=== PATIENT | female | born 1960 | race American Indian/Alaskan Native ===

== ENCOUNTER 2016-08-09 17:24 | Inpatient (IN) | payer OTHER ==
[2016-08-09] MEDS ORDERED: DULCOLAX PR PRN (18:00)
[2016-08-09] MEDS ORDERED: D50W (25GM) IV PRN (18:00)
[2016-08-09] MEDS ORDERED: SENOKOT PO PRN (18:00)
--- NOTE | 2016-08-09 18:14 | History and Physical Report ---
History of Present Illness Date: 08/09/16 Referring Facility: [facility] Date of admission: 08/09/16 17:24 Chief Complaint: acute bilateral CVAs History of present illness: POST ADMISSION PHYSICIAN EVALUATION ONSET DATE: 08/05/2016 IMPAIRMENT GROUP CODE: 01.4 ETIOLOGIC DIAGNOSIS: acute CVA; left cerebellar tonsil, lateral left cerebellum , right parieto-occipital region, right thalamus, left basal ganglia, left frontal lobe STATUS CHANGES SINCE PREADMISSION SCREENING: PAS has been reviewed. In comparison, improved alertness and swallowing on today; denies any coughing/ choking on pureed diet. Ongoing abdominal pain, however, this is chronic. Pt continues with functional deficits with gait and self cares secondary to acute CVA; remains an appropriate candidate for IRU admission. PREVIOUS FUNCTIONAL STATUS: Independent with ADLs, gait, transfers; occasionally used a straight cane in community CURRENT FUNCTIONAL STATUS: CGA-Garret for transfers; Garret for gait; Garret-totalA for ADLs HPI 55 y.o. female admitted to [facility] secondary to acute onset of altered mental status. MRI Brain showed multiple areas of acute infarction in the left cerebellar tonsil, lateral left cerebellum, right parieto-occipital region, right thalamus, left basal ganglia, left frontal lobe. Acute care course complicated by acute on chronic renal failure, improved with IV Fluids; uncontrolled HTN; UTI, treated with IV Levaquin. Pt downgraded from regular consistency to pureed diet after bedside swallow evaluation. Pt noted to have functional deficits when evaluated by PT and OT. Pt is now admitted for aggressive therapies and ongoing medical management. Past History Past Medical History: diabetes, hypertension, renal failure Past Surgical History: appendectomy, hysterectomy Social history: , lives with family. denies: smoking, alcohol abuse Family history: diabetes, hypertension Medications and Allergies Allergies Allergy/AdvReac Type Severity Reaction Status Date / Time morphine AdvReac Vomiting Verified 07/28/14 17:26 Home Medications Medication Instructions Recorded Confirmed Last Taken Type Nortriptyline [Pamelor] 50 mg PO QDAY #30 capsule 08/01/14 05/05/16 Unknown Rx cloNIDine [Catapres] 0.3 mg PO TID 30 Days 08/01/14 05/05/16 Unknown Rx AtorvaSTATin [Lipitor] 40 mg PO DAILY 04/06/16 08/09/16 Unknown History Clopidogrel [Plavix] 75 mg PO QDAY 04/06/16 05/05/16 Unknown History Glimepiride [Amaryl] 2 mg PO QAM 04/06/16 05/05/16 Unknown History Pantoprazole [Protonix TAB] 40 mg PO DAILY 04/06/16 05/05/16 Unknown History Sucralfate [Carafate] 1 gm PO HS 04/06/16 05/05/16 Unknown History cloNIDine [Catapres] 0.2 mg PO TID #90 tablet 04/11/16 05/05/16 Unknown Rx hydrALAZINE [Apresoline TAB] 25 mg PO Q8HR #90 tablet 04/11/16 05/05/16 Unknown Rx Insulin Detemir [Levemir VIAL] 25 units SQ BID 05/05/16 05/05/16 05/04/16 21:00 History 25 Clopidogrel [Plavix] 75 mg PO QDAY tablet 05/08/16 08/09/16 Unknown Rx Levofloxacin [Levaquin TAB] 750 mg PO Q48H #7 tablet 05/08/16 Unknown Rx Metoprolol [Lopressor TAB] 50 mg PO Q8H #90 tablet 05/08/16 Unknown Rx Bisacodyl [Dulcolax suppos] 10 mg CO QDAY PRN #30 supp.rect 08/09/16 08/09/16 Unknown Rx Dextrose 50% in Water [D50w (25Gm)] 50 ml IV PRN PRN #30 syringe 08/09/16 Unknown Rx Enoxaparin [Lovenox] 40 mg SUB-Q QDAY@1000 syringe 08/09/16 08/09/16 Unknown Rx Glimepiride [Amaryl] 2 mg PO QAMDIAB tablet 08/09/16 08/09/16 Unknown Rx Insulin Detemir [Levemir] 25 units SUB-Q BID units 08/09/16 08/09/16 Unknown Rx Levofloxacin [Levaquin TAB] 750 mg PO Q24HR #7 tablet 08/09/16 08/09/16 Unknown Rx Magnesium Hydroxide [Milk of 30 ml PO Q4H PRN #30 oral.liqd 08/09/16 08/09/16 Unknown Rx Magnesia] Metoprolol [Lopressor TAB] 50 mg PO BID #60 tablet 08/09/16 08/09/16 Unknown Rx Nortriptyline [Pamelor] 50 mg PO QDAY #30 capsule 08/09/16 08/09/16 Unknown Rx Ondansetron [Zofran INJ] 4 mg IV Q8H PRN #30 vial 08/09/16 Unknown Rx Pantoprazole [Protonix TAB] 40 mg PO DAILY tablet 08/09/16 08/09/16 Unknown Rx Sucralfate [Carafate] 1 gm PO HS oral.liqd 08/09/16 08/09/16 Unknown Rx cloNIDine [Catapres] 0.2 mg PO TID #30 tablet 08/09/16 08/09/16 Unknown Rx hydrALAZINE [Apresoline TAB] 25 mg PO Q8HR tablet 08/09/16 08/09/16 Unknown Rx Active Meds: Active Medications Acetaminophen (Tylenol) 650 mg PO Q4H PRN PRN Reason: Pain MILD(1-3)/Fever >100.5/GARCIA Atorvastatin Calcium (Lipitor) 40 mg PO QHS ROSA Bisacodyl (Dulcolax) 10 mg CO QDAY PRN PRN Reason: Constipation unrelieved by MOM Clonidine HCl (Catapres) 0.2 mg PO TID ROSA Clopidogrel Bisulfate (Plavix) 75 mg PO QDAY [facility] Dextrose (D50w (25gm)) 50 ml IV PRN PRN PRN Reason: Hypoglycemia Enoxaparin Sodium (Lovenox) 40 mg SUB-Q QDAY@1000 [facility] Hydralazine HCl (Apresoline) 25 mg PO Q8HR [facility] Insulin Aspart (Novolog) 0 units SUB-Q ACHS ROSA PRN Reason: Protocol Insulin Detemir (Levemir) 25 units SUB-Q BID [facility] Levofloxacin (Levaquin) 750 mg PO Q24HR [facility] Metoprolol Tartrate (Lopressor) 50 mg PO BID [facility] Nortriptyline HCl (Pamelor) 50 mg PO QDAY [facility] Oxycodone/Acetaminophen (Percocet 5/325) 1 tab PO Q6H PRN PRN Reason: Pain, Moderate (4-6) Pantoprazole Sodium (Protonix) 40 mg PO DAILY [facility] Senna (Senokot) 8.6 mg PO Q12H PRN PRN Reason: Laxative Effect Sucralfate (Carafate) 1 gm PO HS ROSA Review of Systems All systems: negative Eyes: right: blurred vision (intermittent) Ears, nose, mouth and throat: no headache Cardiovascular: no chest pain Respiratory: no cough Gastrointestinal: abdominal pain (chronic) Genitourinary Female: other (vera) Exam - Constitutional General appearance: no acute distress, obese, other (sitting up in bed) - EENT Eyes: EOM intact ENT: hearing intact - Neck Neck: supple, normal ROM - Respiratory Respiratory effort: normal Respiratory: bilateral: CTA - Cardiovascular Rhythm: regular Heart Sounds: Present: S1 & S2 - Extremities Extremities: No edema - Gastrointestinal General gastrointestinal: Present: soft, non-tender, non-distended, normal bowel sounds - Integumentary Integumentary: Present: clear - Neurologic Neurologic: moves all extremities (4/5 strength), other (mild dysarthria, mild facial droop; sensation grossly intact) - Psychiatric Psychiatric: intact judgment & insight, memory intact (flat affect), cooperative Assessment and Plan Assessment and plan: 55 y.o. female bilateral acute infarctions in the left cerebellar tonsil, lateral left cerebellum, right parieto-occipital region, right thalamus, left basal ganglia, left frontal lobe; gait dysfunction; dysphagia. The patient is medically stable, however, requires ongoing medical management. Pt is appropriate for inpatient rehabilitation admission and is thought to be able to tolerate at least 3 hours of therapy a day, 5 days a week including 1 hour of physical therapy, 1 hour of occupational therapy, and 1 hour of speech therapy. Patient is able to understand and follow basic directions and has attainable rehab goals. Potential barriers/complications include extension/recurrent CVA, falls, depression, DVT, PE, parasthesias, aspiration, seizure, hypotension, worsening renal failure. Plan 1. Rehabilitation- Pt will undergo multidisciplinary/integrative rehab PT/OT/ GLASS BLOWING INSTRUCTOR, Nursing. Areas to be addressed include, but are not limited to PT for mobility, strengthening, transfer training, ROM, endurance, stairs, balance; OT for ADLs, household tasks, adaptive equipment; GLASS BLOWING INSTRUCTOR for cognition, swallowing, compensatory techniques; Nursing for carryover of therapies, pain control, education, skin integrity, medication management, bowel/bladder management; Nutrition as needed; human services manager for discharge planning and equipment needs. Potential interventions include appropriate assistive device or adaptive equipment. Expected overall level of functional improvement by discharge is Tonia for ADLs, gait, transfers. Pt will tentatively be discharged home with outpatient PT. Estimated length of stay is 1-2 weeks. 2. s/p CVA- continue Plavix, statin; continue pureed diet and upgrade when appropriate 3. acute on chronic renal failure- s/pIVF; follow for ongoing improvement 4. UTI- continue course of levaquin 5. HTN- continue current regimen; avoid hypotension 6. DM- SSI, ADA diet; home regimen resumed; follow to avoid hypoglycemia with increasing activity 7. Chronic abdominal pain- continue carafate, protonix 8. DVT px- lovenox - Patient Problems (1) Acute ischemic stroke Current Visit: No Status: Acute (2) Abnormality of gait following cerebrovascular accident (CVA) Current Visit: No Status: Acute (3) Dysphagia as late effect of cerebrovascular accident (CVA) Current Visit: No Status: Acute (4) Acute on chronic renal failure Current Visit: No Status: Acute (5) UTI (urinary tract infection) Current Visit: Yes Status: Acute Qualifiers: Urinary tract infection type: U Hematuria presence: H Indwelling urinary catheter type: indwelling urethral catheter Encounter type: initial encounter Qualified Code(s): T83.511A - Infection and inflammatory reaction due to indwelling urethral catheter, initial encounter; N39.0 - Urinary tract infection , site not specified (6) Diabetes Current Visit: Yes Status: Chronic Qualifiers: 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 type: type 2 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 complication status: with hyperglycemia 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 complication detail: D Diabetic retinopathy severity: D Proliferative retinopathy type: P 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 macular edema: D 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 skilled nursing insulin use: with intermediate school teacher use Laterality: L Chronic kidney disease stage: C Qualified Code(s): E11.65 - Type 2 diabetes mellitus with hyperglycemia; Z79.4 - nursing home (current) use of insulin (7) Hypertension Current Visit: Yes Status: Chronic Qualifiers: Hypertension type: essential hypertension Qualified Code(s): I10 - Essential (primary) hypertension
[2016-08-09] MEDS: PERCOCET 5/325 PO PRN (19:17)
[2016-08-09] MEDS ORDERED: CATAPRES PO SCH (20:00)
[2016-08-09] MEDS ORDERED: LEVEMIR SUB-Q SCH (22:00)
[2016-08-09] MEDS ORDERED: LOPRESSOR PO SCH (22:00)
[2016-08-09] MEDS: NOVOLOG SUB-Q SCH (23:49)
[2016-08-10] MEDS: CARAFATE PO SCH ×2 (00:13→21:05)
[2016-08-10] MEDS: APRESOLINE PO SCH ×2 (00:15→15:44)
[2016-08-10 06:29] LABS: Basophils % (Auto) 0.7 % (0.0-1.8); Eosinophils % (Auto) 2.8 % (0.0-4.3); Hematocrit 33.7 % (30.3-42.9); Hemoglobin 10.7 gm/dl (10.1-14.3); Mean Corpuscular HGB Conc 32 % (30-34); Mean Corpuscular Hemoglobin 26 pg (28-32); Mean Corpuscular Volume 83 fl (79-97); Platelet Count 381 K/mm3 (140-440); Red Blood Count 4.04 M/mm3 (3.65-5.03); Red Cell Distribution Width 17.2 % (13.2-15.2); White Blood Count 10.1 K/mm3 (4.5-11.0)
[2016-08-10 06:59] LABS: Albumin 3.4 g/dL (3.9-5); Albumin/Globulin Ratio 0.9 %; BUN/Creatinine Ratio 13.52; Bilirubin,Total 0.6 mg/dL (0.1-1.2); Calcium 9.1 mg/dL (8.4-10.2); Chloride 98.6 mmol/L (98-107); Potassium 3.7 mmol/L (3.6-5.0)
[2016-08-10] MEDS ORDERED: LOPRESSOR PO SCH (09:33)
[2016-08-10] MEDS: PERCOCET 5/325 PO PRN ×3 (09:41→21:11)
[2016-08-10] MEDS: LEVAQUIN PO SCH (09:42)
[2016-08-10] MEDS: PROTONIX PO SCH (09:42)
[2016-08-10] MEDS ORDERED: LOVENOX SUB-Q SCH (10:00)
--- NOTE | 2016-08-10 13:24 | Progress Note ---
Assessment and Plan 55 y.o. female bilateral acute infarctions in the left cerebellar tonsil, lateral left cerebellum, right parieto-occipital region, right thalamus, left basal ganglia, left frontal lobe; subsequent gait dysfunction and dysphagia - s/p CVA- continue Plavix, statin - dysphagia- upgraded from pureed diet to mechanical soft; follow - acute on chronic renal failure- s/p IVF; renal function noted to be slightly elevated from previous; likely due to decreased po intake. Pt educated on need to increase fluid intake; recheck in AM, will repeat IVF if remains elevated - UTI- continue levaquin, day 3 of 5 - HTN- low BP noted overnight; meds adjusted, continue to follow closely - DM- SSI, ADA diet; levemir held due to low blood sugar; anticipate due to decreased intake of pureed diet and should improve with diet change; restart when blood sugars stable - Chronic abdominal pain- carafate, protonix - DVT px- lovenox - Patient Problems (1) Acute ischemic stroke Current Visit: No Status: Acute (2) Abnormality of gait following cerebrovascular accident (CVA) Current Visit: No Status: Acute (3) Dysphagia as late effect of cerebrovascular accident (CVA) Current Visit: No Status: Acute (4) Acute on chronic renal failure Current Visit: No Status: Acute (5) UTI (urinary tract infection) Current Visit: Yes Status: Acute Qualifiers: Urinary tract infection type: U Hematuria presence: H Indwelling urinary catheter type: indwelling urethral catheter Encounter type: initial encounter Qualified Code(s): T83.511A - Infection and inflammatory reaction due to indwelling urethral catheter, initial encounter; N39.0 - Urinary tract infection , site not specified (6) Diabetes Current Visit: Yes Status: Chronic Qualifiers: 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 type: type 2 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 complication status: with hyperglycemia 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 complication detail: D Diabetic retinopathy severity: D Proliferative retinopathy type: P 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 macular edema: D 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 exterminator helper termite insulin use: with chcf use Laterality: L Chronic kidney disease stage: C Qualified Code(s): E11.65 - Type 2 diabetes mellitus with hyperglycemia; Z79.4 - [facility] (current) use of insulin (7) Hypertension Current Visit: Yes Status: Chronic Qualifiers: Hypertension type: essential hypertension Qualified Code(s): I10 - Essential (primary) hypertension Subjective Date of service: 08/10/16 Principal diagnosis: bilateral acute infarctions in the left cerebellar tonsil, lateral left cer Interval history: Pt seen in dining room on today, F/U IPR course, s/p bilateral acute infarctions in the left cerebellar tonsil, lateral left cerebellum, right parieto-occipital region, right thalamus, left basal ganglia, left frontal lobe. Pt denies any new complaints. Diet upgraded by STRUCTURAL ANALYSIS ENGINEER to mechanical soft. Blood pressure and blood sugars noted to be low overnight Objective - Constitutional Vitals: Vital Signs - 12hr 08/10/16 08:00 Temperature 97.8 F Pulse Rate [ 93 H Left Brachial] Respiratory 20 Rate Blood Pressure 146/79 [Left Arm] O2 Sat by Pulse 100 Oximetry General appearance: Present: no acute distress, obese - EENT Eyes: EOM intact ENT: hearing intact - Neck Neck: supple, normal ROM - Respiratory Respiratory effort: normal Respiratory: bilateral: CTA - Cardiovascular Rhythm: regular Heart Sounds: Present: S1 & S2 Extremities: No edema - Gastrointestinal General gastrointestinal: Present: soft, non-tender, non-distended, normal bowel sounds - Integumentary Integumentary: clear - Neurologic Neurologic: moves all extremities, other (mild facial droop) - Psychiatric Psychiatric: cooperative (flat affect) - Allied health notes Allied health notes reviewed: ST (diet upgraded on swallow eval), OT ( supervision for eating and grooming; Garret for remaining ADLs) - Labs CBC & Chem 7: 08/10/16 06:20 08/10/16 06:20 Labs: Abnormal lab results 08/09/16 08/09/16 08/10/16 Range/Units 21:09 22:44 06:20 MCH 26 L (28-32) pg RDW 17.2 H (13.2-15.2) % [place] % (Auto) 9.9 H (0.0-7.3) % [place] # 1.0 H (0.0-0.8) K/mm3 Sodium (137-145) mmol/L BUN (7-17) mg/dL Creatinine (0.7-1.2) mg/dL Glucose (65-100) mg/dL POC Glucose 69 L 127 H (70-105) Alkaline Phosphatase (35-129) units/L Albumin (3.9-5) g/dL 08/10/16 08/10/16 08/10/16 Range/Units 06:20 06:26 11:49 MCH (28-32) pg RDW (13.2-15.2) % [place] % (Auto) (0.0-7.3) % [place] # (0.0-0.8) K/mm3 Sodium 136 L (137-145) mmol/L BUN 23 H (7-17) mg/dL Creatinine 1.7 H (0.7-1.2) mg/dL Glucose 147 H (65-100) mg/dL POC Glucose 157 H 206 H (70-105) Alkaline Phosphatase 272 H (35-129) units/L Albumin 3.4 L (3.9-5) g/dL
[2016-08-10] MEDS: LOPRESSOR PO SCH (21:05)
[2016-08-10] MEDS: NOVOLOG SUB-Q SCH (21:24)
--- NOTE | 2016-08-10 23:19 | IRU Plan of Care ---
Interdisciplinary Plan of Care - IP IRU INTERDISCIPLINARY PLAN: [facility] Inpatient Rehab Unit Plan of Care IRU Interdisciplinary Care Plan Start: 08/09/16 18: 38 Freq: Admission then PRN Status: Active Document 08/10/16 19:01 DB (Rec: 08/10/16 19:06 DB [id number]) Interdisciplinary Problem List Interdisciplinary Problem List Interdisciplinary Problem List Impaired Eating/Swallowing Query Text:Answers will Trigger Problems Impaired Bathing/Grooming and Outcomes on Worklist. Impaired Dressing Impaired Mobility Impaired Transfers Impaired Toileting Impaired Comprehension Impaired Problem Solving Impaired Memory Pain Management Knowledge Deficits Impaired Home Management Impaired Safety Medications Education Diabetes Education IRU Interdisciplinary Care Plan Therapy Services Therapy Services Will Include: Physical Therapy Query Text:Patient will be seen for a Occupational Therapy minimum of 3 hours of daily therapy 5 Speech Therapy out of 7 days a week. Therapy intensity may be adjusted within a 7 consecutive day period to effectively serve the individual needs of the patient. Treatment Frequency/Intensity/Duration Treatment Frequency 5 days per week Treatment Intensity 1 hour per discipline (PT/OT/ NUMERICAL CONTROL DRILL PRESS OPERATOR) daily Treatment Duration 10-14 days Problem Area: Eating/Swallowing Eating/Swallowing Outcomes Consume Least Restrictive Diet Eating/Swallowing Interventions Dysphagia Training Patient/Caregiver Education Problem Area: Bathing/Grooming Bathing/Grooming Outcomes Improve [place] w/ Bathing Bathing/Grooming Interventions ADL Training Use of Assistive Devices Therapeutic Exercise Therapeutic Activity Neuromuscular Re-Education Balance Work Activity Tolerance Work Patient/Caregiver Education Problem Area: Dressing Dressing Outcomes Improve [place] w/ UB Dressing Improve [place] w/ LB Dressing Dressing Interventions ADL Training Use of Assistive Devices Neuromuscular Re-Education Therapeutic Exercise Balance Work Patient/Caregiver Education Problem Area: Mobility Mobility Outcomes Improve [place] w/ Bed Mobility Improve [place] w/ Ambulation Improve [place] w/ Stairs /Curb Improve [place] w/ Wheelchair Mobility Interventions Therapeutic Exercise Neuromuscular Re-Ed. Modalities Use of Assistive Devices Patient/Caregiver Education Bed Mobility Work Gait Training W/C Mobility Work Problem Area: Transfers Transfers Outcomes Improve [place] w/ Bed Transfers Improve [place] w/ Toilet Transfers Improve [place] w/ Tub/ Shower Transfers Improve [place] w/ Car Transfers Transfers Interventions Transfer Training Therapeutic Exercise Neuromuscular Re-Education Modalities Use of Assistive Devices Patient/Caregiver Education Problem Area: Bowel/Bladder Managment Bowel/Bladder Outcomes Bowel/Bladder Interventions Problem Area: Toileting Toileting Outcomes Improve [place] w/ Toileting Toileting Interventions ADL Training Balance Work Use of Assistive Devices Patient/Caregiver Education Problem Area: Nutrition Nutrition Outcomes Understand and Comply w/ Diet Improve/Maintain Oral Intake Nutrition Interventions Nutritional Counseling Monitor Nutrient Intake Patient/Caregiver Education Problem Area: Comprehension Comprehension Outcomes Improve Comprehension Follow Commands Comprehension Interventions Receptive Language Tasks Reading Tasks Patient/Caregiver Education Problem Area: Expression Expression Outcomes Improve Vocal Quality Improve Verbalization Expression Interventions Writing Tasks Patient/Caregiver Education Problem Area: Problem Solving Problem Solving Outcomes Improve Problem Solving Problem Solving Interventions Cognitive Training Visual/Perceptual Training Safety Education Patient/Caregiver Education Problem Area: Memory Memory Outcomes Memory Interventions Problem Area: Pain Management Pain Management Outcomes Demonstrate/Verbalize Pain Strategies Pain Management Interventions Positioning/Turning Patient/Caregiver Education Problem Area: Knowledge Deficits Knowledge Deficits Outcomes Verbalize Precautions Verbalize Understanding of S/S of Stroke Knowledge Deficits Interventions Disease/Injury/Sx. Intervention Education Medication Use Education Disease Management Education Health Maintainence Education Safety Education Problem Area: Skin/Tissue Integrity Skin/Tissue Integrity Outcomes Demonstrate Understanding of Pressure Relief Skin/Tissue Integrity Interventions Pressure Relief Instruction Positioning/Turning Problem Area: Social Interaction Social Interaction Outcomes Social Interaction Interventions Problem Area: Adjustment to Disability Adjustment to Disability Outcomes Adjustment to Disability Interventions Problem Area: Discharge Concerns Discharge Concerns Outcomes Discharge Home w/ Necessary Equipment Have Home Health/Outpatient Services Discharge Concerns Interventions Discharge Planning Family/Caregiver Conference Family/Caregiver Training Problem Area: Community Reintegration Community Reintegration Outcomes Demonstrate Understanding of Community Resources Community Reintegration Interventions Provide Community Resources Problem Area: Home Management Home Management Outcomes Improve [place] w/ Home Management Home Management Interventions Money Management Tasks Meal Preparation Clothing Care Activity Tolerance Work House Cleaning Patient/Caregiver Education Problem Area: Safety Safety Outcomes Provide Safe Environment Perform Selfcare Safely Demonstrate Good Safety w/ Transfers/Mobility Safety Interventions Identify Fall Risk [place] Pt. to Environment Reduce Environmental Hazards Problem Area: Medication Education Medication Education Outcomes Patient/Caregiver will Verbalize Understanding of Medications Medication Education Interventions Explain Administration/Side Effects/Interactions Problem Area: Diabetes Education Diabetes Education Outcomes Demonstrate Knowledge of Resources Availlable in Diabetic Ed. Folder Diabetes Education Interventions Give Pt. Diabetes Education Folder Discuss Pathophysiology of Diabetes Problem Area: Oxygenation Oxygenation Outcomes Oxygenation Interventions Problem Area: Cardiovascular Cardiovascular Outcomes Cardiovascular Interventions Physician Only Medical Prognosis and Rehabilitation Patient demonstrates good Potential (Completed by Physician) rehab potential. Medical Prognosis: Good This plan of care has been developed based on the findings from the pre- admission assessment, post admission physician evaluation, information gathered from the assessments from all therapy disciplines and other pertinent clinicians. The plan of care has been reviewed and discussed in collaboration with the interdisciplinary team. The plan of care will be reviewed and updated at least weekly. 55 y.o. female bilateral acute infarctions in the left cerebellar tonsil, lateral left cerebellum, right parieto-occipital region, right thalamus, left basal ganglia, left frontal lobe; gait dysfunction; dysphagia. The patient remains at risk for extension/recurrent CVA, falls, depression, DVT, PE, parasthesias, aspiration, seizure, hypotension, worsening renal failure. Pt is tolerating therapies to date; diet upgraded to mechanical soft. Blood pressure medications adjusted due to hypotension overnight. Will also need close management of acute on chronic renal failure; may require re-initiation of IVF. Pt continues with functional deficits and remains an appropriate candidate for IRU admission.
[2016-08-11] MEDS: APRESOLINE PO SCH ×3 (01:39→16:32)
[2016-08-11] MEDS: CATAPRES PO PRN (01:39)
[2016-08-11] MEDS ORDERED: CATAPRES PO ONE (03:59)
[2016-08-11] MEDS: PERCOCET 5/325 PO PRN (04:15)
[2016-08-11 05:11] LABS: BUN/Creatinine Ratio 14.61; Calcium 9.8 mg/dL (8.4-10.2); Chloride 94.7 mmol/L (98-107)
[2016-08-11] MEDS: LOPRESSOR PO SCH ×3 (08:54→21:21)
[2016-08-11] MEDS: NOVOLOG SUB-Q SCH ×4 (10:46→22:05)
[2016-08-11] MEDS: LEVEMIR SUB-Q SCH ×2 (10:47→21:28)
[2016-08-11] MEDS: PAMELOR PO SCH (15:58)
[2016-08-11] MEDS: PROTONIX PO SCH (16:01)
[2016-08-11] MEDS: LEVAQUIN PO SCH (16:01)
[2016-08-11] MEDS: PLAVIX PO SCH (16:02)
[2016-08-11] MEDS: HEPARIN SUB-Q SCH ×2 (16:02→21:26)
[2016-08-11] MEDS: CARAFATE PO SCH (21:22)
[2016-08-12] MEDS: CATAPRES PO PRN (05:44)
[2016-08-12] MEDS: PERCOCET 5/325 PO PRN (05:50)
[2016-08-12] MEDS: APRESOLINE PO SCH ×3 (05:51→18:03)
[2016-08-12] MEDS ORDERED: ZOFRAN IV ONE (06:56)
[2016-08-12] MEDS: LEVEMIR SUB-Q SCH ×2 (08:32→21:41)
[2016-08-12] MEDS: LOPRESSOR PO SCH ×2 (08:33→21:36)
[2016-08-12] MEDS: DILAUDID PO PRN ×3 (08:33→21:36)
[2016-08-12] MEDS: PAMELOR PO SCH (08:33)
[2016-08-12] MEDS: PLAVIX PO SCH (08:34)
[2016-08-12] MEDS: NOVOLOG SUB-Q SCH ×4 (08:35→22:00)
[2016-08-12] MEDS ORDERED: APRESOLINE IV NR (09:16)
[2016-08-12] MEDS: HEPARIN SUB-Q SCH ×2 (10:20→21:41)
[2016-08-12] MEDS: PROTONIX PO SCH (10:21)
[2016-08-12] MEDS: LEVAQUIN PO SCH (10:21)
--- NOTE | 2016-08-12 11:09 | Consultation ---
History of Present Illness - Reason for Consult Consult date: 08/12/16 HTN management - History of Present Illness 55 y.o. female admitted to [facility] secondary to acute onset of altered mental status. MRI Brain showed multiple areas of acute infarction in the left cerebellar tonsil, lateral left cerebellum, right parieto-occipital region, right thalamus, left basal ganglia, left frontal lobe. Acute care course complicated by acute on chronic renal failure, improved with IV Fluids; uncontrolled HTN; UTI, treated with IV Levaquin. Pt downgraded from regular consistency to pureed diet after bedside swallow evaluation. Pt noted to have functional deficits when evaluated by PT and OT. Pt is now admitted for aggressive therapies and ongoing medical management. Past History Past Medical History: diabetes, hypertension, renal failure Past Surgical History: appendectomy, hysterectomy Social history: , lives with family. denies: smoking, alcohol abuse Family history: diabetes, hypertension Medications and Allergies Allergies Allergy/AdvReac Type Severity Reaction Status Date / Time morphine AdvReac Vomiting Verified 07/28/14 17:26 Home Medications Medication Instructions Recorded Confirmed Last Taken Type AtorvaSTATin [Lipitor] 40 mg PO DAILY 04/06/16 08/09/16 Unknown History Clopidogrel [Plavix] 75 mg PO QDAY tablet 05/08/16 08/09/16 Unknown Rx Bisacodyl [Dulcolax suppos] 10 mg [place] QDAY PRN #30 supp.rect 08/09/16 08/09/16 Unknown Rx Dextrose 50% in Water [D50w (25Gm)] 50 ml IV PRN PRN #30 syringe 08/09/16 Unknown Rx Enoxaparin [Lovenox] 40 mg SUB-Q QDAY@1000 syringe 08/09/16 08/09/16 Unknown Rx Glimepiride [Amaryl] 2 mg PO QAMDIAB tablet 08/09/16 08/09/16 Unknown Rx Insulin Detemir [Levemir] 25 units SUB-Q BID units 08/09/16 08/09/16 Unknown Rx Levofloxacin [Levaquin TAB] 750 mg PO Q24HR #7 tablet 08/09/16 08/09/16 Unknown Rx Magnesium Hydroxide [Milk of 30 ml PO Q4H PRN #30 oral.liqd 08/09/16 08/09/16 Unknown Rx Magnesia] Metoprolol [Lopressor TAB] 50 mg PO BID #60 tablet 08/09/16 08/09/16 Unknown Rx Nortriptyline [Pamelor] 50 mg PO QDAY #30 capsule 08/09/16 08/09/16 Unknown Rx Pantoprazole [Protonix TAB] 40 mg PO DAILY tablet 08/09/16 08/09/16 Unknown Rx Sucralfate [Carafate] 1 gm PO HS oral.liqd 08/09/16 08/09/16 Unknown Rx cloNIDine [Catapres] 0.2 mg PO TID #30 tablet 08/09/16 08/09/16 Unknown Rx hydrALAZINE [Apresoline TAB] 25 mg PO Q8HR tablet 08/09/16 08/09/16 Unknown Rx Active Meds: Active Medications Acetaminophen (Tylenol) 650 mg PO Q4H PRN PRN Reason: Pain MILD(1-3)/Fever >100.5/GARCIA Atorvastatin Calcium (Lipitor) 40 mg PO QHS [facility] Last Admin: 08/11/16 21:21 Dose: 40 mg Bisacodyl (Dulcolax) 10 mg [place] QDAY PRN PRN Reason: Constipation unrelieved by MOM Clonidine HCl (Catapres) 0.2 mg PO TID PRN PRN Reason: Hypertension Last Admin: 08/12/16 05:44 Dose: 0.2 mg Clopidogrel Bisulfate (Plavix) 75 mg PO QDAY [facility] Last Admin: 08/12/16 08:34 Dose: 75 mg Dextrose (D50w (25gm)) 50 ml IV PRN PRN PRN Reason: Hypoglycemia Heparin Sodium (Porcine) (Heparin) 5,000 unit SUB-Q Q12HR [facility] Last Admin: 08/12/16 10:20 Dose: 5,000 unit Hydralazine HCl (Apresoline) 25 mg PO Q8H [facility] Last Admin: 08/12/16 08:33 Dose: 25 mg Hydromorphone HCl (Dilaudid) 2 mg PO Q6H PRN PRN Reason: Pain , Severe (7-10) Last Admin: 08/12/16 08:33 Dose: 2 mg Insulin Aspart (Novolog) 0 units SUB-Q ACHS [facility] PRN Reason: Protocol Last Admin: 08/12/16 08:35 Dose: 2 units Insulin Detemir (Levemir) 10 units SUB-Q BID [facility] Last Admin: 08/12/16 08:32 Dose: 10 units Levofloxacin (Levaquin) 750 mg PO Q24HR [facility] Last Admin: 08/12/16 10:21 Dose: 750 mg Metoprolol Tartrate (Lopressor) 50 mg PO BID [facility] Last Admin: 08/12/16 08:33 Dose: 50 mg Nortriptyline HCl (Pamelor) 50 mg PO QDAY [facility] Last Admin: 08/12/16 08:33 Dose: 50 mg Ondansetron HCl (Zofran) 4 mg PO Q6H PRN PRN Reason: Nausea And Vomiting Pantoprazole Sodium (Protonix) 40 mg PO DAILY [facility] Last Admin: 08/12/16 10:21 Dose: 40 mg Senna (Senokot) 8.6 mg PO Q12H PRN PRN Reason: Laxative Effect Sucralfate (Carafate) 1 gm PO HS [facility] Last Admin: 08/11/16 21:22 Dose: 1 gm Exam - Constitutional Vitals: Temp Pulse Resp BP Pulse Ox 97.6 F 113 H 18 174/78 98 08/12/16 07:31 08/12/16 10:00 08/12/16 07:31 08/12/16 10:46 08/12/16 07:31 General appearance: Present: mild distress - EENT Eyes: Present: PERRL, EOM intact ENT: hearing intact, clear oral mucosa - Neck Neck: Present: supple, normal ROM - Respiratory Respiratory effort: normal Respiratory: bilateral: CTA - Cardiovascular Rhythm: regular Heart Sounds: Present: S1 & S2 - Extremities Extremities: no ischemia, No edema - Abdominal General gastrointestinal: Present: soft, non-tender, non-distended, normal bowel sounds - Musculoskeletal Musculoskeletal: strength equal bilaterally - Psychiatric Psychiatric: appropriate mood/affect, intact judgment & insight - Neurologic Neurologic: CNII-XII intact, moves all extremities Results - Labs CBC & Chem 7: 08/10/16 06:20 08/11/16 04:30 Labs: Abnormal lab results 08/11/16 08/11/16 08/11/16 Range/Units 10:59 16:03 20:59 POC Glucose 186 H 198 H 219 H (70-105) 08/12/16 Range/Units 05:45 POC Glucose 214 H (70-105) Assessment and Plan - Patient Problems (1) Hypertension Current Visit: Yes Status: Chronic Qualifiers: Hypertension type: essential hypertension Qualified Code(s): I10 - Essential (primary) hypertension Plan to address problem: We were consulted to manage Hypertension. Will start Hydralzine 10mg IV Q 8 secondary to the fact that patient has nausea and vomiting (2) Acute ischemic stroke Current Visit: No Status: Acute
[2016-08-12] MEDS: ZOFRAN PO PRN (13:43)
[2016-08-12] MEDS ORDERED: CATAPRES-TTS PATCH TD SCH (16:26)
[2016-08-12] MEDS: CARAFATE PO SCH (21:35)
[2016-08-13] MEDS: APRESOLINE PO SCH ×3 (00:44→17:00)
[2016-08-13 05:29] LABS: Anion Gap 19 mmol/L; Blood Urea Nitrogen 16 mg/dL (7-17); Calcium 9.7 mg/dL (8.4-10.2); Carbon Dioxide 25 mmol/L (22-30); Chloride 94.7 mmol/L (98-107); Glucose 221 mg/dL (65-100); Potassium 3.7 mmol/L (3.6-5.0); Sodium 135 mmol/L (137-145)
--- NOTE | 2016-08-13 07:41 | Progress Note ---
Assessment and Plan - Patient Problems (1) Hypertension Current Visit: Yes Status: Chronic Qualifiers: Hypertension type: essential hypertension Qualified Code(s): I10 - Essential (primary) hypertension Plan to address problem: Patient was started on clonidine patch and blood pressures well controlled today. We will decrease by mouth meds. (2) Acute ischemic stroke Current Visit: No Status: Acute Plan to address problem: Continue rehabilitation History Interval history: Patient in speech therapy. Patient state that she felt much better today Hospitalist Physical - Constitutional Vitals: Temp Pulse Resp BP Pulse Ox 97.6 F 94 H 20 136/81 100 08/13/16 04:00 08/13/16 04:00 08/13/16 04:00 08/13/16 04:00 08/13/16 04:00 General appearance: Present: no acute distress - EENT Eyes: Present: PERRL, EOM intact ENT: hearing intact, clear oral mucosa - Neck Neck: Present: supple, normal ROM - Respiratory Respiratory effort: normal Respiratory: bilateral: CTA - Cardiovascular Rhythm: regular Heart Sounds: Present: S1 & S2 - Extremities Extremities: no ischemia, No edema - Abdominal General gastrointestinal: soft, non-tender, non-distended, normal bowel sounds - Psychiatric Psychiatric: appropriate mood/affect, intact judgment & insight - Neurologic Neurologic: CNII-XII intact, moves all extremities Results - Labs CBC & Chem 7: 08/10/16 06:20 08/13/16 04:34 Labs: Laboratory Last Values WBC 10.1 K/mm3 (4.5-11.0) 08/10/16 06:20 RBC 4.04 M/mm3 (3.65-5.03) 08/10/16 06:20 Hgb 10.7 gm/dl (10.1-14.3) 08/10/16 06:20 Hct 33.7 % (30.3-42.9) 08/10/16 06:20 MCV 83 fl (79-97) 08/10/16 06:20 MCH 26 pg (28-32) L 08/10/16 06:20 MCHC 32 % (30-34) 08/10/16 06:20 RDW 17.2 % (13.2-15.2) H 08/10/16 06:20 Plt Count 381 K/mm3 (140-440) 08/10/16 06:20 Lymph % (Auto) 20.9 % (13.4-35.0) 08/10/16 06:20 [place] % (Auto) 9.9 % (0.0-7.3) H 08/10/16 06:20 Eos % (Auto) 2.8 % (0.0-4.3) 08/10/16 06:20 Baso % (Auto) 0.7 % (0.0-1.8) 08/10/16 06:20 Lymph # 2.1 K/mm3 (1.2-5.4) 08/10/16 06:20 [place] # 1.0 K/mm3 (0.0-0.8) H 08/10/16 06:20 Eos # 0.3 K/mm3 (0.0-0.4) 08/10/16 06:20 Baso # 0.1 K/mm3 (0.0-0.1) 08/10/16 06:20 Seg Neutrophils % 65.7 % (40.0-70.0) 08/10/16 06:20 Seg Neutrophils # 6.7 K/mm3 (1.8-7.7) 08/10/16 06:20 Sodium 135 mmol/L (137-145) L 08/13/16 04:34 Potassium 3.7 mmol/L (3.6-5.0) 08/13/16 04:34 Chloride 94.7 mmol/L (98-107) L 08/13/16 04:34 Carbon Dioxide 25 mmol/L (22-30) 08/13/16 04:34 Anion Gap 19 mmol/L 08/13/16 04:34 BUN 16 mg/dL (7-17) 08/13/16 04:34 Creatinine 1.0 mg/dL (0.7-1.2) 08/13/16 04:34 Estimated GFR > 60 ml/min 08/13/16 04:34 BUN/Creatinine Ratio 16.00 % 08/13/16 04:34 Glucose 221 mg/dL (65-100) H 08/13/16 04:34 POC Glucose 241 (70-105) H 08/13/16 05:52 Calcium 9.7 mg/dL (8.4-10.2) 08/13/16 04:34 Total Bilirubin 0.6 mg/dL (0.1-1.2) 08/10/16 06:20 AST 18 units/L (5-40) 08/10/16 06:20 ALT 25 units/L (7-56) 08/10/16 06:20 Alkaline Phosphatase 272 units/L (35-129) H 08/10/16 06:20 Total Protein 7.0 g/dL (6.3-8.2) D 08/10/16 06:20 Albumin 3.4 g/dL (3.9-5) L 08/10/16 06:20 Albumin/Globulin Ratio 0.9 % 08/10/16 06:20
[2016-08-13] MEDS: LOPRESSOR PO SCH (08:32)
[2016-08-13] MEDS: DILAUDID PO PRN (08:32)
[2016-08-13] MEDS: PAMELOR PO SCH (08:32)
[2016-08-13] MEDS: PLAVIX PO SCH (08:33)
[2016-08-13] MEDS: ZOFRAN PO PRN (08:33)
[2016-08-13] MEDS: NOVOLOG SUB-Q SCH ×4 (08:34→22:22)
[2016-08-13] MEDS: LEVEMIR SUB-Q SCH ×2 (08:34→22:20)
[2016-08-13] MEDS: PROTONIX PO SCH (10:15)
[2016-08-13] MEDS: LEVAQUIN PO SCH (10:15)
[2016-08-13] MEDS: HEPARIN SUB-Q SCH ×2 (10:15→22:20)
[2016-08-13] MEDS ORDERED: REGLAN PO PRN (12:03)
--- NOTE | 2016-08-13 12:08 | Progress Note ---
Assessment and Plan 55 y.o. female bilateral acute infarctions in the left cerebellar tonsil, lateral left cerebellum, right parieto-occipital region, right thalamus, left basal ganglia, left frontal lobe - s/p CVA- Plavix, statin - gait dysfunction- ongoing PT - dysphagia- tolerating mechanical soft diet - acute on chronic renal failure- resolved; BUN/Cr WNL - UTI- completed treatment - HTN- pt reports longstanding history of fluctuating blood pressure; episode of symptomatic hypotension with PT; will need to monitor closely, may require decrease dose of clonidine patch; IM managing - DM- SSI, ADA diet; slowly increase levemir to home dose now that po intake has improved and blood sugars are increasing - Chronic abdominal pain- carafate, protonix; prn reglan; likely secondary to diabetic gastroparesis; pt reports that she was recently evaluated by [facility] with upcoming F/U appointment in August - DVT px- lovenox - Patient Problems (1) Acute ischemic stroke Current Visit: No Status: Acute (2) Abnormality of gait following cerebrovascular accident (CVA) Current Visit: No Status: Acute (3) Dysphagia as late effect of cerebrovascular accident (CVA) Current Visit: No Status: Acute (4) Diabetes Current Visit: Yes Status: Chronic Qualifiers: 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 type: type 2 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 complication status: with hyperglycemia 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 complication detail: D Diabetic retinopathy severity: D Proliferative retinopathy type: P 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 macular edema: D 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 exterminator insulin 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: with jail use Laterality: L Chronic kidney disease stage: C Qualified Code(s): E11.65 - Type 2 diabetes mellitus with hyperglycemia; Z79.4 - terminal worker (current) use of insulin (5) Hypertension Current Visit: Yes Status: Chronic Qualifiers: Hypertension type: essential hypertension Qualified Code(s): I10 - Essential (primary) hypertension Subjective Date of service: 08/13/16 Principal diagnosis: bilateral acute infarctions Interval history: Pt seen in OT gym and in room on today, F/U IPR course, s/p bilateral acute infarctions in the left cerebellar tonsil, lateral left cerebellum, right parieto-occipital region, right thalamus, left basal ganglia, left frontal lobe. Pt with intermittent abdominal pain, nausea and vomiting over weekend. Also with severely elevated blood pressure; IM consulted. Pt reports improved pain on today, mild nausea, however, no vomiting. Had episode of lightheadedness while in therapy, noted to be hypotensive; placed back in bed with resolved symptoms and improving blood pressure at time of re-eval Objective - Constitutional Vitals: Vital Signs - 12hr 08/13/16 08/13/16 08/13/16 00:44 04:00 08:00 Temperature 97.6 F 98.8 F Pulse Rate 100 H Pulse Rate [ 94 H Apical] Pulse Rate [ 108 H Left Brachial] Respiratory 20 20 Rate Blood Pressure 137/86 Blood Pressure 136/81 103/70 [Left Arm] O2 Sat by Pulse 100 100 Oximetry 08/13/16 08/13/16 10:00 11:50 Temperature Pulse Rate Pulse Rate [ 108 H Apical] Pulse Rate [ Left Brachial] Respiratory Rate Blood Pressure Blood Pressure 87/60 [Left Arm] O2 Sat by Pulse Oximetry General appearance: Present: no acute distress - EENT Eyes: EOM intact ENT: hearing intact - Neck Neck: supple, normal ROM - Respiratory Respiratory effort: normal - Cardiovascular Rhythm: regular Heart Sounds: Present: S1 & S2 Extremities: No edema - Gastrointestinal General gastrointestinal: Present: soft, non-tender, non-distended, normal bowel sounds - Integumentary Integumentary: clear - Neurologic Neurologic: CNII-XII intact, moves all extremities - Psychiatric Psychiatric: appropriate mood/affect, intact judgment & insight, memory intact, cooperative (alert) - Allied health notes Allied health notes reviewed: nursing (Independent with transfers and toileting) - Labs CBC & Chem 7: 08/10/16 06:20 08/13/16 04:34 Labs: Abnormal lab results 08/12/16 08/12/16 08/12/16 Range/Units 11:55 16:21 20:24 Sodium (137-145) mmol/L Chloride (98-107) mmol/L Glucose (65-100) mg/dL POC Glucose 212 H 193 H 294 H (70-105) 08/13/16 08/13/16 08/13/16 Range/Units 04:34 05:52 11:30 Sodium 135 L (137-145) mmol/L Chloride 94.7 L (98-107) mmol/L Glucose 221 H (65-100) mg/dL POC Glucose 241 H 182 H (70-105)
[2016-08-13] MEDS: CARAFATE PO SCH (22:21)
[2016-08-14] MEDS: APRESOLINE PO SCH ×4 (00:21→18:38)
[2016-08-14] MEDS: NOVOLOG SUB-Q SCH ×4 (08:22→22:12)
[2016-08-14] MEDS: LEVEMIR SUB-Q SCH ×2 (08:22→22:08)
[2016-08-14] MEDS: PLAVIX PO SCH (08:24)
[2016-08-14] MEDS: PAMELOR PO SCH (08:24)
[2016-08-14] MEDS: PROTONIX PO SCH ×2 (08:27→10:00)
[2016-08-14] MEDS: HEPARIN SUB-Q SCH ×3 (08:28→22:10)
[2016-08-14] MEDS: DILAUDID PO PRN (09:12)
[2016-08-14] MEDS: REGLAN PO PRN (12:19)
[2016-08-14] MEDS: COLACE PO SCH ×2 (12:19→22:09)
--- NOTE | 2016-08-14 13:28 | Progress Note ---
Assessment and Plan Assessment and plan: 1. HTN Difficult to control, labile This morning SBP >200 She was on a clonidine patch earlier during this hospitalization, has been removed and most likely she has rebound hypertension Start clonidine by mouth scheduled, but at the lower dose Continue hydralazine Monitor BP and make further adjustments as needed 2. DM On long acting insulin and SSI based on BS 3. CVA Bilateral infarcts On Plavix and Lipitor In inpatient rehabilitation unit 4. DVT prophylaxis Heparin subcutaneous History Interval history: no specific complaints; BP significantly elevated this morning; stating that clonidine patch has been removed Hospitalist Physical - Constitutional Vitals: Temp Pulse Resp BP Pulse Ox 97.9 F 109 H 20 212/104 100 08/14/16 08:00 08/14/16 08:00 08/14/16 08:00 08/14/16 10:34 08/14/16 10:00 General appearance: Present: no acute distress, obese - EENT Eyes: Present: PERRL, EOM intact. Absent: scleral icterus, conjunctival injection - Neck Neck: Present: supple. Absent: enlarged thyroid, masses or JVD - Respiratory Respiratory effort: normal Respiratory: bilateral: CTA, negative: rhonchi, wheezing - Cardiovascular Rhythm: regular Heart Sounds: Present: S1 & S2. Absent: systolic murmur - Extremities Extremities: no ischemia - Abdominal General gastrointestinal: soft, non-tender, non-distended, normal bowel sounds - Psychiatric Psychiatric: cooperative - Neurologic Neurologic: CNII-XII intact, moves all extremities, no gait normal Results - Labs CBC & Chem 7: 08/10/16 06:20 08/13/16 04:34 Labs: Laboratory Last Values WBC 10.1 K/mm3 (4.5-11.0) 08/10/16 06:20 RBC 4.04 M/mm3 (3.65-5.03) 08/10/16 06:20 Hgb 10.7 gm/dl (10.1-14.3) 08/10/16 06:20 Hct 33.7 % (30.3-42.9) 08/10/16 06:20 MCV 83 fl (79-97) 08/10/16 06:20 MCH 26 pg (28-32) L 08/10/16 06:20 MCHC 32 % (30-34) 08/10/16 06:20 RDW 17.2 % (13.2-15.2) H 08/10/16 06:20 Plt Count 381 K/mm3 (140-440) 08/10/16 06:20 Lymph % (Auto) 20.9 % (13.4-35.0) 08/10/16 06:20 [place] % (Auto) 9.9 % (0.0-7.3) H 08/10/16 06:20 Eos % (Auto) 2.8 % (0.0-4.3) 08/10/16 06:20 Baso % (Auto) 0.7 % (0.0-1.8) 08/10/16 06:20 Lymph # 2.1 K/mm3 (1.2-5.4) 08/10/16 06:20 [place] # 1.0 K/mm3 (0.0-0.8) H 08/10/16 06:20 Eos # 0.3 K/mm3 (0.0-0.4) 08/10/16 06:20 Baso # 0.1 K/mm3 (0.0-0.1) 08/10/16 06:20 Seg Neutrophils % 65.7 % (40.0-70.0) 08/10/16 06:20 Seg Neutrophils # 6.7 K/mm3 (1.8-7.7) 08/10/16 06:20 Sodium 135 mmol/L (137-145) L 08/13/16 04:34 Potassium 3.7 mmol/L (3.6-5.0) 08/13/16 04:34 Chloride 94.7 mmol/L (98-107) L 08/13/16 04:34 Carbon Dioxide 25 mmol/L (22-30) 08/13/16 04:34 Anion Gap 19 mmol/L 08/13/16 04:34 BUN 16 mg/dL (7-17) 08/13/16 04:34 Creatinine 1.0 mg/dL (0.7-1.2) 08/13/16 04:34 Estimated GFR > 60 ml/min 08/13/16 04:34 BUN/Creatinine Ratio 16.00 % 08/13/16 04:34 Glucose 221 mg/dL (65-100) H 08/13/16 04:34 POC Glucose 188 (70-105) H 08/14/16 11:14 Calcium 9.7 mg/dL (8.4-10.2) 08/13/16 04:34 Total Bilirubin 0.6 mg/dL (0.1-1.2) 08/10/16 06:20 AST 18 units/L (5-40) 08/10/16 06:20 ALT 25 units/L (7-56) 08/10/16 06:20 Alkaline Phosphatase 272 units/L (35-129) H 08/10/16 06:20 Total Protein 7.0 g/dL (6.3-8.2) D 08/10/16 06:20 Albumin 3.4 g/dL (3.9-5) L 08/10/16 06:20 Albumin/Globulin Ratio 0.9 % 08/10/16 06:20
[2016-08-14] MEDS ORDERED: CATAPRES PO SCH ×2 (14:00)
[2016-08-14] MEDS: CATAPRES PO SCH ×2 (14:02→22:09)
--- NOTE | 2016-08-14 14:26 | Progress Note ---
Assessment and Plan 55 y.o. female bilateral acute infarctions in the left cerebellar tonsil, lateral left cerebellum, right parieto-occipital region, right thalamus, left basal ganglia, left frontal lobe - s/p CVA- Plavix, statin - gait dysfunction- ambulating with cane SBA/CGA - dysphagia- tolerating mechanical soft diet - HTN- continues with fluctuating BP; IM managing - DM- SSI, ADA diet; slowly increase levemir to home dose now that po intake has improved and blood sugars are increasing - Chronic abdominal pain- carafate, protonix; prn reglan before meals; likely secondary to diabetic gastroparesis - DVT px- lovenox - team conference held on today- pt requires S/U for eating, grooming; SBA for toileting; CGA for bathing and transfers; SBA-CGA for bed mobility; Garret for dressing; ambulating 340 feet with single point cane at SBA/CGA; Garret for stairs ; modA for memory, maxA for problem solving. Barriers- impulsive, right side neglect. Anticipated d/c date 08/21/2016. - Patient Problems (1) Acute ischemic stroke Current Visit: No Status: Acute (2) Abnormality of gait following cerebrovascular accident (CVA) Current Visit: No Status: Acute (3) Dysphagia as late effect of cerebrovascular accident (CVA) Current Visit: No Status: Acute (4) Diabetes Current Visit: Yes Status: Chronic Qualifiers: 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 type: type 2 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 complication status: with hyperglycemia 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 complication detail: D Diabetic retinopathy severity: D Proliferative retinopathy type: P 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 macular edema: D 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 intermediate frame tender insulin use: with intermediate frame tender use Laterality: L Chronic kidney disease stage: C Qualified Code(s): E11.65 - Type 2 diabetes mellitus with hyperglycemia; Z79.4 - detention (current) use of insulin (5) Hypertension Current Visit: Yes Status: Chronic Qualifiers: Hypertension type: essential hypertension Qualified Code(s): I10 - Essential (primary) hypertension Subjective Date of service: 08/14/16 Principal diagnosis: bilateral acute infarctions Interval history: Pt seen in room this AM, F/U IPR course, s/p bilateral acute infarctions in the left cerebellar tonsil, lateral left cerebellum, right parieto-occipital region , right thalamus, left basal ganglia, left frontal lobe. +abdominal pain this AM, 9-10 initially; 2/10 after medications; reports increased pain after meals Objective - Constitutional Vitals: Vital Signs - 12hr 08/14/16 08/14/16 08/14/16 08:00 10:00 10:34 Temperature 97.9 F Pulse Rate [ 109 H Apical] Respiratory 20 Rate Blood Pressure 212/104 Blood Pressure 120/75 [Left Arm] O2 Sat by Pulse 100 100 Oximetry 08/14/16 14:02 Temperature Pulse Rate [ Apical] Respiratory Rate Blood Pressure 181/86 Blood Pressure [Left Arm] O2 Sat by Pulse Oximetry General appearance: Present: mild distress (abdominal pain) - EENT Eyes: EOM intact ENT: hearing intact - Neck Neck: supple, normal ROM - Respiratory Respiratory effort: normal Extremities: No edema - Gastrointestinal General gastrointestinal: Present: soft, tender (diffuse), non-distended - Integumentary Integumentary: clear - Neurologic Neurologic: CNII-XII intact, moves all extremities - Psychiatric Psychiatric: cooperative (flat affect) - Labs CBC & Chem 7: 08/10/16 06:20 08/13/16 04:34 Labs: Abnormal lab results 08/13/16 08/13/16 08/14/16 Range/Units 16:28 20:33 06:21 POC Glucose 148 H 258 H 212 H (70-105) 08/14/16 Range/Units 11:14 POC Glucose 188 H (70-105)
[2016-08-14] MEDS: SENOKOT PO SCH (22:09)
[2016-08-14] MEDS: CARAFATE PO SCH (22:09)
[2016-08-15] MEDS: APRESOLINE PO SCH ×4 (00:10→21:47)
[2016-08-15] MEDS: CATAPRES PO SCH ×2 (06:31→21:48)
[2016-08-15] MEDS: NOVOLOG SUB-Q SCH ×4 (08:03→22:05)
[2016-08-15] MEDS: PAMELOR PO SCH (08:03)
[2016-08-15] MEDS: PLAVIX PO SCH (08:04)
[2016-08-15] MEDS: COLACE PO SCH ×2 (08:05→21:47)
[2016-08-15] MEDS: PROTONIX PO SCH ×2 (08:05→10:41)
[2016-08-15] MEDS: HEPARIN SUB-Q SCH ×3 (08:06→21:48)
[2016-08-15] MEDS: LEVEMIR SUB-Q SCH ×2 (08:06→21:56)
[2016-08-15] MEDS ORDERED: APRESOLINE PO SCH (11:24)
--- NOTE | 2016-08-15 11:29 | Progress Note ---
Assessment and Plan Assessment and plan: 1. HTN Difficult to control, labile, also, had rebound HTN due to clonidine misuse Regimen adjusted and BP better controlled, but becoming bordeline low Will decrease Hydralazine to 10 mg TID and Clonidine to 01 mg BID Continue to monitor BP 2. DM On long acting insulin and SSI based on BS 3. CVA Bilateral infarcts On Plavix and Lipitor In inpatient rehabilitation unit (PT/ST/OT) 4. DVT prophylaxis Heparin subcutaneous History Interval history: no specific complaints; BP better controlled Hospitalist Physical - Constitutional Vitals: Temp Pulse Resp BP Pulse Ox 97.9 F 106 H 20 112/66 100 08/15/16 08:00 08/15/16 08:00 08/15/16 08:00 08/15/16 08:00 08/15/16 08:00 General appearance: Present: no acute distress, obese - EENT Eyes: Present: PERRL, EOM intact. Absent: scleral icterus, conjunctival injection - Neck Neck: Present: supple, normal ROM. Absent: masses or JVD - Respiratory Respiratory effort: normal Respiratory: bilateral: CTA, negative: rhonchi, wheezing - Cardiovascular Rhythm: other (tachycardic) Heart Sounds: Present: S1 & S2. Absent: systolic murmur - Extremities Extremities: no ischemia - Abdominal General gastrointestinal: soft, non-tender, non-distended, normal bowel sounds - Psychiatric Psychiatric: cooperative - Neurologic Neurologic: moves all extremities, no gait normal Results - Labs CBC & Chem 7: 08/10/16 06:20 08/13/16 04:34 Labs: Laboratory Last Values WBC 10.1 K/mm3 (4.5-11.0) 08/10/16 06:20 RBC 4.04 M/mm3 (3.65-5.03) 08/10/16 06:20 Hgb 10.7 gm/dl (10.1-14.3) 08/10/16 06:20 Hct 33.7 % (30.3-42.9) 08/10/16 06:20 MCV 83 fl (79-97) 08/10/16 06:20 MCH 26 pg (28-32) L 08/10/16 06:20 MCHC 32 % (30-34) 08/10/16 06:20 RDW 17.2 % (13.2-15.2) H 08/10/16 06:20 Plt Count 381 K/mm3 (140-440) 08/10/16 06:20 Lymph % (Auto) 20.9 % (13.4-35.0) 08/10/16 06:20 [place] % (Auto) 9.9 % (0.0-7.3) H 08/10/16 06:20 Eos % (Auto) 2.8 % (0.0-4.3) 08/10/16 06:20 Baso % (Auto) 0.7 % (0.0-1.8) 08/10/16 06:20 Lymph # 2.1 K/mm3 (1.2-5.4) 08/10/16 06:20 [place] # 1.0 K/mm3 (0.0-0.8) H 08/10/16 06:20 Eos # 0.3 K/mm3 (0.0-0.4) 08/10/16 06:20 Baso # 0.1 K/mm3 (0.0-0.1) 08/10/16 06:20 Seg Neutrophils % 65.7 % (40.0-70.0) 08/10/16 06:20 Seg Neutrophils # 6.7 K/mm3 (1.8-7.7) 08/10/16 06:20 Sodium 135 mmol/L (137-145) L 08/13/16 04:34 Potassium 3.7 mmol/L (3.6-5.0) 08/13/16 04:34 Chloride 94.7 mmol/L (98-107) L 08/13/16 04:34 Carbon Dioxide 25 mmol/L (22-30) 08/13/16 04:34 Anion Gap 19 mmol/L 08/13/16 04:34 BUN 16 mg/dL (7-17) 08/13/16 04:34 Creatinine 1.0 mg/dL (0.7-1.2) 08/13/16 04:34 Estimated GFR > 60 ml/min 08/13/16 04:34 BUN/Creatinine Ratio 16.00 % 08/13/16 04:34 Glucose 221 mg/dL (65-100) H 08/13/16 04:34 POC Glucose 169 (70-105) H 08/15/16 06:34 Calcium 9.7 mg/dL (8.4-10.2) 08/13/16 04:34 Total Bilirubin 0.6 mg/dL (0.1-1.2) 08/10/16 06:20 AST 18 units/L (5-40) 08/10/16 06:20 ALT 25 units/L (7-56) 08/10/16 06:20 Alkaline Phosphatase 272 units/L (35-129) H 08/10/16 06:20 Total Protein 7.0 g/dL (6.3-8.2) D 08/10/16 06:20 Albumin 3.4 g/dL (3.9-5) L 08/10/16 06:20 Albumin/Globulin Ratio 0.9 % 08/10/16 06:20
[2016-08-15] MEDS: REGLAN PO PRN (11:51)
[2016-08-15 14:24] LABS: Creatine Kinase MB 3.8 ng/mL (0.0-4.0)
[2016-08-15 14:26] LABS: Calcium 9.8 mg/dL (8.4-10.2); Potassium 3.9 mmol/L (3.6-5.0)
[2016-08-15] MEDS: DILAUDID PO PRN (14:55)
--- NOTE | 2016-08-15 15:48 | Nuclear Medicine Report ---
LUNG SCAN, VENTILATION AND PERFUSION: Inhalation of Xenon gas demonstrates a normal distribution of the activity throughout both lungs. The wash out phases show no focal retention of activity. After injection of Technetium 99m macroaggregated albumin gamma camera imaging of the lungs in multiple projections demonstrates normal pulmonary contours with a homogeneous distribution of activity. No focal areas of perfusion deficiency are identified. IMPRESSION: Normal study.
--- NOTE | 2016-08-15 16:27 | Progress Note ---
Assessment and Plan 55 y.o. female bilateral acute infarctions in the left cerebellar tonsil, lateral left cerebellum, right parieto-occipital region, right thalamus, left basal ganglia, left frontal lobe - s/p CVA- Plavix, statin - gait dysfunction- ambulated with small based quad cane on today with SBA/CGA - dysphagia- tolerating mechanical soft diet - HTN- BP remains uncontrolled, fluctuating; IM managing and med changes noted - DM- SSI, ADA diet; stable; continue to follow; avoid hypoglycemia - Chronic abdominal pain- carafate, protonix; prn reglan before meals; likely secondary to diabetic gastroparesis - DVT px- lovenox - chest pain work-up on today noted to be negative; likely anxiety related as pt reports history of anxiety with panic attacks - Patient Problems (1) Acute ischemic stroke Current Visit: No Status: Acute (2) Abnormality of gait following cerebrovascular accident (CVA) Current Visit: No Status: Acute (3) Dysphagia as late effect of cerebrovascular accident (CVA) Current Visit: No Status: Acute (4) Diabetes Current Visit: Yes Status: Chronic Qualifiers: 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 type: type 2 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 complication status: with hyperglycemia 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 complication detail: D Diabetic retinopathy severity: D Proliferative retinopathy type: P 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 macular edema: D 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 terminologist insulin use: with care home use Laterality: L Chronic kidney disease stage: C Qualified Code(s): E11.65 - Type 2 diabetes mellitus with hyperglycemia; Z79.4 - 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 Pt with chest pain on this AM; stat troponin noted to be WNL. Pt continued with chest pain; also reported shortness of breath and noted to be tachycardic. V/Q scan completed; noted to be negative for PE. Pt later reported history of anxiety for many years. Objective - Constitutional Vitals: Vital Signs - 12hr 03/08/15/16 08/15/16 06:31 08:00 13:44 Temperature 97.9 F Pulse Rate 98 H 111 H Pulse Rate [ 106 H Left Brachial] Respiratory 20 Rate Blood Pressure 113/54 165/100 Blood Pressure 112/66 [Left Arm] O2 Sat by Pulse 100 Oximetry General appearance: Present: mild distress (+anxiety), obese - EENT Eyes: EOM intact ENT: hearing intact - Neck Neck: supple, normal ROM - Respiratory Respiratory effort: normal Respiratory: bilateral: CTA - Cardiovascular Heart Sounds: Present: S1 & S2 (tachy) Extremities: No edema - Gastrointestinal General gastrointestinal: Present: soft, non-tender, non-distended, normal bowel sounds - Integumentary Integumentary: clear - Neurologic Neurologic: CNII-XII intact, moves all extremities - Psychiatric Psychiatric: cooperative (follows commands; +anxiety; flat affect) - Allied health notes Allied health notes reviewed: PT (CGA for transfers; CGA-SBA for gait and stairs ) - Labs CBC & Chem 7: 08/10/16 06:20 08/15/16 13:36 Labs: Abnormal lab results 08/14/16 08/15/16 08/15/16 Range/Units 21:48 06:34 11:24 Sodium (137-145) mmol/L Chloride (98-107) mmol/L BUN (7-17) mg/dL Creatinine (0.7-1.2) mg/dL Glucose (65-100) mg/dL POC Glucose 161 H 169 H 226 H (70-105) CK-MB (CK-2) Rel Index (0-4) 08/15/16 08/15/16 Range/Units 13:36 13:36 Sodium 135 L (137-145) mmol/L Chloride 95.0 L (98-107) mmol/L BUN 21 H (7-17) mg/dL Creatinine 1.4 H (0.7-1.2) mg/dL Glucose 241 H (65-100) mg/dL POC Glucose (70-105) CK-MB (CK-2) Rel Index 6.0 H (0-4)
[2016-08-15] MEDS: SENOKOT PO SCH (21:47)
[2016-08-15] MEDS: CARAFATE PO SCH (21:48)
[2016-08-16] MEDS: APRESOLINE PO SCH ×3 (05:38→22:04)
[2016-08-16] MEDS: HEPARIN SUB-Q SCH ×3 (08:48→22:06)
[2016-08-16] MEDS: PAMELOR PO SCH (08:48)
[2016-08-16] MEDS: PROTONIX PO SCH ×2 (08:48→10:47)
[2016-08-16] MEDS: COLACE PO SCH ×2 (08:48→22:03)
[2016-08-16] MEDS: PLAVIX PO SCH (08:48)
[2016-08-16] MEDS: NOVOLOG SUB-Q SCH ×4 (08:50→22:05)
[2016-08-16] MEDS: LEVEMIR SUB-Q SCH ×2 (08:50→22:06)
[2016-08-16] MEDS ORDERED: NACL 0.9% 1000 ML 1,000 ML IV SCH (10:00)
[2016-08-16] MEDS: CATAPRES PO SCH ×2 (10:46→22:04)
[2016-08-16] MEDS: DILAUDID PO PRN ×2 (12:07→22:25)
[2016-08-16] MEDS: TYLENOL PO PRN (12:34)
[2016-08-16] MEDS: REGLAN PO PRN (12:53)
--- NOTE | 2016-08-16 16:11 | Progress Note ---
Assessment and Plan 55 y.o. female bilateral acute infarctions in the left cerebellar tonsil, lateral left cerebellum, right parieto-occipital region, right thalamus, left basal ganglia, left frontal lobe - s/p CVA- Plavix, statin - gait dysfunction- CGA-supervision for gait; no chest pain during PT - dysphagia- tolerating mechanical soft diet - HTN- BP remains uncontrolled, fluctuating; IM managing - DM- SSI, ADA diet; increased levemir to 15U BID - Chronic abdominal pain- carafate, protonix; prn reglan before meals; likely secondary to diabetic gastroparesis - DVT px- lovenox - intermittent chest pain- Cardiology consult due to atypical chest pain - case discussed with IM - Patient Problems (1) Acute ischemic stroke Current Visit: No Status: Acute (2) Abnormality of gait following cerebrovascular accident (CVA) Current Visit: No Status: Acute (3) Dysphagia as late effect of cerebrovascular accident (CVA) Current Visit: No Status: Acute (4) Diabetes Current Visit: Yes Status: Chronic Qualifiers: 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 type: type 2 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 complication status: with hyperglycemia 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 complication detail: D Diabetic retinopathy severity: D Proliferative retinopathy type: P 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 macular edema: D 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 inspector insulin use: with watermelon inspector use Laterality: L Chronic kidney disease stage: C Qualified Code(s): E11.65 - Type 2 diabetes mellitus with hyperglycemia; Z79.4 - [facility] (current) use of insulin (5) Hypertension Current Visit: Yes Status: Chronic Qualifiers: Hypertension type: essential hypertension Qualified Code(s): I10 - Essential (primary) hypertension Subjective Date of service: 08/16/16 Principal diagnosis: bilateral acute infarctions Interval history: Pt seen in room this afternoon, F/U IPR course, s/p bilateral acute infarctions in the left cerebellar tonsil, lateral left cerebellum, right parieto-occipital region, right thalamus, left basal ganglia, left frontal lobe. Pt again with acute onset of chest pain, following session of speech therapy. Also with episode of nausea and vomiting. Pt reports outpt pricing analyst, Dr. Elliott; will consult [facility] for atypical chest pain Objective - Constitutional Vitals: Vital Signs - 12hr 08/16/16 08/16/16 08/16/16 05:38 07:30 10:46 Temperature 98.1 F Pulse Rate 98 H 103 H Pulse Rate [ 100 H Left Brachial] Respiratory 16 Rate Blood Pressure 151/75 187/95 Blood Pressure 132/73 [Left Arm] O2 Sat by Pulse 99 Oximetry 08/16/16 14:13 Temperature Pulse Rate 100 H Pulse Rate [ Left Brachial] Respiratory Rate Blood Pressure 198/104 Blood Pressure [Left Arm] O2 Sat by Pulse Oximetry General appearance: Present: mild distress, other (lying on bed) - EENT Eyes: EOM intact ENT: hearing intact - Neck Neck: supple, normal ROM - Respiratory Respiratory effort: normal Respiratory: bilateral: CTA - Cardiovascular Rhythm: regular Heart Sounds: Present: S1 & S2 Extremities: No edema - Gastrointestinal General gastrointestinal: Present: soft, tender, non-distended, normal bowel sounds - Neurologic Neurologic: CNII-XII intact, moves all extremities - Psychiatric Psychiatric: cooperative (flat affect; seems distant at times during conversation, however, response appropriately) - Allied health notes Allied health notes reviewed: PT (CGA for transfers; CGA-supervision for gait > 600 feet) - Labs CBC & Chem 7: 08/10/16 06:20 08/15/16 13:36 Labs: Abnormal lab results 08/15/16 08/15/16 08/16/16 Range/Units 16:11 20:41 05:57 POC Glucose 203 H 161 H 162 H (70-105) 08/16/16 Range/Units 11:52 POC Glucose 247 H (70-105)
--- NOTE | 2016-08-16 16:33 | Consultation ---
History of Present Illness Consult date: 08/16/16 Consult reason: chest pain History of present illness: This is a 55yr old woman with recurrent CVA whom is admitted to acute rehab for aggressive therapies. Patient previously considered not a candidate for oral anticoagulation due to acute blood loss anemia and noncompliant with outpatient INR checks. She is currently on clopidogrel. Cardiac consultation requested for atypical chest pain. Chest pain worse with palpation and deep breathing. An ECG shows a sinus tachycardia. No acute ischemic changes. Most recent perfusion stress test was normal. Most recent echocardiogram reports a normal right ventricular and right atrial size; normal left ventricular systolic function, EF 50-55%. A OLAF done 6 months ago reports no cardioembolic source. There was an incidental finding of a PFO. Past History Past Medical History: diabetes, hypertension, renal failure Past Surgical History: appendectomy, hysterectomy Social history: , lives with family. denies: smoking, alcohol abuse Family history: diabetes, hypertension Medications and Allergies Allergies Allergy/AdvReac Type Severity Reaction Status Date / Time morphine AdvReac Vomiting Verified 07/28/14 17:26 Home Medications Medication Instructions Recorded Confirmed Last Taken Type AtorvaSTATin [Lipitor] 40 mg PO DAILY 04/06/16 08/09/16 Unknown History Clopidogrel [Plavix] 75 mg PO QDAY tablet 05/08/16 08/09/16 Unknown Rx Bisacodyl [Dulcolax suppos] 10 mg DC QDAY PRN #30 supp.rect 08/09/16 08/09/16 Unknown Rx Dextrose 50% in Water [D50w (25Gm)] 50 ml IV PRN PRN #30 syringe 08/09/16 Unknown Rx Enoxaparin [Lovenox] 40 mg SUB-Q QDAY@1000 syringe 08/09/16 08/09/16 Unknown Rx Glimepiride [Amaryl] 2 mg PO QAMDIAB tablet 08/09/16 08/09/16 Unknown Rx Insulin Detemir [Levemir] 25 units SUB-Q BID units 08/09/16 08/09/16 Unknown Rx Levofloxacin [Levaquin TAB] 750 mg PO Q24HR #7 tablet 08/09/16 08/09/16 Unknown Rx Magnesium Hydroxide [Milk of 30 ml PO Q4H PRN #30 oral.liqd 08/09/16 08/09/16 Unknown Rx Magnesia] Metoprolol [Lopressor TAB] 50 mg PO BID #60 tablet 08/09/16 08/09/16 Unknown Rx Nortriptyline [Pamelor] 50 mg PO QDAY #30 capsule 08/09/16 08/09/16 Unknown Rx Pantoprazole [Protonix TAB] 40 mg PO DAILY tablet 08/09/16 08/09/16 Unknown Rx Sucralfate [Carafate] 1 gm PO HS oral.liqd 08/09/16 08/09/16 Unknown Rx cloNIDine [Catapres] 0.2 mg PO TID #30 tablet 08/09/16 08/09/16 Unknown Rx hydrALAZINE [Apresoline TAB] 25 mg PO Q8HR tablet 08/09/16 08/09/16 Unknown Rx Active Meds: Active Medications Acetaminophen (Tylenol) 650 mg PO Q4H PRN PRN Reason: Pain MILD(1-3)/Fever >100.5/GARCIA Last Admin: 08/16/16 12:34 Dose: 650 mg Atorvastatin Calcium (Lipitor) 40 mg PO QHS [facility] Last Admin: 08/15/16 21:47 Dose: 40 mg Bisacodyl (Dulcolax) 10 mg DC QDAY PRN PRN Reason: Constipation unrelieved by MOM Clonidine HCl (Catapres) 0.1 mg PO Q12HR [facility] Last Admin: 08/16/16 10:46 Dose: 0.1 mg Clopidogrel Bisulfate (Plavix) 75 mg PO QDAY [facility] Last Admin: 08/16/16 08:48 Dose: 75 mg Dextrose (D50w (25gm)) 50 ml IV PRN PRN PRN Reason: Hypoglycemia Docusate Sodium (Colace) 100 mg PO BID [facility] Last Admin: 08/16/16 08:48 Dose: 100 mg Heparin Sodium (Porcine) (Heparin) 5,000 unit SUB-Q Q12HR [facility] Last Admin: 08/16/16 10:46 Dose: Not Given Hydralazine HCl (Apresoline) 10 mg PO Q8HR [facility] Last Admin: 08/16/16 14:13 Dose: 10 mg Hydromorphone HCl (Dilaudid) 2 mg PO Q6H PRN PRN Reason: Pain , Severe (7-10) Last Admin: 08/16/16 12:07 Dose: 2 mg Sodium Chloride (Nacl 0.9% 1000 Ml) 1,000 mls @ 75 mls/hr IV DIRECT [facility] Insulin Aspart (Novolog) 0 units SUB-Q ACHS [facility] PRN Reason: Protocol Last Admin: 08/16/16 12:07 Dose: 2 units Insulin Detemir (Levemir) 15 units SUB-Q BID [facility] Metoclopramide HCl (Reglan) 5 mg PO AC PRN PRN Reason: Nausea Last Admin: 08/16/16 12:53 Dose: 5 mg Nortriptyline HCl (Pamelor) 50 mg PO QDAY [facility] Last Admin: 08/16/16 08:48 Dose: 50 mg Pantoprazole Sodium (Protonix) 40 mg PO DAILY [facility] Last Admin: 08/16/16 10:47 Dose: Not Given Senna (Senokot) 8.6 mg PO QHS [facility] Last Admin: 08/15/16 21:47 Dose: 8.6 mg Sucralfate (Carafate) 1 gm PO HS [facility] Last Admin: 08/15/16 21:48 Dose: 1 gm Physical Examination Vital Signs Temp Pulse Resp BP Pulse Ox 98.1 F 87 18 102/62 100 08/09/16 18:00 08/09/16 18:00 08/09/16 18:00 08/09/16 18:00 08/09/16 18:00 General appearance: no acute distress HEENT: Positive: PERRL Neck: Positive: trachea midline Cardiac: Positive: Tachycardia Results 08/10/16 06:20 08/15/16 13:36 Assessment and Plan Recurrent CVA Hypertension Diabetes Chest pain, atypical PFO
--- NOTE | 2016-08-16 16:39 | Event Note ---
Date: 08/16/16 Cardiology consultation is requested for this 55-year-old woman who is in the rehabilitation unit after a bilateral CVA. The cardiac consultation was for atypical, poorly characterized chest pain. But on further review, the patient is noted with multiple CVAs in the past year, each episode manifested as multiple brain infarcts. In December 2015, she was evaluated by cardiology with a OLAF, which showed well preserved left ventricle systolic function, ejection fraction 50-55%, but an incidental finding of a patent foramen ovale. As a result of the PFO, she was recommended to be treated with Coumadin. The patient presented again to the hospital in April 2016, with anemia and GI bleeding in the setting of a supratherapeutic INR. At this time he was determined that she was poorly compliant with outpatient INR checks and therefore Coumadin was discontinued. On the current presentation with recurrent, multiple brain infarcts, it will be prudent to consider her for percutaneous closure of the PFO. Neurology consultation to recommend anticoagulation or antiplatelet regimen until further evaluation as outpatient for PFO closure.
--- NOTE | 2016-08-16 16:43 | Progress Note ---
Assessment and Plan Assessment and plan: 1. HTN Difficult to control, labile, also, had rebound HTN due to clonidine misuse Regimen adjusted and BP better controlled, but became bordeline low, so both hydralazine and clonidine doses have been decreased BP better Continue to monitor 2. ? Chest pain/abdominal pain Seems to have a history of similar symptoms EKG, cardiac enzymes, electrolytes checked and within normal limits Followed by Dr. Elliott; as she may have recent cardiac workup, cardiology consulted to obtain records from the office and make further recommendations Rule out gastroparesis 3. DM On long acting insulin and SSI based on BS BS>200, so will increase Levemir dose 4. CVA Bilateral infarcts On Plavix and Lipitor In inpatient rehabilitation unit (PT/ST/OT) 5. DVT prophylaxis Heparin subcutaneous History Interval history: Yesterday c/o chest pain; EKG, cardiac enzymes, electrolytes checked and within normal limits This morning complained of abdominal pain and shortness of breath, stating that these symptoms are not new Hospitalist Physical - Constitutional Vitals: Temp Pulse Resp BP Pulse Ox 98.1 F 100 H 16 198/104 99 08/16/16 07:30 08/16/16 14:13 08/16/16 07:30 08/16/16 14:13 08/16/16 07:30 General appearance: Present: no acute distress, obese - EENT Eyes: Present: PERRL, EOM intact. Absent: scleral icterus, conjunctival injection - Neck Neck: Present: supple, normal ROM. Absent: masses or JVD - Respiratory Respiratory effort: normal Respiratory: bilateral: CTA, negative: rales, rhonchi, wheezing - Cardiovascular Rhythm: regular Heart Sounds: Present: S1 & S2. Absent: systolic murmur - Extremities Extremities: no ischemia - Abdominal General gastrointestinal: soft, non-tender, non-distended, normal bowel sounds - Psychiatric Psychiatric: other (flat affect) - Neurologic Neurologic: no gait normal Results - Labs CBC & Chem 7: 08/10/16 06:20 08/15/16 13:36 Labs: Laboratory Last Values WBC 10.1 K/mm3 (4.5-11.0) 08/10/16 06:20 RBC 4.04 M/mm3 (3.65-5.03) 08/10/16 06:20 Hgb 10.7 gm/dl (10.1-14.3) 08/10/16 06:20 Hct 33.7 % (30.3-42.9) 08/10/16 06:20 MCV 83 fl (79-97) 08/10/16 06:20 MCH 26 pg (28-32) L 08/10/16 06:20 MCHC 32 % (30-34) 08/10/16 06:20 RDW 17.2 % (13.2-15.2) H 08/10/16 06:20 Plt Count 381 K/mm3 (140-440) 08/10/16 06:20 Lymph % (Auto) 20.9 % (13.4-35.0) 08/10/16 06:20 [place] % (Auto) 9.9 % (0.0-7.3) H 08/10/16 06:20 Eos % (Auto) 2.8 % (0.0-4.3) 08/10/16 06:20 Baso % (Auto) 0.7 % (0.0-1.8) 08/10/16 06:20 Lymph # 2.1 K/mm3 (1.2-5.4) 08/10/16 06:20 [place] # 1.0 K/mm3 (0.0-0.8) H 08/10/16 06:20 Eos # 0.3 K/mm3 (0.0-0.4) 08/10/16 06:20 Baso # 0.1 K/mm3 (0.0-0.1) 08/10/16 06:20 Seg Neutrophils % 65.7 % (40.0-70.0) 08/10/16 06:20 Seg Neutrophils # 6.7 K/mm3 (1.8-7.7) 08/10/16 06:20 Sodium 135 mmol/L (137-145) L 08/15/16 13:36 Potassium 3.9 mmol/L (3.6-5.0) 08/15/16 13:36 Chloride 95.0 mmol/L (98-107) L 08/15/16 13:36 Carbon Dioxide 25 mmol/L (22-30) 08/15/16 13:36 Anion Gap 19 mmol/L 08/15/16 13:36 BUN 21 mg/dL (7-17) H 08/15/16 13:36 Creatinine 1.4 mg/dL (0.7-1.2) H 08/15/16 13:36 Estimated GFR 48 ml/min 08/15/16 13:36 BUN/Creatinine Ratio 15.00 % 08/15/16 13:36 Glucose 241 mg/dL (65-100) H 08/15/16 13:36 POC Glucose 247 (70-105) H 08/16/16 11:52 Calcium 9.8 mg/dL (8.4-10.2) 08/15/16 13:36 Magnesium 1.9 mg/dL (1.7-2.3) 08/15/16 13:36 Total Bilirubin 0.6 mg/dL (0.1-1.2) 08/10/16 06:20 AST 18 units/L (5-40) 08/10/16 06:20 ALT 25 units/L (7-56) 08/10/16 06:20 Alkaline Phosphatase 272 units/L (35-129) H 08/10/16 06:20 Total Creatine Kinase 63 units/L (30-135) 08/15/16 13:36 CK-MB (CK-2) 3.8 ng/mL (0.0-4.0) 08/15/16 13:36 CK-MB (CK-2) Rel Index 6.0 (0-4) H 08/15/16 13:36 Troponin T 0.014 ng/mL (0.00-0.029) 08/15/16 13:36 Total Protein 7.0 g/dL (6.3-8.2) D 08/10/16 06:20 Albumin 3.4 g/dL (3.9-5) L 08/10/16 06:20 Albumin/Globulin Ratio 0.9 % 08/10/16 06:20
[2016-08-16] MEDS ORDERED: LEVEMIR SUB-Q SCH (22:00)
[2016-08-16] MEDS: SENOKOT PO SCH (22:03)
[2016-08-16] MEDS: CARAFATE PO SCH (22:03)
[2016-08-17] MEDS: APRESOLINE PO SCH ×3 (05:51→21:35)
[2016-08-17 07:06] LABS: Anion Gap 17 mmol/L; BUN/Creatinine Ratio 17.77; Blood Urea Nitrogen 16 mg/dL (7-17); Calcium 9.3 mg/dL (8.4-10.2); Carbon Dioxide 26 mmol/L (22-30); Chloride 96.5 mmol/L (98-107); Glucose 167 mg/dL (65-100); Potassium 3.5 mmol/L (3.6-5.0); Sodium 136 mmol/L (137-145)
[2016-08-17 07:12] LABS: Hematocrit 33.4 % (30.3-42.9); Hemoglobin 10.8 gm/dl (10.1-14.3); Mean Corpuscular HGB Conc 32 % (30-34); Mean Corpuscular Hemoglobin 27 pg (28-32); Mean Corpuscular Volume 82 fl (79-97); Platelet Count 446 K/mm3 (140-440); Red Blood Count 4.08 M/mm3 (3.65-5.03); Red Cell Distribution Width 16.8 % (13.2-15.2); White Blood Count 9.6 K/mm3 (4.5-11.0)
[2016-08-17] MEDS: COLACE PO SCH ×2 (08:12→21:36)
[2016-08-17] MEDS: PLAVIX PO SCH (08:12)
[2016-08-17] MEDS: LEVEMIR SUB-Q SCH ×2 (08:12→21:39)
[2016-08-17] MEDS: PAMELOR PO SCH (08:12)
[2016-08-17] MEDS: NOVOLOG SUB-Q SCH ×4 (08:14→22:00)
--- NOTE | 2016-08-17 08:46 | Progress Note ---
Assessment and Plan Assessment and plan: 1. HTN Difficult to control, labile, and also, had rebound HTN due to clonidine misuse After initial adjustment of her regimen BP became bordeline low, so both hydralazine and clonidine doses have been decreased Now BP well controlled with SBP in 120-140s Continue to monitor 2. ? Chest pain/abdominal pain Seems to have a history of similar symptoms EKG, cardiac enzymes, electrolytes checked and within normal limits Followed by Dr. Elliott; as she may have recent cardiac workup, cardiology consulted to obtain records from the office and make further recommendations Rule out gastroparesis 3. DM On long acting insulin and SSI based on BS BS>200, so Levemir dose increased 08/16 Monitoring 4. CVA Bilateral infarcts On Plavix and Lipitor In inpatient rehabilitation unit (PT/ST/OT) Found to have PFO - outpatient f/u with cardiology for repair recommended 5. DVT prophylaxis Heparin subcutaneous History Interval history: no acute events, doing well this morning Hospitalist Physical - Constitutional Vitals: Temp Pulse Resp BP Pulse Ox 98.4 F 96 H 18 122/78 100 08/17/16 07:22 08/17/16 07:22 08/17/16 07:22 08/17/16 07:22 08/17/16 07:22 General appearance: Present: no acute distress, obese - EENT Eyes: Present: PERRL, EOM intact. Absent: scleral icterus, conjunctival injection - Neck Neck: Present: normal ROM. Absent: enlarged thyroid, masses or JVD - Respiratory Respiratory effort: normal Respiratory: bilateral: CTA, negative: rhonchi, wheezing - Cardiovascular Rhythm: other (tachycardic) Heart Sounds: Present: S1 & S2. Absent: systolic murmur - Extremities Extremities: no ischemia - Abdominal General gastrointestinal: soft, non-tender, non-distended, normal bowel sounds - Psychiatric Psychiatric: other (flat affect) - Neurologic Neurologic: no gait normal Results - Labs CBC & Chem 7: 08/17/16 06:05 08/17/16 06:05 Labs: Laboratory Last Values WBC 9.6 K/mm3 (4.5-11.0) 08/17/16 06:05 RBC 4.08 M/mm3 (3.65-5.03) 08/17/16 06:05 Hgb 10.8 gm/dl (10.1-14.3) 08/17/16 06:05 Hct 33.4 % (30.3-42.9) 08/17/16 06:05 MCV 82 fl (79-97) 08/17/16 06:05 MCH 27 pg (28-32) L 08/17/16 06:05 MCHC 32 % (30-34) 08/17/16 06:05 RDW 16.8 % (13.2-15.2) H 08/17/16 06:05 Plt Count 446 K/mm3 (140-440) H 08/17/16 06:05 Lymph % (Auto) 20.9 % (13.4-35.0) 08/10/16 06:20 [place] % (Auto) 9.9 % (0.0-7.3) H 08/10/16 06:20 Eos % (Auto) 2.8 % (0.0-4.3) 08/10/16 06:20 Baso % (Auto) 0.7 % (0.0-1.8) 08/10/16 06:20 Lymph # 2.1 K/mm3 (1.2-5.4) 08/10/16 06:20 [place] # 1.0 K/mm3 (0.0-0.8) H 08/10/16 06:20 Eos # 0.3 K/mm3 (0.0-0.4) 08/10/16 06:20 Baso # 0.1 K/mm3 (0.0-0.1) 08/10/16 06:20 Seg Neutrophils % 65.7 % (40.0-70.0) 08/10/16 06:20 Seg Neutrophils # 6.7 K/mm3 (1.8-7.7) 08/10/16 06:20 Sodium 136 mmol/L (137-145) L 08/17/16 06:05 Potassium 3.5 mmol/L (3.6-5.0) L 08/17/16 06:05 Chloride 96.5 mmol/L (98-107) L 08/17/16 06:05 Carbon Dioxide 26 mmol/L (22-30) 08/17/16 06:05 Anion Gap 17 mmol/L 08/17/16 06:05 BUN 16 mg/dL (7-17) 08/17/16 06:05 Creatinine 0.9 mg/dL (0.7-1.2) 08/17/16 06:05 Estimated GFR > 60 ml/min 08/17/16 06:05 BUN/Creatinine Ratio 17.77 % 08/17/16 06:05 Glucose 167 mg/dL (65-100) H 08/17/16 06:05 POC Glucose 184 (70-105) H 08/17/16 05:50 Calcium 9.3 mg/dL (8.4-10.2) 08/17/16 06:05 Magnesium 1.9 mg/dL (1.7-2.3) 08/15/16 13:36 Total Bilirubin 0.6 mg/dL (0.1-1.2) 08/10/16 06:20 AST 18 units/L (5-40) 08/10/16 06:20 ALT 25 units/L (7-56) 08/10/16 06:20 Alkaline Phosphatase 272 units/L (35-129) H 08/10/16 06:20 Total Creatine Kinase 63 units/L (30-135) 08/15/16 13:36 CK-MB (CK-2) 3.8 ng/mL (0.0-4.0) 08/15/16 13:36 CK-MB (CK-2) Rel Index 6.0 (0-4) H 08/15/16 13:36 Troponin T 0.014 ng/mL (0.00-0.029) 08/15/16 13:36 Total Protein 7.0 g/dL (6.3-8.2) D 08/10/16 06:20 Albumin 3.4 g/dL (3.9-5) L 08/10/16 06:20 Albumin/Globulin Ratio 0.9 % 08/10/16 06:20
[2016-08-17] MEDS: HEPARIN SUB-Q SCH ×2 (09:33→21:40)
[2016-08-17] MEDS: PROTONIX PO SCH (09:33)
--- NOTE | 2016-08-17 10:18 | Consultation ---
History of Present Illness Consult date: 08/17/16 Requesting physician: STANTON BOWEN Reason for Consult: stroke/PFO Chief complaint: confusion, memory difficulties, off balance History of present illness: 55 YO F reported Hx HTN, DM2, CKD, and 2 prior strokes May 2015 w/ residual L hemiparesis (not placed on blood thinners) and summer 2015 w/ R sided weakness ( placed on ASA) who p/w AMS-confusionand difficulty w/ balance on 08/05. She was found on MRI Brain to have multiple b/l anterior & posterior circulation infarcts suggestive of central/cardioembolic etiology. TTE neg but OLAF 12/30/15 revealed PFO. She notes that her stroke onset has never been in setting of exertional activity. Her sx are constant. There are no clear aggravating, relieving or temporal factors. Severity was enough to cause inability to effectively ambulate. Past History Past Medical History: diabetes, hypertension, renal failure Past Surgical History: appendectomy, hysterectomy Social history: , lives with family. denies: smoking, alcohol abuse Family history: diabetes, hypertension Medications and Allergies Allergies Allergy/AdvReac Type Severity Reaction Status Date / Time morphine AdvReac Vomiting Verified 07/28/14 17:26 Home Medications Medication Instructions Recorded Confirmed Last Taken Type AtorvaSTATin [Lipitor] 40 mg PO DAILY 04/06/16 08/09/16 Unknown History Clopidogrel [Plavix] 75 mg PO QDAY tablet 05/08/16 08/09/16 Unknown Rx Bisacodyl [Dulcolax suppos] 10 mg AL QDAY PRN #30 supp.rect 08/09/16 08/09/16 Unknown Rx Dextrose 50% in Water [D50w (25Gm)] 50 ml IV PRN PRN #30 syringe 08/09/16 Unknown Rx Enoxaparin [Lovenox] 40 mg SUB-Q QDAY@1000 syringe 08/09/16 08/09/16 Unknown Rx Glimepiride [Amaryl] 2 mg PO QAMDIAB tablet 08/09/16 08/09/16 Unknown Rx Insulin Detemir [Levemir] 25 units SUB-Q BID units 08/09/16 08/09/16 Unknown Rx Levofloxacin [Levaquin TAB] 750 mg PO Q24HR #7 tablet 08/09/16 08/09/16 Unknown Rx Magnesium Hydroxide [Milk of 30 ml PO Q4H PRN #30 oral.liqd 08/09/16 08/09/16 Unknown Rx Magnesia] Metoprolol [Lopressor TAB] 50 mg PO BID #60 tablet 08/09/16 08/09/16 Unknown Rx Nortriptyline [Pamelor] 50 mg PO QDAY #30 capsule 08/09/16 08/09/16 Unknown Rx Pantoprazole [Protonix TAB] 40 mg PO DAILY tablet 08/09/16 08/09/16 Unknown Rx Sucralfate [Carafate] 1 gm PO HS oral.liqd 08/09/16 08/09/16 Unknown Rx cloNIDine [Catapres] 0.2 mg PO TID #30 tablet 08/09/16 08/09/16 Unknown Rx hydrALAZINE [Apresoline TAB] 25 mg PO Q8HR tablet 08/09/16 08/09/16 Unknown Rx Active Meds: Active Medications Acetaminophen (Tylenol) 650 mg PO Q4H PRN PRN Reason: Pain MILD(1-3)/Fever >100.5/GARCIA Last Admin: 08/16/16 12:34 Dose: 650 mg Atorvastatin Calcium (Lipitor) 40 mg PO QHS [facility] Last Admin: 08/16/16 22:03 Dose: 40 mg Bisacodyl (Dulcolax) 10 mg AL QDAY PRN PRN Reason: Constipation unrelieved by MOM Clonidine HCl (Catapres) 0.1 mg PO Q12HR [facility] Last Admin: 08/16/16 22:04 Dose: 0.1 mg Clopidogrel Bisulfate (Plavix) 75 mg PO QDAY [facility] Last Admin: 08/17/16 08:12 Dose: 75 mg Dextrose (D50w (25gm)) 50 ml IV PRN PRN PRN Reason: Hypoglycemia Docusate Sodium (Colace) 100 mg PO BID [facility] Last Admin: 08/17/16 08:12 Dose: 100 mg Heparin Sodium (Porcine) (Heparin) 5,000 unit SUB-Q Q12HR [facility] Last Admin: 08/17/16 09:33 Dose: 5,000 unit Hydralazine HCl (Apresoline) 10 mg PO Q8HR [facility] Last Admin: 08/17/16 05:51 Dose: 10 mg Hydromorphone HCl (Dilaudid) 2 mg PO Q6H PRN PRN Reason: Pain , Severe (7-10) Last Admin: 08/16/16 22:25 Dose: 2 mg Sodium Chloride (Nacl 0.9% 1000 Ml) 1,000 mls @ 75 mls/hr IV DIRECT [facility] Last Admin: 08/16/16 19:02 Dose: 75 mls/hr Insulin Aspart (Novolog) 0 units SUB-Q ACHS [facility] PRN Reason: Protocol Last Admin: 08/17/16 08:14 Dose: 1 units Insulin Detemir (Levemir) 18 units SUB-Q BID [facility] Last Admin: 08/17/16 08:12 Dose: 18 units Metoclopramide HCl (Reglan) 5 mg PO AC PRN PRN Reason: Nausea Last Admin: 08/16/16 12:53 Dose: 5 mg Nortriptyline HCl (Pamelor) 50 mg PO QDAY [facility] Last Admin: 08/17/16 08:12 Dose: 50 mg Pantoprazole Sodium (Protonix) 40 mg PO DAILY [facility] Last Admin: 08/17/16 09:33 Dose: 40 mg Senna (Senokot) 8.6 mg PO QHS [facility] Last Admin: 08/16/16 22:03 Dose: 8.6 mg Sucralfate (Carafate) 1 gm PO HS [facility] Last Admin: 08/16/16 22:03 Dose: 1 gm Review of Systems All systems: negative Constitutional: fatigue, weakness Neurological: weakness, numbness, lack of coordination, aphasia, change in speech, change in mentation, confusion, memory loss, balance difficulties, gait dysfunction, motor disturbance Physical Examination - Vital Signs Vital Signs: Vital Signs Temp Pulse Resp BP Pulse Ox 98.1 F 87 18 102/62 100 08/09/16 18:00 08/09/16 18:00 08/09/16 18:00 08/09/16 18:00 08/09/16 18:00 - Constitutional General appearance: comfortable - EENT EENT: Present: ATNC, PERRL, mucous membranes moist, hearing intact, vision intact - Respiratory Respiratory: Present: chest non-tender, normal breath sounds, no respiratory distress - Cardiovascular Cardiovascular: Present: regular rate Extremities: Present: no peripheral edema bilatateraly, no clubbing, cyanosis, no inflammation, no ischemia or petechiae - Gastrointestinal Gastrointestinal: Present: normoactive bowel sounds, soft, non-distended - Integumentary Integumentary: Present: normal - Neurologic Cranial nerve examination: PERRL, EOMI, VFF, V1/V2/V3 grossly intact, tongue midline, intact, intact shoulder shrug, intact cough reflex, Intact Vestibulo- ocular r, intact corneal reflex, facial droop (on R mild) Speech examination: motor aphasia, other (dysarthria) Sensorimotor examination: pronator drift (b/l R > L), hemiparesis (R > L) Motor examination - right side: 4: biceps, triceps, wrist flexion, wrist extension, doctor of nursing practice, hip flexors, knee extensors, dorsiflexion, toe extension (EHL) , plantarflexion Motor examination - left side: 4: biceps, triceps, wrist flexion, wrist extension, doctor of nursing practice, hip flexors, knee extensors, dorsiflexion, toe extension (EHL) , plantarflexion Detailed sensory examination: light touch (decr on R), temperature (decr on R) Reflex and gait examination: Babinski's sign (on R) Reflexes: 0: ankle, 3+: bicep (on R), knee, tricep - Musculoskeletal Musculoskeletal: Present: no fluid collection, no pain, normal range of motion - Psychiatric Psychiatric: Present: mood/affect appropriate, cooperative Results - Laboratory Findings CBC and BMP: 08/17/16 06:05 08/17/16 06:05 Abnormal Lab Findings: Abnormal Labs 08/09/16 08/09/16 08/10/16 21:09 22:44 06:20 MCH 26 L RDW 17.2 H Plt Count [place] % (Auto) 9.9 H [place] # 1.0 H Sodium Potassium Chloride BUN Creatinine Glucose POC Glucose 69 L 127 H Alkaline Phosphatase CK-MB (CK-2) Rel Index Albumin 08/10/16 08/10/16 08/10/16 06:20 06:26 11:49 MCH RDW Plt Count [place] % (Auto) [place] # Sodium 136 L Potassium Chloride BUN 23 H Creatinine 1.7 H Glucose 147 H POC Glucose 157 H 206 H Alkaline Phosphatase 272 H CK-MB (CK-2) Rel Index Albumin 3.4 L 08/10/16 08/10/16 08/11/16 16:23 21:19 04:30 MCH RDW Plt Count [place] % (Auto) [place] # Sodium 134 L Potassium Chloride 94.7 L BUN 19 H Creatinine 1.3 H Glucose 237 H POC Glucose 144 H 285 H Alkaline Phosphatase CK-MB (CK-2) Rel Index Albumin 08/11/16 08/11/16 08/11/16 05:55 10:59 16:03 MCH RDW Plt Count [place] % (Auto) [place] # Sodium Potassium Chloride BUN Creatinine Glucose POC Glucose 224 H 186 H 198 H Alkaline Phosphatase CK-MB (CK-2) Rel Index Albumin 08/11/16 08/12/16 08/12/16 20:59 05:45 11:55 MCH RDW Plt Count [place] % (Auto) [place] # Sodium Potassium Chloride BUN Creatinine Glucose POC Glucose 219 H 214 H 212 H Alkaline Phosphatase CK-MB (CK-2) Rel Index Albumin 08/12/16 08/12/16 08/13/16 16:21 20:24 04:34 MCH RDW Plt Count [place] % (Auto) [place] # Sodium 135 L Potassium Chloride 94.7 L BUN Creatinine Glucose 221 H POC Glucose 193 H 294 H Alkaline Phosphatase CK-MB (CK-2) Rel Index Albumin 08/13/16 08/13/16 08/13/16 05:52 11:30 16:28 MCH RDW Plt Count [place] % (Auto) [place] # Sodium Potassium Chloride BUN Creatinine Glucose POC Glucose 241 H 182 H 148 H Alkaline Phosphatase CK-MB (CK-2) Rel Index Albumin 08/13/16 08/14/16 08/14/16 20:33 06:21 11:14 MCH RDW Plt Count [place] % (Auto) [place] # Sodium Potassium Chloride BUN Creatinine Glucose POC Glucose 258 H 212 H 188 H Alkaline Phosphatase CK-MB (CK-2) Rel Index Albumin 08/14/16 08/15/16 08/15/16 21:48 06:34 11:24 MCH RDW Plt Count [place] % (Auto) [place] # Sodium Potassium Chloride BUN Creatinine Glucose POC Glucose 161 H 169 H 226 H Alkaline Phosphatase CK-MB (CK-2) Rel Index Albumin 08/15/16 08/15/16 08/15/16 13:36 13:36 16:11 MCH RDW Plt Count [place] % (Auto) [place] # Sodium 135 L Potassium Chloride 95.0 L BUN 21 H Creatinine 1.4 H Glucose 241 H POC Glucose 203 H Alkaline Phosphatase CK-MB (CK-2) Rel Index 6.0 H Albumin 08/15/16 08/16/16 08/16/16 20:41 05:57 11:52 MCH RDW Plt Count [place] % (Auto) [place] # Sodium Potassium Chloride BUN Creatinine Glucose POC Glucose 161 H 162 H 247 H Alkaline Phosphatase CK-MB (CK-2) Rel Index Albumin 08/16/16 08/16/16 08/17/16 16:29 20:49 05:50 MCH RDW Plt Count [place] % (Auto) [place] # Sodium Potassium Chloride BUN Creatinine Glucose POC Glucose 221 H 225 H 184 H Alkaline Phosphatase CK-MB (CK-2) Rel Index Albumin 08/17/16 08/17/16 06:05 06:05 MCH 27 L RDW 16.8 H Plt Count 446 H [place] % (Auto) [place] # Sodium 136 L Potassium 3.5 L Chloride 96.5 L BUN Creatinine Glucose 167 H POC Glucose Alkaline Phosphatase CK-MB (CK-2) Rel Index Albumin Assessment and Plan 55 YO F Hx HTN, DM2, CKD, and 2 prior strokes May 2015 w/ residual L hemiparesis (reportedly not placed on blood thinners but no admission info @ [facility] ) and summer 2015 w/ R sided weakness (placed on ASA) who p/w AMS-confusion, memory diffciculty and difficulty w/ balance on 08/05 found on MRI Brain to have multiple b/l anterior & posterior circulation infarcts suggestive of central/ cardioembolic etiology. CDs neg. LDL 63. TTE neg but OLAF 12/30/15 revealed small PFO although no atrial septal aneurysm. She notes that her stroke onset has never been in setting of exertional activity. Clearly pt has had cardioembolic stroke but not clearly d/t PFO as she also has LAD ? pAFib. She previously was on AC but developed anemia/blood loss and not compliant w/ INR checks. Plan and Recommendation: 1. No indication for pharmacologic thrombolysis with IV tPA or mechanical thrombectomy due to last known normal > 6 hrs from presentation. Current NIHSS 6 2. Telemetry bed w/ Q4 hour neuro checks 3. 30 day ambulatory Tele monitor ? pAFib 4. Autoregulate SBP to goal 120-160 as pt is outside permissive HTN window. 5. Secondary stroke prevention: ASA 325mg Daily and Plavix 75mg QDay & upgrade to full dose statin therapy (Crestor 20mg or 40mg OR Lipitor 40mg or 80mg Daily OR Zocor 40mg QDay) for goal LDL < 70. No firm indication at this point for therapeutic anticoagulation as pt has not had AFib captured on telemetry monitoring. I would not conclusively recommend PFO closure @ this time as this is not clearly the mechanism for pt's strokes 6. b/l UE/LE NIVS to r/o DVT. Presence of DVT would then indicate need for therapeutic AC instead of DAPT 7. F/E/N: isotonic IVF prn, prn replete, bedside speech/swallow eval prior to PO intake. 8. DVT Prophylaxis 9. Stroke education, PT/OT/Speech Therapy consults, CM evaluation 10. Outpt neuro follow up will be necessary as well. 11. I am not excellence consultant this weekend but return 8 AM on 08/20
--- NOTE | 2016-08-17 11:21 | Progress Note ---
Assessment and Plan Cardiomyopathy, LVEF 40-45% Normal MPI 12/2015 Recurrent CVAs s/p OLAF showing evidence of PFO s/p LINQ loop recorder implanted at [place] 04/18/2016 Systemic Hypertension Type II DM Hyperlipidemia Recommendations: Loop recorder interrogation today (discussed with [employer] rep) Continue asa and plavix Start high intensity statins Subjective Date of service: 08/17/16 Principal diagnosis: bilateral acute infarctions Interval history: Patient is doing well She denies chest pain or shortness of breath Objective Vital Signs Temp Pulse Pulse Pulse Resp BP BP 08/17/16 07:22 98.4 F 96 H 18 122/78 08/17/16 05:51 97 H 155/97 08/16/16 22:04 110 H 146/74 08/16/16 19:00 97.5 F L 108 H 18 143/72 08/16/16 16:30 98.2 F 107 H 18 180/100 08/16/16 14:13 100 H 198/104 Pulse Ox 08/17/16 07:22 100 08/17/16 05:51 08/16/16 22:04 08/16/16 19:00 99 08/16/16 16:30 100 08/16/16 14:13 - Physical Examination HEENT: Positive: PERRL Neck: Positive: trachea midline Cardiac: Positive: Reg Rate and Rhythm Lungs: Positive: Normal Exam - Labs and Meds CBC 08/17/16 Range/Units 06:05 WBC 9.6 (4.5-11.0) K/mm3 RBC 4.08 (3.65-5.03) M/mm3 Hgb 10.8 (10.1-14.3) gm/dl Hct 33.4 (30.3-42.9) % Plt Count 446 H (140-440) K/mm3 Comprehensive Metabolic Panel 08/17/16 Range/Units 06:05 Sodium 136 L (137-145) mmol/L Potassium 3.5 L (3.6-5.0) mmol/L Chloride 96.5 L (98-107) mmol/L Carbon Dioxide 26 (22-30) mmol/L BUN 16 (7-17) mg/dL Creatinine 0.9 (0.7-1.2) mg/dL Glucose 167 H (65-100) mg/dL Calcium 9.3 (8.4-10.2) mg/dL
[2016-08-17] MEDS: ASPIRIN PO SCH (12:45)
[2016-08-17] MEDS: REGLAN PO PRN (12:45)
[2016-08-17] MEDS: CATAPRES PO SCH ×2 (12:45→21:34)
[2016-08-17] MEDS: TYLENOL PO PRN (12:46)
--- NOTE | 2016-08-17 14:01 | Progress Note ---
Assessment and Plan 55 y.o. 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 - gait dysfunction- ambulating >600 feet - dysphagia- tolerating mechanical soft diet - HTN- continues to fluctuate - DM- SSI, ADA diet; increase levemir to 20U BID; only eating snacks; not eating meals well; dietitian consulted - Chronic abdominal pain- carafate, protonix; changed reglan to scheduled before meals to improve nausea and vomiting; follow for response - DVT px- lovenox - intermittent chest pain- history of PFO on ECHO 12/2015; cardiology following; neurology consulted as recommended - Patient Problems (1) Acute ischemic stroke Current Visit: No Status: Acute (2) Abnormality of gait following cerebrovascular accident (CVA) Current Visit: No Status: Acute (3) Dysphagia as late effect of cerebrovascular accident (CVA) Current Visit: No Status: Acute (4) Diabetes Current Visit: Yes Status: Chronic Qualifiers: 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 type: type 2 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 complication status: with hyperglycemia 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 complication detail: D Diabetic retinopathy severity: D Proliferative retinopathy type: P 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 macular edema: D 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 termite exterminator helper insulin use: with termite exterminator helper use Laterality: L Chronic kidney disease stage: C Qualified Code(s): E11.65 - Type 2 diabetes mellitus with hyperglycemia; Z79.4 - termite renewal inspector (current) use of insulin (5) Hypertension Current Visit: Yes Status: Chronic Qualifiers: Hypertension type: essential hypertension Qualified Code(s): I10 - Essential (primary) hypertension (6) Diabetic gastroparesis Current Visit: Yes Status: Acute Subjective Date of service: 08/17/16 Principal diagnosis: bilateral acute infarctions Interval history: Pt seen in room this AM, F/U IPR course, s/p bilateral acute infarctions in the left cerebellar tonsil, lateral left cerebellum, right parieto-occipital region , right thalamus, left basal ganglia, left frontal lobe. Pt denied any pain when seen this AM in room, sitting on edge of bed; later had episode of vomiting and associated chest pain/abdominal pain while in Vascular lab completing doppler studies Objective - Constitutional Vitals: Vital Signs - 12hr 08/17/16 08/17/16 08/17/16 05:51 07:22 12:45 Temperature 98.4 F Pulse Rate 97 H 106 H Pulse Rate [ 96 H Left Brachial] Respiratory 18 Rate Blood Pressure 155/97 187/97 Blood Pressure 122/78 [Left Arm] O2 Sat by Pulse 100 Oximetry General appearance: Present: no acute distress, obese - EENT Eyes: EOM intact ENT: hearing intact - Neck Neck: supple, normal ROM - Respiratory Respiratory effort: normal Respiratory: bilateral: CTA - Cardiovascular Rhythm: regular Heart Sounds: Present: S1 & S2 Extremities: No edema - Gastrointestinal General gastrointestinal: Present: soft, tender, normal bowel sounds - Integumentary Integumentary: clear - Musculoskeletal Musculoskeletal: strength equal bilaterally - Neurologic Neurologic: CNII-XII intact, moves all extremities - Psychiatric Psychiatric: cooperative (flat affect) - Allied health notes Allied health notes reviewed: nursing (Tonia to supervision for ADLs) - Labs CBC & Chem 7: 08/17/16 06:05 08/17/16 06:05 Labs: Abnormal lab results 08/16/16 08/16/16 08/17/16 Range/Units 16:29 20:49 05:50 MCH (28-32) pg RDW (13.2-15.2) % Plt Count (140-440) K/mm3 Sodium (137-145) mmol/L Potassium (3.6-5.0) mmol/L Chloride (98-107) mmol/L Glucose (65-100) mg/dL POC Glucose 221 H 225 H 184 H (70-105) 08/17/16 08/17/16 08/17/16 Range/Units 06:05 06:05 12:31 MCH 27 L (28-32) pg RDW 16.8 H (13.2-15.2) % Plt Count 446 H (140-440) K/mm3 Sodium 136 L (137-145) mmol/L Potassium 3.5 L (3.6-5.0) mmol/L Chloride 96.5 L (98-107) mmol/L Glucose 167 H (65-100) mg/dL POC Glucose 261 H (70-105)
[2016-08-17] MEDS: DILAUDID PO PRN ×2 (15:06→21:31)
[2016-08-17] MEDS: REGLAN PO SCH (17:41)
[2016-08-17] MEDS: SENOKOT PO SCH (21:34)
[2016-08-17] MEDS: CARAFATE PO SCH (21:35)
[2016-08-18] MEDS: APRESOLINE PO SCH ×3 (06:02→21:45)
[2016-08-18] MEDS: REGLAN PO SCH ×3 (07:46→16:15)
[2016-08-18] MEDS: COLACE PO SCH ×2 (08:40→21:44)
[2016-08-18] MEDS: PAMELOR PO SCH (08:40)
[2016-08-18] MEDS: PROTONIX PO SCH ×2 (08:41→10:40)
[2016-08-18] MEDS: ASPIRIN PO SCH (08:41)
[2016-08-18] MEDS: PLAVIX PO SCH (08:41)
[2016-08-18] MEDS: LEVEMIR SUB-Q SCH ×2 (08:42→21:46)
[2016-08-18] MEDS: NOVOLOG SUB-Q SCH ×4 (08:42→21:51)
[2016-08-18] MEDS: HEPARIN SUB-Q SCH ×3 (08:42→21:46)
[2016-08-18] MEDS: CATAPRES PO SCH ×2 (10:42→21:45)
--- NOTE | 2016-08-18 11:09 | Progress Note ---
Subjective Date of service: 08/18/16 Principal diagnosis: bilateral acute infarctions Interval history: Loop recorder interrogated - no evidence of afib Assessment and Plan Cardiomyopathy, LVEF 40-45% Normal MPI 12/2015 Recurrent CVAs s/p OLAF showing evidence of PFO s/p LINQ loop recorder implanted at [place] 04/18/2016 Systemic Hypertension Type II DM Hyperlipidemia Recommendations: Loop recorder interrogation negative Continue asa and plavix, statin Objective Vital Signs Temp Pulse Pulse Pulse Resp Resp BP 08/18/16 08:00 92 H 20 08/18/16 06:02 90 130/78 08/17/16 23:40 90 18 08/17/16 22:31 20 08/17/16 22:00 18 08/17/16 21:35 102 H 187/106 08/17/16 21:34 102 H 187/106 08/17/16 21:31 20 08/17/16 20:00 97.6 F 102 H 20 08/17/16 16:30 97.1 F L 96 H 18 08/17/16 12:45 106 H 187/97 BP Pulse Ox 08/18/16 08:00 125/71 100 08/18/16 06:02 08/17/16 23:40 100 08/17/16 22:31 08/17/16 22:00 08/17/16 21:35 08/17/16 21:34 08/17/16 21:31 08/17/16 20:00 187/106 100 08/17/16 16:30 168/86 98 08/17/16 12:45 - Physical Examination HEENT: Positive: PERRL Neck: Positive: trachea midline Cardiac: Positive: Reg Rate and Rhythm, S1/S2 Lungs: Positive: Normal Exam
--- NOTE | 2016-08-18 15:04 | Progress Note ---
Assessment and Plan Assessment and plan: 1. 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 ? Chest pain/abdominal pain Seems to have a long history of similar symptoms EKG, cardiac enzymes, electrolytes checked and within normal limits Cardiology consulted and records from their office obtained - OLAF revealed PFO 3. DM On long acting insulin and SSI based on BS BS>200, so Levemir dose increased 08/16 Monitoring 4. CVA Bilateral infarcts On Plavix and Lipitor In inpatient rehabilitation unit (PT/ST/OT) Found to have PFO - outpatient f/u with cardiology for repair recommended Neurology consulted for recommendation regarding anticoagulation 5. DVT prophylaxis Heparin subcutaneous History Interval history: doing well, no complaints Hospitalist Physical - Constitutional Vitals: Temp Pulse Resp BP Pulse Ox 97.6 F 93 H 20 102/56 100 08/17/16 20:00 08/18/16 14:48 08/18/16 08:00 08/18/16 14:48 08/18/16 08:00 General appearance: Present: no acute distress, obese - EENT Eyes: Present: PERRL, EOM intact - Neck Neck: Present: supple, normal ROM. Absent: masses or JVD - Respiratory Respiratory effort: normal Respiratory: bilateral: CTA, negative: rhonchi, wheezing - Cardiovascular Rhythm: regular Heart Sounds: Present: S1 & S2. Absent: systolic murmur - Extremities Extremities: no ischemia - Abdominal General gastrointestinal: soft, non-tender, non-distended, normal bowel sounds - Neurologic Neurologic: no gait normal Results - Labs CBC & Chem 7: 08/17/16 06:05 08/17/16 06:05 Labs: Laboratory Last Values WBC 9.6 K/mm3 (4.5-11.0) 08/17/16 06:05 RBC 4.08 M/mm3 (3.65-5.03) 08/17/16 06:05 Hgb 10.8 gm/dl (10.1-14.3) 08/17/16 06:05 Hct 33.4 % (30.3-42.9) 08/17/16 06:05 MCV 82 fl (79-97) 08/17/16 06:05 MCH 27 pg (28-32) L 08/17/16 06:05 MCHC 32 % (30-34) 08/17/16 06:05 RDW 16.8 % (13.2-15.2) H 08/17/16 06:05 Plt Count 446 K/mm3 (140-440) H 08/17/16 06:05 Lymph % (Auto) 20.9 % (13.4-35.0) 08/10/16 06:20 [place] % (Auto) 9.9 % (0.0-7.3) H 08/10/16 06:20 Eos % (Auto) 2.8 % (0.0-4.3) 08/10/16 06:20 Baso % (Auto) 0.7 % (0.0-1.8) 08/10/16 06:20 Lymph # 2.1 K/mm3 (1.2-5.4) 08/10/16 06:20 [place] # 1.0 K/mm3 (0.0-0.8) H 08/10/16 06:20 Eos # 0.3 K/mm3 (0.0-0.4) 08/10/16 06:20 Baso # 0.1 K/mm3 (0.0-0.1) 08/10/16 06:20 Seg Neutrophils % 65.7 % (40.0-70.0) 08/10/16 06:20 Seg Neutrophils # 6.7 K/mm3 (1.8-7.7) 08/10/16 06:20 Sodium 136 mmol/L (137-145) L 08/17/16 06:05 Potassium 3.5 mmol/L (3.6-5.0) L 08/17/16 06:05 Chloride 96.5 mmol/L (98-107) L 08/17/16 06:05 Carbon Dioxide 26 mmol/L (22-30) 08/17/16 06:05 Anion Gap 17 mmol/L 08/17/16 06:05 BUN 16 mg/dL (7-17) 08/17/16 06:05 Creatinine 0.9 mg/dL (0.7-1.2) 08/17/16 06:05 Estimated GFR > 60 ml/min 08/17/16 06:05 BUN/Creatinine Ratio 17.77 % 08/17/16 06:05 Glucose 167 mg/dL (65-100) H 08/17/16 06:05 POC Glucose 162 (70-105) H 08/18/16 11:54 Calcium 9.3 mg/dL (8.4-10.2) 08/17/16 06:05 Magnesium 1.9 mg/dL (1.7-2.3) 08/15/16 13:36 Total Bilirubin 0.6 mg/dL (0.1-1.2) 08/10/16 06:20 AST 18 units/L (5-40) 08/10/16 06:20 ALT 25 units/L (7-56) 08/10/16 06:20 Alkaline Phosphatase 272 units/L (35-129) H 08/10/16 06:20 Total Creatine Kinase 63 units/L (30-135) 08/15/16 13:36 CK-MB (CK-2) 3.8 ng/mL (0.0-4.0) 08/15/16 13:36 CK-MB (CK-2) Rel Index 6.0 (0-4) H 08/15/16 13:36 Troponin T 0.014 ng/mL (0.00-0.029) 08/15/16 13:36 Total Protein 7.0 g/dL (6.3-8.2) D 08/10/16 06:20 Albumin 3.4 g/dL (3.9-5) L 08/10/16 06:20 Albumin/Globulin Ratio 0.9 % 08/10/16 06:20
[2016-08-18] MEDS: CARAFATE PO SCH (21:44)
[2016-08-18] MEDS: SENOKOT PO SCH (21:45)
[2016-08-18] MEDS: DILAUDID PO PRN (21:50)
[2016-08-19] MEDS: APRESOLINE PO SCH ×3 (06:43→22:09)
[2016-08-19] MEDS: REGLAN PO SCH ×3 (08:11→16:54)
[2016-08-19] MEDS: DILAUDID PO PRN ×2 (08:14→22:17)
[2016-08-19] MEDS: PAMELOR PO SCH (08:15)
[2016-08-19] MEDS: PLAVIX PO SCH (08:16)
[2016-08-19] MEDS: ASPIRIN PO SCH (08:16)
[2016-08-19] MEDS: PROTONIX PO SCH ×2 (08:17→10:36)
[2016-08-19] MEDS: NOVOLOG SUB-Q SCH ×4 (08:17→22:12)
[2016-08-19] MEDS: COLACE PO SCH ×2 (08:17→22:12)
[2016-08-19] MEDS: LEVEMIR SUB-Q SCH ×2 (08:18→22:08)
[2016-08-19] MEDS: HEPARIN SUB-Q SCH ×3 (08:18→22:10)
[2016-08-19] MEDS: CATAPRES PO SCH ×2 (10:35→22:12)
--- NOTE | 2016-08-19 15:39 | Progress Note ---
Assessment and Plan Assessment and plan: 1. 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 ? Chest pain/abdominal pain Seems to have a long history of similar symptoms EKG, cardiac enzymes, electrolytes checked and within normal limits Cardiology consulted and records from their office obtained - OLAF revealed PFO Chest pain appears after eating and laying down, it is most likely related with acid reflux; advised to sit up half an hour after each meal 3. DM On long acting insulin and SSI based on BS BS>200, so Levemir dose increased Continue to monitor 4. CVA Bilateral infarcts On Plavix and Lipitor In inpatient rehabilitation unit (PT/ST/OT) Found to have PFO - outpatient f/u with cardiology for repair recommended Neurology consulted and recommended against anticoagulation 5. DVT prophylaxis Heparin subcutaneous History Interval history: doing well, no complaints at the time of my examination; has intermittent chest pain mainly after eating and laying down Hospitalist Physical - Constitutional Vitals: Temp Pulse Resp BP Pulse Ox 98.3 F 104 H 18 102/64 99 08/19/16 08:00 08/19/16 10:35 08/19/16 08:00 08/19/16 10:35 08/19/16 08:00 General appearance: Present: no acute distress, obese - EENT Eyes: Present: PERRL, EOM intact. Absent: scleral icterus, conjunctival injection - Neck Neck: Present: supple, normal ROM. Absent: masses or JVD - Respiratory Respiratory effort: normal Respiratory: bilateral: CTA, negative: rales, rhonchi, wheezing - Cardiovascular Rhythm: regular Heart Sounds: Present: S1 & S2. Absent: systolic murmur - Extremities Extremities: no ischemia - Abdominal General gastrointestinal: soft, non-tender, non-distended, normal bowel sounds - Psychiatric Psychiatric: cooperative - Neurologic Neurologic: moves all extremities, no gait normal Results - Labs CBC & Chem 7: 08/17/16 06:05 08/17/16 06:05 Labs: Laboratory Last Values WBC 9.6 K/mm3 (4.5-11.0) 08/17/16 06:05 RBC 4.08 M/mm3 (3.65-5.03) 08/17/16 06:05 Hgb 10.8 gm/dl (10.1-14.3) 08/17/16 06:05 Hct 33.4 % (30.3-42.9) 08/17/16 06:05 MCV 82 fl (79-97) 08/17/16 06:05 MCH 27 pg (28-32) L 08/17/16 06:05 MCHC 32 % (30-34) 08/17/16 06:05 RDW 16.8 % (13.2-15.2) H 08/17/16 06:05 Plt Count 446 K/mm3 (140-440) H 08/17/16 06:05 Lymph % (Auto) 20.9 % (13.4-35.0) 08/10/16 06:20 [place] % (Auto) 9.9 % (0.0-7.3) H 08/10/16 06:20 Eos % (Auto) 2.8 % (0.0-4.3) 08/10/16 06:20 Baso % (Auto) 0.7 % (0.0-1.8) 08/10/16 06:20 Lymph # 2.1 K/mm3 (1.2-5.4) 08/10/16 06:20 [place] # 1.0 K/mm3 (0.0-0.8) H 08/10/16 06:20 Eos # 0.3 K/mm3 (0.0-0.4) 08/10/16 06:20 Baso # 0.1 K/mm3 (0.0-0.1) 08/10/16 06:20 Seg Neutrophils % 65.7 % (40.0-70.0) 08/10/16 06:20 Seg Neutrophils # 6.7 K/mm3 (1.8-7.7) 08/10/16 06:20 Sodium 136 mmol/L (137-145) L 08/17/16 06:05 Potassium 3.5 mmol/L (3.6-5.0) L 08/17/16 06:05 Chloride 96.5 mmol/L (98-107) L 08/17/16 06:05 Carbon Dioxide 26 mmol/L (22-30) 08/17/16 06:05 Anion Gap 17 mmol/L 08/17/16 06:05 BUN 16 mg/dL (7-17) 08/17/16 06:05 Creatinine 0.9 mg/dL (0.7-1.2) 08/17/16 06:05 Estimated GFR > 60 ml/min 08/17/16 06:05 BUN/Creatinine Ratio 17.77 % 08/17/16 06:05 Glucose 167 mg/dL (65-100) H 08/17/16 06:05 POC Glucose 151 (70-105) H 08/19/16 11:36 Calcium 9.3 mg/dL (8.4-10.2) 08/17/16 06:05 Magnesium 1.9 mg/dL (1.7-2.3) 08/15/16 13:36 Total Bilirubin 0.6 mg/dL (0.1-1.2) 08/10/16 06:20 AST 18 units/L (5-40) 08/10/16 06:20 ALT 25 units/L (7-56) 08/10/16 06:20 Alkaline Phosphatase 272 units/L (35-129) H 08/10/16 06:20 Total Creatine Kinase 63 units/L (30-135) 08/15/16 13:36 CK-MB (CK-2) 3.8 ng/mL (0.0-4.0) 08/15/16 13:36 CK-MB (CK-2) Rel Index 6.0 (0-4) H 08/15/16 13:36 Troponin T 0.014 ng/mL (0.00-0.029) 08/15/16 13:36 Total Protein 7.0 g/dL (6.3-8.2) D 08/10/16 06:20 Albumin 3.4 g/dL (3.9-5) L 08/10/16 06:20 Albumin/Globulin Ratio 0.9 % 08/10/16 06:20
--- NOTE | 2016-08-19 17:33 | Progress Note ---
Subjective Date of service: 08/19/16 Principal diagnosis: bilateral acute infarctions Interval history: No adverse overnight issues. 55 y.o. female bilateral acute infarctions in the left cerebellar tonsil, lateral left cerebellum, right parieto-occipital region, right thalamus, left basal ganglia, left frontal lobe - s/p CVA- Plavix, ASA, statin; appreciate Neurology input; - gait dysfunction- ambulating >600 feet - dysphagia- tolerating mechanical soft diet - HTN- continues to fluctuate. Clonididne and Hydralazine per Hospitalist - DM- SSI, ADA diet; increase levemir to 20U BID; only eating snacks; not eating meals well; dietitian consulted - Chronic abdominal pain- carafate, protonix; changed reglan to scheduled before meals to improve nausea and vomiting; follow for response - DVT px- lovenox - intermittent chest pain- history of PFO on ECHO 12/2015; Per Cardiology: Loop recorder interrogation negative. Continue asa and plavix, statin Per neurology: would not conclusively recommend PFO closure @ this time as this is not clearly the mechanism for pt's strokes Objective - Constitutional Vitals: Vital Signs - 12hr 08/19/16 08/19/16 08/19/16 06:43 08:00 10:35 Temperature 98.3 F Pulse Rate 112 H 104 H Pulse Rate [ 104 H Left Brachial] Respiratory 18 Rate Blood Pressure 203/105 102/64 Blood Pressure 102/64 [Left Arm] O2 Sat by Pulse 99 Oximetry 08/19/16 08/19/16 14:00 16:00 Temperature 97.7 F Pulse Rate 90 Pulse Rate [ 89 Left Brachial] Respiratory 20 Rate Blood Pressure 108/64 Blood Pressure 137/87 [Left Arm] O2 Sat by Pulse 100 Oximetry General appearance: no acute distress, well-nourished - EENT Eyes: EOM intact ENT: hearing intact - Neck Neck: supple - Respiratory Respiratory effort: normal - Breasts Breasts: Present: deferred - Cardiovascular Heart Sounds: Present: S1 & S2 Extremities: No edema - Gastrointestinal General gastrointestinal: soft, tender - Integumentary Integumentary: Present: warm, dry - Musculoskeletal Musculoskeletal: Present: strength equal bilaterally - Neurologic Neurologic: CNII-XII intact - Psychiatric Psychiatric: appropriate mood/affect - Allied health notes FIMS assessment as documented by PT/OT/ST: Grooming Patient cleans teeth/dentures: Yes Patient phan/brushes hair: Yes Patient washes, rinses and Yes dries face: Patient washes, rinses and Yes dries hands: Patient shaves: No Patient applies make-up: No Patient performs (no make-up/ 4/4 (100%) shaving): Grooming FIM Score 6. Modified [place] (Needs equipment/ device . Extra time.) Toileting Toileting Device Commode over Toilet Patient able to: Adjust clothes before,Clean self,Adjust clothes after Patient able to perform: 3/3 (100%) Toileting FIM Score 6. Modified [place] (Needs equip. or prosth ./orth.) Social interaction/Memory/Problem solving Social Interaction FIM Score 5. Supervision (Needs supv. <10%. Needs encouragement to participate.) Memory FIM Score 6. Modified [place](Mild difficulty remembering people/routines.) Problem Solving FIM Score 5. Supervision (Needs cueing <10% to solve routine problems.) Transfers Mode of Locomotion: Walking Bed/Chair/Wheelchair Transfers 5. Supervision (Needs supv. or set-up for FIM Score sliding board, foot rests.) Toilet Transfers FIM Score 5. Supervision (Needs supervision or cueing.) Patient transferred to: Shower Shower Transfers FIM Score 4. Minimal Assistance (Patient = 75% or more. Needs touching.) Locomotion- Stairs Device used on Stairs Handrail/s Number of Stairs Ascended/ 20 Descended Patient used handrail/support: Yes: Single rail used to simulate home setting. Stairs FIM Score 5. Supervision (12-14 stairs w/ supv. 4-6 stairs independently.) Locomotion- walk/wheelchair Most Frequent Mode of Wheelchair Locomotion: Ambulation Distance 680 Walking FIM Score 5. Supervision (Minimum 150 ft. supv./cues or 50 ft. independently.) Wheelchair Propulsion Distance 600 Wheelchair FIM Score 6. Modified [place] (Wheels a minimum of 150 ft.) Eating Eating FIM Score 6. Modified [place] (Special consistency or uses device.) Dressing-Upper body Patient retrieves clothing Yes items: Patient applies/removes UE No: n/a prosthesis or orthosis: Upper Body Dressing FIM Score 6. Modified [place] (Needs equipment, velcro or pros./orth.) Dressing-lower body Patient retrieves clothing Yes items: Patient applies/removes LE No: n/a prosthesis or orthosis: Lower Body Dressing FIM Score 6. Modified [place] (Needs equipment, velcro or pros./orth.) - Labs CBC & Chem 7: 08/17/16 06:05 08/17/16 06:05 Labs: Laboratory Results - last 72 hr 08/16/16 08/17/16 08/17/16 20:49 05:50 06:05 WBC 9.6 RBC 4.08 Hgb 10.8 Hct 33.4 MCV 82 MCH 27 L MCHC 32 RDW 16.8 H Plt Count 446 H Sodium Potassium Chloride Carbon Dioxide Anion Gap BUN Creatinine Estimated GFR BUN/Creatinine Ratio Glucose POC Glucose 225 H 184 H Calcium 08/17/16 08/17/16 08/17/16 06:05 12:31 21:18 WBC RBC Hgb Hct MCV MCH MCHC RDW Plt Count Sodium 136 L Potassium 3.5 L Chloride 96.5 L Carbon Dioxide 26 Anion Gap 17 BUN 16 Creatinine 0.9 Estimated GFR > 60 BUN/Creatinine Ratio 17.77 Glucose 167 H POC Glucose 261 H 145 H Calcium 9.3 08/18/16 08/18/16 08/18/16 05:53 11:54 16:19 WBC RBC Hgb Hct MCV MCH MCHC RDW Plt Count Sodium Potassium Chloride Carbon Dioxide Anion Gap BUN Creatinine Estimated GFR BUN/Creatinine Ratio Glucose POC Glucose 106 H 162 H 76 Calcium 08/18/16 08/19/16 08/19/16 21:17 06:40 11:36 WBC RBC Hgb Hct MCV MCH MCHC RDW Plt Count Sodium Potassium Chloride Carbon Dioxide Anion Gap BUN Creatinine Estimated GFR BUN/Creatinine Ratio Glucose POC Glucose 154 H 213 H 151 H Calcium 08/19/16 16:39 WBC RBC Hgb Hct MCV MCH MCHC RDW Plt Count Sodium Potassium Chloride Carbon Dioxide Anion Gap BUN Creatinine Estimated GFR BUN/Creatinine Ratio Glucose POC Glucose 166 H Calcium Assessment and Plan - Patient Problems (1) Diabetic gastroparesis Current Visit: Yes Status: Acute (2) Diabetes Current Visit: Yes Status: Chronic Qualifiers: 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 type: type 2 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 complication status: with hyperglycemia 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 complication detail: D Diabetic retinopathy severity: D Proliferative retinopathy type: P 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 macular edema: D 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 owner operator insulin use: with owner operator use Laterality: L Chronic kidney disease stage: C Qualified Code(s): E11.65 - Type 2 diabetes mellitus with hyperglycemia; Z79.4 - [facility] (current) use of insulin (3) Hypertension Current Visit: Yes Status: Chronic Qualifiers: Hypertension type: essential hypertension Qualified Code(s): I10 - Essential (primary) hypertension (4) [place] (acute kidney injury) Current Visit: No Status: Acute (5) Abdominal pain in female patient Current Visit: No Status: Acute (6) Abnormality of gait following cerebrovascular accident (CVA) Current Visit: No Status: Acute (7) Accelerated essential hypertension Current Visit: No Status: Acute (8) Acute ischemic stroke Current Visit: No Status: Acute (9) Acute on chronic renal failure Current Visit: No Status: Acute (10) DVT prophylaxis Current Visit: No Status: Acute (11) Hypertension, uncontrolled Current Visit: No Status: Acute (12) Neuropathic pain Current Visit: No Status: Acute (13) PFO (patent foramen ovale) Current Visit: No Status: Acute (14) Stroke Current Visit: No Status: Acute Qualifiers: CVA mechanism: unspecified Precerebral and cerebral artery: P Laterality of affected vessel: L Qualified Code(s): I63.9 - Cerebral infarction, unspecified (15) Depressive disorder Current Visit: No Status: Chronic (16) Hyperlipidemia Current Visit: No Status: Chronic Qualifiers: Hyperlipidemia type: H (17) Obesity Current Visit: No Status: Chronic Qualifiers: Obesity type: O Obesity severity: O
[2016-08-19] MEDS: SENOKOT PO SCH (22:08)
[2016-08-19] MEDS: CARAFATE PO SCH (22:08)
[2016-08-20 05:59] LABS: Anion Gap 15 mmol/L; Blood Urea Nitrogen 10 mg/dL (7-17); Calcium 8.9 mg/dL (8.4-10.2); Carbon Dioxide 26 mmol/L (22-30); Chloride 102.1 mmol/L (98-107); Glucose 120 mg/dL (65-100); Potassium 3.2 mmol/L (3.6-5.0); Sodium 140 mmol/L (137-145)
[2016-08-20] MEDS: APRESOLINE PO SCH ×3 (06:32→21:58)
--- NOTE | 2016-08-20 07:29 | Vascular Lab Report ---
LOWER EXTREMITY VENOUS DUPLEX: REASON FOR EXAM: Swelling of the lower extremities. COMMENTS ON THE RIGHT: All veins visualized are freely compressible without evidence of internal echogenicity. Flow is spontaneous and phasic throughout. COMMENTS ON THE LEFT: All veins visualized are freely compressible without evidence of internal echogenicity. Flow is spontaneous and phasic throughout. IMPRESSION: No evidence of acute or chronic deep venous thrombosis in either lower extremity.
--- NOTE | 2016-08-20 07:33 | Vascular Lab Report ---
UPPER EXTREMITY VENOUS DUPLEX: REASON FOR EXAM: Edema COMMENTS ON THE RIGHT: All arm veins visualized are freely compressible without evidence of internal echogenicity. The subclavian and internal jugular veins are free of thrombus. Flow is spontaneous and phasic throughout. COMMENTS ON THE LEFT: All arm veins visualized are freely compressible without evidence of internal echogenicity. The subclavian and internal jugular veins are free of thrombus. Flow is spontaneous and phasic throughout. IMPRESSION: No evidence of acute or chronic deep venous thrombosis in the upper extremities.
[2016-08-20] MEDS: REGLAN PO SCH ×3 (08:00→16:59)
[2016-08-20] MEDS: ASPIRIN PO SCH (08:19)
[2016-08-20] MEDS: PLAVIX PO SCH (08:20)
[2016-08-20] MEDS: PAMELOR PO SCH (08:20)
[2016-08-20] MEDS: COLACE PO SCH ×2 (08:21→21:58)
[2016-08-20] MEDS: NOVOLOG SUB-Q SCH ×4 (08:21→22:41)
[2016-08-20] MEDS: PROTONIX PO SCH ×2 (08:21→10:27)
[2016-08-20] MEDS: HEPARIN SUB-Q SCH ×3 (08:22→22:00)
[2016-08-20] MEDS: LEVEMIR SUB-Q SCH ×2 (08:22→22:01)
[2016-08-20] MEDS: CATAPRES PO SCH ×2 (10:26→22:26)
[2016-08-20] MEDS ORDERED: K-DUR PO ONE (13:03)
--- NOTE | 2016-08-20 13:04 | Progress Note ---
Assessment and Plan Assessment and plan: Consulted for blood pressure management: 1. 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 ? Chest pain/abdominal pain Seems to have a long history of similar symptoms EKG, cardiac enzymes, electrolytes checked and within normal limits Cardiology consulted and records from their office obtained - OLAF revealed PFO Chest pain appears after eating and laying down, it is most likely related with acid reflux; advised to sit up half an hour after each meal 3. DM On long acting insulin and SSI based on BS BS>200, so Levemir dose increased Continue to monitor 4. CVA Bilateral infarcts On Plavix and Lipitor In inpatient rehabilitation unit (PT/ST/OT) Found to have PFO - outpatient f/u with cardiology for repair recommended Neurology consulted and recommended against anticoagulation 5. DVT prophylaxis Heparin subcutaneous Discussed with patient to find out the reason why she is not on GARTH inhibitor/ ARB or beta autumn given her comorbidities. Patient does not know why her primary care provider Dr. Suzanne Mix has on this BP medication regimen. She denies any problems with other blood pressure medications that she can think of. I would prefer to Dr. Mix would not change her home medication. I reached out to Dr. Suzanne Mix, but they are at lunch. Will sign off, would recommend patient see Cardiology for PFO and optimal bp management History Interval history: Consulted for blood pressure management: Patient seen and examined. Follow up on hypertension. Overnight uneventful. No cp, sob, n/v or severe headaches. Imaging, old records, testing, labs, nursing notes reviewed. Plan discussed with patient. Hospitalist Physical - Physical exam Narrative exam: GEN: WDWN, NAD, AWAKE, ALERT, ORIENTATED CVS: RRR, NORMAL S1S2 LUNGS/CHEST: CTA B, NORMAL CHEST EXPANSION B, GOOD AIR ENTRY B ABD: SOFT NTND, GBS, NO REBOUND OR GUARDING NEURO: CN 2-12 GROSSLY INTACT, NO new FOCAL DEFICITS PSY: CALM - Constitutional Vitals: Temp Pulse Resp BP Pulse Ox 96.9 F L 92 H 16 106/66 100 08/20/16 07:07 08/20/16 10:26 08/20/16 07:07 08/20/16 10:26 08/20/16 09:28 General appearance: Present: no acute distress, well-nourished Results - Labs CBC & Chem 7: 08/17/16 06:05 08/20/16 05:15 Labs: Laboratory Last Values WBC 9.6 K/mm3 (4.5-11.0) 08/17/16 06:05 RBC 4.08 M/mm3 (3.65-5.03) 08/17/16 06:05 Hgb 10.8 gm/dl (10.1-14.3) 08/17/16 06:05 Hct 33.4 % (30.3-42.9) 08/17/16 06:05 MCV 82 fl (79-97) 08/17/16 06:05 MCH 27 pg (28-32) L 08/17/16 06:05 MCHC 32 % (30-34) 08/17/16 06:05 RDW 16.8 % (13.2-15.2) H 08/17/16 06:05 Plt Count 446 K/mm3 (140-440) H 08/17/16 06:05 Lymph % (Auto) 20.9 % (13.4-35.0) 08/10/16 06:20 [place] % (Auto) 9.9 % (0.0-7.3) H 08/10/16 06:20 Eos % (Auto) 2.8 % (0.0-4.3) 08/10/16 06:20 Baso % (Auto) 0.7 % (0.0-1.8) 08/10/16 06:20 Lymph # 2.1 K/mm3 (1.2-5.4) 08/10/16 06:20 [place] # 1.0 K/mm3 (0.0-0.8) H 08/10/16 06:20 Eos # 0.3 K/mm3 (0.0-0.4) 08/10/16 06:20 Baso # 0.1 K/mm3 (0.0-0.1) 08/10/16 06:20 Seg Neutrophils % 65.7 % (40.0-70.0) 08/10/16 06:20 Seg Neutrophils # 6.7 K/mm3 (1.8-7.7) 08/10/16 06:20 Sodium 140 mmol/L (137-145) 08/20/16 05:15 Potassium 3.2 mmol/L (3.6-5.0) L 08/20/16 05:15 Chloride 102.1 mmol/L (98-107) 08/20/16 05:15 Carbon Dioxide 26 mmol/L (22-30) 08/20/16 05:15 Anion Gap 15 mmol/L 08/20/16 05:15 BUN 10 mg/dL (7-17) 08/20/16 05:15 Creatinine 1.0 mg/dL (0.7-1.2) 08/20/16 05:15 Estimated GFR > 60 ml/min 08/20/16 05:15 BUN/Creatinine Ratio 10.00 % 08/20/16 05:15 Glucose 120 mg/dL (65-100) H 08/20/16 05:15 POC Glucose 173 (70-105) H 08/20/16 12:00 Calcium 8.9 mg/dL (8.4-10.2) 08/20/16 05:15 Magnesium 1.9 mg/dL (1.7-2.3) 08/15/16 13:36 Total Bilirubin 0.6 mg/dL (0.1-1.2) 08/10/16 06:20 AST 18 units/L (5-40) 08/10/16 06:20 ALT 25 units/L (7-56) 08/10/16 06:20 Alkaline Phosphatase 272 units/L (35-129) H 08/10/16 06:20 Total Creatine Kinase 63 units/L (30-135) 08/15/16 13:36 CK-MB (CK-2) 3.8 ng/mL (0.0-4.0) 08/15/16 13:36 CK-MB (CK-2) Rel Index 6.0 (0-4) H 08/15/16 13:36 Troponin T 0.014 ng/mL (0.00-0.029) 08/15/16 13:36 Total Protein 7.0 g/dL (6.3-8.2) D 08/10/16 06:20 Albumin 3.4 g/dL (3.9-5) L 08/10/16 06:20 Albumin/Globulin Ratio 0.9 % 08/10/16 06:20
[2016-08-20] MEDS: DILAUDID PO PRN (13:31)
--- NOTE | 2016-08-20 14:36 | Progress Note ---
Subjective Date of service: 08/20/16 Principal diagnosis: bilateral acute infarctions Interval history: No adverse overnight issues. 55 y.o. female bilateral acute infarctions in the left cerebellar tonsil, lateral left cerebellum, right parieto-occipital region, right thalamus, left basal ganglia, left frontal lobe - s/p CVA- Plavix, ASA, statin; appreciate Neurology input; - gait dysfunction- ambulating >600 feet - dysphagia- tolerating mechanical soft diet - HTN- continues to fluctuate. Clonididne and Hydralazine per Hospitalist. Per Hospitalist: Discussed with patient to find out the reason why she is not on GARTH inhibitor/ARB or beta autumn given her comorbidities. Patient does not know why her primary care provider Dr. Suzanne Mix has on this BP medication regimen. She denies any problems with other blood pressure medications that she can think of. I would prefer to Dr. Mix would not change her home medication. I reached out to Dr. Suzanne Mix, but they are at lunch. - DM- SSI, ADA diet; increased levemir to 20U BID; only eating snacks; not eating meals well. - Chronic abdominal pain- carafate, protonix; changed reglan to scheduled before meals to improve nausea and vomiting; follow for response - DVT px- lovenox - intermittent chest pain- history of PFO on ECHO 12/2015; Per Cardiology: Loop recorder interrogation negative. Continue asa and plavix, statin Per neurology: would not conclusively recommend PFO closure @ this time as this is not clearly the mechanism for pt's strokes - Hypokalemia: KCl supplement. - D/C tomorrow. Objective - Exam Narrative Exam: General appearance: no acute distress, well-nourished - EENT Eyes: EOM intact ENT: hearing intact - Neck Neck: supple - Respiratory Respiratory effort: normal - Breasts Breasts: Present: deferred - Cardiovascular Heart Sounds: Present: S1 & S2 Extremities: No edema - Gastrointestinal General gastrointestinal: soft, tender - Integumentary Integumentary: Present: warm, dry - Musculoskeletal Musculoskeletal: Present: strength equal bilaterally - Neurologic Neurologic: CNII-XII intact - Psychiatric Psychiatric: appropriate mood/affect - Constitutional Vitals: Vital Signs - 12hr 04/03/17 04/03/17 04/03/17 06:32 07:07 09:28 Temperature 96.9 F L Pulse Rate 95 H Pulse Rate [ 92 H Left Brachial] Respiratory 16 Rate Blood Pressure 114/69 Blood Pressure 106/66 [Left Arm] O2 Sat by Pulse 100 100 Oximetry 08/20/16 10:26 Temperature Pulse Rate 92 H Pulse Rate [ Left Brachial] Respiratory Rate Blood Pressure 106/66 Blood Pressure [Left Arm] O2 Sat by Pulse Oximetry - Allied health notes FIMS assessment as documented by PT/OT/ST: Grooming Patient cleans teeth/dentures: Yes Patient phan/brushes hair: Yes Patient washes, rinses and Yes dries face: Patient washes, rinses and Yes dries hands: Patient shaves: No Patient applies make-up: No Patient performs (no make-up/ / (100%) shaving): Grooming FIM Score 6. Modified [place] (Needs equipment/ device . Extra time.) Toileting Toileting Device Commode over Toilet Patient able to: Adjust clothes before,Clean self,Adjust clothes after Patient able to perform: 3/3 (100%) Toileting FIM Score 6. Modified [place] (Needs equip. or prosth ./orth.) Social interaction/Memory/Problem solving Social Interaction FIM Score 6. Mod. [place] (Mostly appropriate. May need meds. No supv.) Memory FIM Score 5. Supervision (Needs cueing <10%, stressful/ unfamiliar situations.) Problem Solving FIM Score 5. Supervision (Needs cueing <10% to solve routine problems.) Transfers Mode of Locomotion: Walking Bed/Chair/Wheelchair Transfers 5. Supervision (Needs supv. or set-up for FIM Score sliding board, foot rests.) Toilet Transfers FIM Score 5. Supervision (Needs supervision or cueing.) Patient transferred to: Shower Shower Transfers FIM Score 5. Supervision (Needs supv. or set-up with device.) Locomotion- Stairs Device used on Stairs Handrail/s Number of Stairs Ascended/ 20 Descended Patient used handrail/support: Yes: Single rail used to simulate home setting. Stairs FIM Score 5. Supervision (12-14 stairs w/ supv. 4-6 stairs independently.) Locomotion- walk/wheelchair Most Frequent Mode of Wheelchair Locomotion: Ambulation Distance 680 Walking FIM Score 5. Supervision (Minimum 150 ft. supv./cues or 50 ft. independently.) Wheelchair Propulsion Distance 600 Wheelchair FIM Score 6. Modified [place] (Wheels a minimum of 150 ft.) Eating Eating FIM Score 6. Modified [place] (Special consistency or uses device.) Dressing-Upper body Patient retrieves clothing Yes items: Patient applies/removes UE No: n/a prosthesis or orthosis: Upper Body Dressing FIM Score 6. Modified [place] (Needs equipment, velcro or pros./orth.) Dressing-lower body Patient retrieves clothing Yes items: Patient applies/removes LE No: n/a prosthesis or orthosis: Lower Body Dressing FIM Score 6. Modified [place] (Needs equipment, velcro or pros./orth.) - Labs CBC & Chem 7: 08/17/16 06:05 08/20/16 05:15 Labs: Laboratory Results - last 72 hr 08/17/16 08/18/16 08/18/16 21:18 05:53 11:54 Sodium Potassium Chloride Carbon Dioxide Anion Gap BUN Creatinine Estimated GFR BUN/Creatinine Ratio Glucose POC Glucose 145 H 106 H 162 H Calcium 08/18/16 08/18/16 08/19/16 16:19 21:17 06:40 Sodium Potassium Chloride Carbon Dioxide Anion Gap BUN Creatinine Estimated GFR BUN/Creatinine Ratio Glucose POC Glucose 76 154 H 213 H Calcium 08/19/16 08/19/16 08/19/16 11:36 16:39 21:19 Sodium Potassium Chloride Carbon Dioxide Anion Gap BUN Creatinine Estimated GFR BUN/Creatinine Ratio Glucose POC Glucose 151 H 166 H 187 H Calcium 08/20/16 08/20/16 08/20/16 05:15 06:21 12:00 Sodium 140 Potassium 3.2 L Chloride 102.1 Carbon Dioxide 26 Anion Gap 15 BUN 10 Creatinine 1.0 Estimated GFR > 60 BUN/Creatinine Ratio 10.00 Glucose 120 H POC Glucose 125 H 173 H Calcium 8.9 Assessment and Plan - Patient Problems (1) Diabetic gastroparesis Current Visit: Yes Status: Acute (2) Diabetes Current Visit: Yes Status: Chronic Qualifiers: 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 type: type 2 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 complication status: with hyperglycemia 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 complication detail: D Diabetic retinopathy severity: D Proliferative retinopathy type: P 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 macular edema: D 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 Laterality: L Chronic kidney disease stage: C Qualified Code(s): E11.65 - Type 2 diabetes mellitus with hyperglycemia; Z79.4 - half-way (current) use of insulin (3) Hypertension Current Visit: Yes Status: Chronic Qualifiers: Hypertension type: essential hypertension Qualified Code(s): I10 - Essential (primary) hypertension (4) [place] (acute kidney injury) Current Visit: No Status: Acute (5) Abdominal pain in female patient Current Visit: No Status: Acute (6) Abnormality of gait following cerebrovascular accident (CVA) Current Visit: No Status: Acute (7) Accelerated essential hypertension Current Visit: No Status: Acute (8) Acute ischemic stroke Current Visit: No Status: Acute (9) Acute on chronic renal failure Current Visit: No Status: Acute (10) DVT prophylaxis Current Visit: No Status: Acute (11) Hypertension, uncontrolled Current Visit: No Status: Acute (12) Neuropathic pain Current Visit: No Status: Acute (13) PFO (patent foramen ovale) Current Visit: No Status: Acute (14) Stroke Current Visit: No Status: Acute Qualifiers: CVA mechanism: unspecified Precerebral and cerebral artery: P Laterality of affected vessel: L Qualified Code(s): I63.9 - Cerebral infarction, unspecified (15) Depressive disorder Current Visit: No Status: Chronic (16) Hyperlipidemia Current Visit: No Status: Chronic Qualifiers: Hyperlipidemia type: H (17) Obesity Current Visit: No Status: Chronic Qualifiers: Obesity type: O Obesity severity: O
[2016-08-20] MEDS ORDERED: MILK OF MAGNESIA PO PRN (15:16)
[2016-08-20] MEDS: CARAFATE PO SCH (21:57)
[2016-08-20] MEDS: SENOKOT PO SCH (21:59)
[2016-08-20] MEDS ORDERED: DESYREL PO ONE (22:25)
[2016-08-21] MEDS: APRESOLINE PO SCH ×4 (05:51→21:00)
[2016-08-21 08:29] LABS: Anion Gap 18 mmol/L; Blood Urea Nitrogen 12 mg/dL (7-17); Calcium 9.3 mg/dL (8.4-10.2); Carbon Dioxide 23 mmol/L (22-30); Chloride 99.6 mmol/L (98-107); Glucose 177 mg/dL (65-100); Potassium 3.2 mmol/L (3.6-5.0); Sodium 137 mmol/L (137-145)
[2016-08-21] MEDS: PAMELOR PO SCH (08:53)
[2016-08-21] MEDS: PLAVIX PO SCH (08:53)
[2016-08-21] MEDS: REGLAN PO SCH ×3 (08:53→16:28)
[2016-08-21] MEDS: ASPIRIN PO SCH (08:54)
[2016-08-21] MEDS: COLACE PO SCH ×2 (08:54→21:00)
[2016-08-21] MEDS: LEVEMIR SUB-Q SCH ×2 (09:01→21:03)
[2016-08-21] MEDS: PROTONIX PO SCH (09:01)
[2016-08-21] MEDS: HEPARIN SUB-Q SCH ×2 (09:01→21:01)
[2016-08-21] MEDS: CATAPRES PO SCH ×2 (09:06→16:29)
[2016-08-21] MEDS: NOVOLOG SUB-Q SCH ×4 (09:07→21:01)
[2016-08-21] MEDS: DILAUDID PO PRN (10:27)
[2016-08-21] MEDS ORDERED: K-DUR PO NR (11:00)
[2016-08-21] MEDS ORDERED: DILAUDID PO NR (13:00)
--- NOTE | 2016-08-21 13:30 | Discharge Summary ---
Providers - Providers Date of Admission: 08/09/16 17:24 Date of discharge: 08/22/16 Attending physician: STANTON BOWEN 08/09/16 18:00 Occupational Therapy Evaluate and Treat [CONS] Routine Comment: Reason For Exam: s/p CVA Physical Therapy Evaluation and Treat [CONS] Routine Comment: Reason For Exam: s/p CVA Speech Therapy Evaluation and Treat [CONS] Routine Reason For Exam: s/p CVA 08/12/16 09:17 Consult to Physician [CONS] Routine Consulting Provider: CARYN KURTZ Reason For Exam: Elevated Blood Pressure Place consult to:: Caryn Kurtz Notified:: Yes If yes, spoke with:: Dr. Kurtz Comment:: Will assess patient 08/16/16 13:29 Consult to Physician [CONS] Routine Consulting Provider: MYLES HEART Osman FONSECA Reason For Exam: atypical chest pain; pt of Dr. Earl Olivas consult to:: [facility] Notified:: SIDE GUIDER Phone number called:: Dr Bowen text SIDE GUIDER Was contact made?: Yes If yes, spoke with:: SIDE GUIDER Time called:: 15:00 Comment:: DR Miranda saw pt. 08/16/16 16:23 Consult to Physician [CONS] Routine Consulting Provider: LORE PICKARD Reason For Exam: multiple CVAs, h/o PFO Place consult to:: Nasreen Mullen Notified:: Message left on answering machine Phone number called:: [phone] If yes, spoke with:: Message left Time called:: 18:05 08/17/16 14:03 Consult to Dietitian/Nutrition [CONS] Routine Physician Instructions: Reason For Exam: food choices; not eating well Reason for Consult: Poor oral intake Primary care physician: BERTHA PARADA Hospitalization Reason for admission: Stroke Condition: Good Hospital course: History of Present Illness: 55 y.o. female admitted to [facility] secondary to acute onset of altered mental status. MRI Brain showed multiple areas of acute infarction in the left cerebellar tonsil, lateral left cerebellum, right parieto-occipital region, right thalamus, left basal ganglia, left frontal lobe. Acute care course complicated by acute on chronic renal failure, improved with IV Fluids; uncontrolled HTN; UTI, treated with IV Levaquin. Pt downgraded from regular consistency to pureed diet after bedside swallow evaluation. Hospital Course: On 08/09/16, she was admitted to the acute rehab unit for rehabilitative therapies. She participated in all therapies. Her upper abdominal pain was related to GERD per Hospitalist. Her pain was controlled with dilaudid. She remain on heparin for DVT prophylaxis and Plavix with ASA for her recent stroke. Cardiology was consulted. A OLAF showed a LVEF 40-45% and a PFO. Neurology didn't think that her stroke was directly from the PFO- so no conclusive recommendation for PFO closure. Loop recorder interrogated - no evidence of afib. Her DM was managed with SSI and Levemir. She is to follow up with her net developer. She was supplemented with KCl due to hypokalemia. She is to resume it at home. On 08/21/16, she had elevated BP and abdominal pain. Hospitalist did order an extra catapress. The pain was subsided with pain medicine. Today, she is feeling and her BP is much better now. She will be discharged to home. 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 Laterality: L Chronic kidney disease stage: C Qualified Code(s): E11.65 - Type 2 diabetes mellitus with hyperglycemia; Z79.4 - FDC (current) use of insulin (3) Hypertension Status: Chronic Qualifiers: Hypertension type: essential hypertension Qualified Code(s): I10 - Essential (primary) hypertension (4) [place] (acute kidney injury) Status: Acute (5) Abdominal pain in female patient Status: Acute (6) Abnormality of gait following cerebrovascular accident (CVA) Status: Acute (7) Accelerated essential hypertension Status: Acute (8) Acute ischemic stroke Status: Acute (9) Acute on chronic renal failure Status: Acute (10) DVT prophylaxis Status: Acute (11) Hypertension, uncontrolled Status: Acute (12) Neuropathic pain Status: Acute (13) PFO (patent foramen ovale) Status: Acute (14) Stroke Status: Acute Qualifiers: CVA mechanism: unspecified Precerebral and cerebral artery: P Laterality of affected vessel: L Qualified Code(s): I63.9 - Cerebral infarction, unspecified (15) Depressive disorder Status: Chronic (16) Hyperlipidemia Status: Chronic Qualifiers: Hyperlipidemia type: H (17) Obesity Status: Chronic Qualifiers: Obesity type: O Obesity severity: O Core Measure Documentation - Palliative Care Palliative Care/ Comfort Measures: Not Applicable - Core Measures Any of the following diagnoses?: stroke - VTE Discharge Requirements Deep Vein Thrombosis/Pulmonary Embolism Present on Admission: No - Acute [place] Discharge Requirements Aspirin at discharge: Yes - Heart Failure Discharge Requirements GARTH/ARB for LVSD if EF <40%: Not Applicable - Stroke Discharge Requirements Statin for LDL = or >70 mg/dl on DC: Yes Anticoag for atrial fib/atrial flutter: Not Applicable Antithrombotic for ischemic stroke: Yes Exam - Physical Exam Narrative exam: General appearance: no acute distress, well-nourished - EENT Eyes: EOM intact ENT: hearing intact - Neck Neck: supple - Respiratory Respiratory effort: normal - Breasts Breasts: Present: deferred - Cardiovascular Heart Sounds: Present: S1 & S2 Extremities: No edema - Gastrointestinal General gastrointestinal: soft, tender - Integumentary Integumentary: Present: warm, dry - Musculoskeletal Musculoskeletal: Present: strength equal bilaterally - Neurologic Neurologic: CNII-XII intact - Psychiatric Psychiatric: appropriate mood/affect - Constitutional Vitals: Temp Pulse Resp BP Pulse Ox 97.8 F 114 H 18 200/110 99 08/21/16 07:21 08/21/16 11:59 08/21/16 07:21 08/21/16 11:59 08/21/16 07:21 Plan Activity: no driving until cleared by PCP, up only with assistance, fall precautions Weight Bearing Status: Weight Bear as Tolerated Diet: low salt, diabetic Special Instructions: record daily BP diary, record blood sugar diary, physical therapy, occupational therapy Durable Medical Equipment Needed Upon Discharge: Cane, Wheelchair Follow up with: BERTHA PARADA MD [Primary Care Provider] - 7 Days Prescriptions: AtorvaSTATin [Lipitor] 40 mg PO QHS #30 tablet Sennosides Tab [Senokot] 8.6 mg PO QHS #30 tablet Aspirin [Aspirin TAB] 325 mg PO QDAY #30 tablet cloNIDine [Catapres] 0.1 mg PO Q12HR #60 tablet Clopidogrel [Plavix] 75 mg PO QDAY #30 tablet Docusate Sodium [Colace CAP] 100 mg PO BID #60 capsule hydrALAZINE [Apresoline TAB] 10 mg PO Q8HR #90 tablet Insulin Detemir [Levemir] 18 units SUB-Q BID #1 vial Metoclopramide [Reglan TAB] 5 mg PO AC #90 tablet Nortriptyline [Pamelor] 50 mg PO QDAY #30 capsule oxyCODONE /ACETAMINOPHEN [Percocet 5/325] 1 tab PO Q8HR PRN #30 tablet PRN Reason: Pain Pantoprazole [Protonix TAB] 40 mg PO DAILY #30 tablet Potassium Chloride [K-Dur] 40 meq PO QDAY #30 tablet Sucralfate [Carafate] 1 gm PO HS #1 bottle
--- NOTE | 2016-08-21 14:16 | Progress Note ---
Subjective Date of service: 08/21/16 Principal diagnosis: bilateral acute infarctions Interval history: No adverse overnight issues. But this AM she has been having extreme abdominal pain with elevated BP. Pain not under control with Dilaudid. 55 y.o. female bilateral acute infarctions in the left cerebellar tonsil, lateral left cerebellum, right parieto-occipital region, right thalamus, left basal ganglia, left frontal lobe - s/p CVA- Plavix, ASA, statin; appreciate Neurology input; - gait dysfunction- ambulating >600 feet - dysphagia- tolerating mechanical soft diet - HTN- continues to fluctuate. Clonididne and Hydralazine per Hospitalist. Per Hospitalist: Discussed with patient to find out the reason why she is not on GARTH inhibitor/ARB or beta autumn given her comorbidities. Patient does not know why her primary care provider Dr. Suzanne Mix has on this BP medication regimen. She denies any problems with other blood pressure medications that she can think of. I would prefer to Dr. Mix would not change her home medication. I reached out to Dr. Suzanne Mix, but they are at lunch. - DM- SSI, ADA diet; increased levemir to 20U BID; only eating snacks; not eating meals well. - Chronic abdominal pain- carafate, protonix; changed reglan to scheduled before meals to improve nausea and vomiting; follow for response - DVT px- lovenox - intermittent chest pain- history of PFO on ECHO 12/2015; Per Cardiology: Loop recorder interrogation negative. Continue asa and plavix, statin Per neurology: would not conclusively recommend PFO closure @ this time as this is not clearly the mechanism for pt's strokes - Hypokalemia: KCl supplement. - D/C tomorrow since her BP is uncontrolled. We will have the hospitalist re-eval prior to discharge. Objective - Exam Narrative Exam: General appearance: no acute distress, well-nourished - EENT Eyes: EOM intact ENT: hearing intact - Neck Neck: supple - Respiratory Respiratory effort: normal - Breasts Breasts: Present: deferred - Cardiovascular Heart Sounds: Present: S1 & S2 Extremities: No edema - Gastrointestinal General gastrointestinal: soft, tender - Integumentary Integumentary: Present: warm, dry - Musculoskeletal Musculoskeletal: Present: strength equal bilaterally - Neurologic Neurologic: CNII-XII intact - Psychiatric Psychiatric: appropriate mood/affect - Constitutional Vitals: Vital Signs - 12hr 08/21/16 08/21/16 08/21/16 05:51 07:20 07:21 Temperature 97.8 F Pulse Rate 108 H Pulse Rate [ 100 H Left Brachial] Respiratory 18 Rate Blood Pressure 112/72 Blood Pressure 200/108 190/110 [Left Arm] O2 Sat by Pulse 99 Oximetry 08/21/16 11:59 Temperature Pulse Rate 114 H Pulse Rate [ Left Brachial] Respiratory Rate Blood Pressure 200/110 Blood Pressure [Left Arm] O2 Sat by Pulse Oximetry - Allied health notes FIMS assessment as documented by PT/OT/ST: Grooming Patient cleans teeth/dentures: Yes Patient phan/brushes hair: Yes Patient washes, rinses and Yes dries face: Patient washes, rinses and Yes dries hands: Patient shaves: No Patient applies make-up: No Patient performs (no make-up/ 08/21 (100%) shaving): Grooming FIM Score 6. Modified [place] (Needs equipment/ device . Extra time.) Toileting Toileting Device Commode over Toilet Patient able to: Adjust clothes before,Clean self,Adjust clothes after Patient able to perform: 3/3 (100%) Toileting FIM Score 6. Modified [place] (Needs equip. or prosth ./orth.) Social interaction/Memory/Problem solving Social Interaction FIM Score 7. Complete [place] (Interacts appropriately. Controls temper.) Memory FIM Score 3. Moderate Assistance (Recognizes and remembers 50-74%.) Problem Solving FIM Score 3. Moderate Assistance (Solves routine problems 50-74%.) Transfers Mode of Locomotion: Walking Bed/Chair/Wheelchair Transfers 5. Supervision (Needs supv. or set-up for FIM Score sliding board, foot rests.) Toilet Transfers FIM Score 6. Modified [place] (Uses device, special seat or more time.) Patient transferred to: Shower Shower Transfers FIM Score 5. Supervision (Needs supv. or set-up with device.) Locomotion- Stairs Device used on Stairs Handrail/s Number of Stairs Ascended/ 16 Descended Patient used handrail/support: Yes: Single rail used to simulate home setting. Stairs FIM Score 5. Supervision (12-14 stairs w/ supv. 4-6 stairs independently.) Locomotion- walk/wheelchair Most Frequent Mode of Wheelchair Locomotion: Ambulation Distance 400 Walking FIM Score 5. Supervision (Minimum 150 ft. supv./cues or 50 ft. independently.) Wheelchair Propulsion Distance 100 Wheelchair FIM Score 2. Maximal Assistance (Patient = 25% or more. Minimum of 50 ft.) Eating Eating FIM Score 6. Modified [place] (Special consistency or uses device.) Dressing-Upper body Patient retrieves clothing Yes items: Patient applies/removes UE No: n/a prosthesis or orthosis: Upper Body Dressing FIM Score 6. Modified [place] (Needs equipment, velcro or pros./orth.) Dressing-lower body Patient retrieves clothing Yes items: Patient applies/removes LE No: n/a prosthesis or orthosis: Lower Body Dressing FIM Score 6. Modified [place] (Needs equipment, velcro or pros./orth.) - Labs CBC & Chem 7: 08/17/16 06:05 08/21/16 Unknown Labs: Laboratory Results - last 72 hr 08/18/16 08/18/16 08/19/16 16:19 21:17 06:40 Sodium Potassium Chloride Carbon Dioxide Anion Gap BUN Creatinine Estimated GFR BUN/Creatinine Ratio Glucose POC Glucose 76 154 H 213 H Calcium 08/19/16 08/19/16 08/19/16 11:36 16:39 21:19 Sodium Potassium Chloride Carbon Dioxide Anion Gap BUN Creatinine Estimated GFR BUN/Creatinine Ratio Glucose POC Glucose 151 H 166 H 187 H Calcium 08/20/16 08/20/16 08/20/16 05:15 06:21 12:00 Sodium 140 Potassium 3.2 L Chloride 102.1 Carbon Dioxide 26 Anion Gap 15 BUN 10 Creatinine 1.0 Estimated GFR > 60 BUN/Creatinine Ratio 10.00 Glucose 120 H POC Glucose 125 H 173 H Calcium 8.9 08/20/16 08/20/16 08/21/16 16:34 21:39 06:28 Sodium Potassium Chloride Carbon Dioxide Anion Gap BUN Creatinine Estimated GFR BUN/Creatinine Ratio Glucose POC Glucose 120 H 180 H 146 H Calcium 08/21/16 Unknown Sodium 137 Potassium 3.2 L Chloride 99.6 Carbon Dioxide 23 Anion Gap 18 BUN 12 Creatinine 1.1 Estimated GFR > 60 BUN/Creatinine Ratio 10.90 Glucose 177 H POC Glucose Calcium 9.3 Assessment and Plan - Patient Problems (1) Diabetic gastroparesis Current Visit: Yes Status: Acute (2) Diabetes Current Visit: Yes Status: Chronic Qualifiers: 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 type: type 2 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 complication status: with hyperglycemia 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 complication detail: D Diabetic retinopathy severity: D Proliferative retinopathy type: P 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 macular edema: D 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 fci insulin use: with fci use Laterality: L Chronic kidney disease stage: C Qualified Code(s): E11.65 - Type 2 diabetes mellitus with hyperglycemia; Z79.4 - USP (current) use of insulin (3) Hypertension Current Visit: Yes Status: Chronic Qualifiers: Hypertension type: essential hypertension Qualified Code(s): I10 - Essential (primary) hypertension (4) [place] (acute kidney injury) Current Visit: No Status: Acute (5) Abdominal pain in female patient Current Visit: No Status: Acute (6) Abnormality of gait following cerebrovascular accident (CVA) Current Visit: No Status: Acute (7) Accelerated essential hypertension Current Visit: No Status: Acute (8) Acute ischemic stroke Current Visit: No Status: Acute (9) Acute on chronic renal failure Current Visit: No Status: Acute (10) DVT prophylaxis Current Visit: No Status: Acute (11) Hypertension, uncontrolled Current Visit: No Status: Acute (12) Neuropathic pain Current Visit: No Status: Acute (13) PFO (patent foramen ovale) Current Visit: No Status: Acute (14) Stroke Current Visit: No Status: Acute Qualifiers: CVA mechanism: unspecified Precerebral and cerebral artery: P Laterality of affected vessel: L Qualified Code(s): I63.9 - Cerebral infarction, unspecified (15) Depressive disorder Current Visit: No Status: Chronic (16) Hyperlipidemia Current Visit: No Status: Chronic Qualifiers: Hyperlipidemia type: H (17) Obesity Current Visit: No Status: Chronic Qualifiers: Obesity type: O Obesity severity: O
--- NOTE | 2016-08-21 16:15 | Event Note ---
Date: 08/21/16 notified about patients blood pressure, am not acutally involved in patients care but will increase clonidine to TID. per note from DR enriquez. Cardiology is managing BP
[2016-08-21] MEDS: SENOKOT PO SCH (20:49)
[2016-08-21] MEDS: TYLENOL PO PRN (20:49)
[2016-08-21] MEDS: CARAFATE PO SCH (21:00)
[2016-08-22] MEDS: CATAPRES PO SCH ×2 (01:00→10:01)
[2016-08-22] MEDS: APRESOLINE PO SCH (06:35)
[2016-08-22 07:20] LABS: Anion Gap 15 mmol/L; Blood Urea Nitrogen 11 mg/dL (7-17); Calcium 9.2 mg/dL (8.4-10.2); Carbon Dioxide 26 mmol/L (22-30); Chloride 98.1 mmol/L (98-107); Glucose 126 mg/dL (65-100); Potassium 3.1 mmol/L (3.6-5.0); Sodium 136 mmol/L (137-145)
[2016-08-22] MEDS: NOVOLOG SUB-Q SCH ×2 (07:37→12:18)
[2016-08-22] MEDS: LEVEMIR SUB-Q SCH (08:35)
[2016-08-22] MEDS: REGLAN PO SCH ×2 (08:35→12:05)
[2016-08-22] MEDS: ASPIRIN PO SCH (08:36)
[2016-08-22] MEDS: COLACE PO SCH (08:36)
[2016-08-22] MEDS: PAMELOR PO SCH (08:37)
[2016-08-22] MEDS: PLAVIX PO SCH (08:37)
[2016-08-22] MEDS: PROTONIX PO SCH (10:01)
[2016-08-22] MEDS: HEPARIN SUB-Q SCH (10:01)
[2016-08-22 10:02] VITALS: BP 115/63
--- NOTE | 2016-08-22 10:59 | Progress Note ---
Assessment and Plan Recurrent CVA s/p OLAF showing evidence of PFO s/p LINQ loop recorder implanted at [place] 04/18/2016. No evidence of afib on interrogation. on aspirin, plavix and statin therapy. Chest pain, atypical Cardiomyopathy, LVEF 40-45% Normal MPI 12/2015 Systemic Hypertension Type II DM Hyperlipidemia Conservative cardiac management. Subjective Date of service: 08/22/16 Principal diagnosis: bilateral acute infarctions Interval history: Patient has no complaints. Objective Vital Signs Temp Pulse Pulse Pulse Resp Resp BP 08/22/16 10:01 100 H 115/63 08/22/16 10:00 20 08/22/16 08:00 97.6 F 95 H 20 08/22/16 06:35 121/60 08/22/16 05:47 88 08/22/16 02:30 84 08/22/16 01:00 98 H 107/48 08/22/16 00:52 97.4 F L 100 H 08/21/16 22:22 98 H 08/21/16 21:00 104 H 180/109 08/21/16 19:00 97.5 F L 106 H 20 08/21/16 16:30 100.1 F H 18 L 18 08/21/16 16:29 104 H 208/110 08/21/16 14:24 100 H 200/100 08/21/16 11:59 114 H 200/110 BP BP Pulse Ox 08/22/16 10:01 08/22/16 10:00 08/22/16 08:00 116/71 99 08/22/16 06:35 08/22/16 05:47 121/60 08/22/16 02:30 103/60 08/22/16 01:00 08/22/16 00:52 118/78 08/21/16 22:22 107/48 08/21/16 21:00 08/21/16 19:00 188/109 98 08/21/16 16:30 160/100 99 08/21/16 16:29 08/21/16 14:24 08/21/16 11:59 - Physical Examination General: No Apparent Distress HEENT: Positive: PERRL Neck: Positive: trachea midline Cardiac: Positive: Reg Rate and Rhythm - Labs and Meds Comprehensive Metabolic Panel 08/22/16 Range/Units 06:36 Sodium 136 L (137-145) mmol/L Potassium 3.1 L (3.6-5.0) mmol/L Chloride 98.1 (98-107) mmol/L Carbon Dioxide 26 (22-30) mmol/L BUN 11 (7-17) mg/dL Creatinine 1.1 (0.7-1.2) mg/dL Glucose 126 H (65-100) mg/dL Calcium 9.2 (8.4-10.2) mg/dL
[2016-08-22] MEDS ORDERED: K-DUR PO SCH (11:00)
== END 2016-08-22 14:00 | disposition home health service (06) | DRG 65 ==
LOC: 3B 17:24
PROVIDERS: ADMIT Family Medicine; ATTEND Family Medicine
DX: I63.9 Cerebral infarction, unspecified (principal); N17.9 Acute kidney failure, unspecified; N39.0 Urinary tract infection, site not specified; I42.9 Cardiomyopathy, unspecified; Q21.1 Atrial septal defect; I12.9 Hypertensive chronic kidney disease with stage 1 through stage 4 chronic kidney disease, or unspecified chronic kidney disease; E11.22 Type 2 diabetes mellitus with diabetic chronic kidney disease; N18.9 Chronic kidney disease, unspecified; R26.9 Unspecified abnormalities of gait and mobility; E78.5 Hyperlipidemia, unspecified; E11.43 Type 2 diabetes mellitus with diabetic autonomic (poly)neuropathy; F32.9 Major depressive disorder, single episode, unspecified; E87.6 Hypokalemia; K21.9 Gastro-esophageal reflux disease without esophagitis; K31.84 Gastroparesis; E66.9 Obesity, unspecified; R13.10 Dysphagia, unspecified; E11.65 Type 2 diabetes mellitus with hyperglycemia; G89.29 Other chronic pain; R10.9 Unspecified abdominal pain; Z88.6 Allergy status to analgesic agent; Z83.3 Family history of diabetes mellitus; Z82.49 Family history of ischemic heart disease and other diseases of the circulatory system; Z90.710 Acquired absence of both cervix and uterus; Z79.4 Long term (current) use of insulin; Z68.31 Body mass index [BMI] 31.0-31.9, adult
CPT/HCPCS: 36415; 78582; 80048; 80053; 82550; 82553; 82962; 83735; 84484; 85025; 85027; 93005; 93010; 93970; A9270-GY; A9540; A9558; J0360; J1644; J1650; J1815; J1818; J2405; J7030; Q0162

== ENCOUNTER 2016-12-31 21:11 | Inpatient (IN) | payer OTHER ==
--- NOTE | 2016-12-31 21:49 | Emergency Department Report ---
HPI - General Time Seen by Provider: 12/31/16 21:16 - HPI HPI: This is a 56-year-old female presents to the emergency department by EMS with the complaint of altered mental status and a unresponsive episode. EMS found the patient at home responsive only to painful stimuli. Just prior to presentation she was given 2 mg of Narcan nasally and she had some improvement but still is altered. Family did call EMS but they said the last time she was seen at her baseline was Saturday, 2-3 days ago. She does have a history of CVA 2, hypertension and insulin-dependent diabetes. It is unknown if the stroke left her with any permanent deficits. Patient is poor historian secondary to her current medical condition. ED Past Medical Hx - Past Medical History Hx Hypertension: Yes Hx Heart Attack/AMI: No Hx Congestive Heart Failure: No Hx Diabetes: Yes Hx Deep Vein Thrombosis: No Hx Pulmonary Embolism: No Hx GERD: Yes Hx Liver Disease: No Hx Renal Disease: No Hx Sickle Cell Disease: No Hx Arthritis: Yes Hx Headaches / Migraines: No Hx Seizures: No Hx Kidney Stones: No Hx Asthma: No Hx COPD: No Hx Tuberculosis: No Hx Dementia: No Hx HIV: No Additional medical history: Gastroparesis. HIGH CHOLESTEROL - Surgical History Hx Coronary Stent: No Hx Open Heart Surgery: No Hx Pacemaker: No Hx Internal Defibrillator: No Hx Cholecystectomy: No Hx Appendectomy: Yes Hx Breast Surgery: No Additional Surgical History: Lysis of adhesions. hysterectomy - Social History Smoking Status: Never Smoker - Medications Home Medications: Home Medications Medication Instructions Recorded Confirmed Last Taken Type Magnesium Hydroxide [Milk of 30 ml PO Q4H PRN #30 oral.liqd 08/09/16 08/09/16 Unknown Rx Magnesia] Aspirin [Aspirin TAB] 325 mg PO QDAY #30 tablet 08/20/16 Unknown Rx AtorvaSTATin [Lipitor] 40 mg PO QHS #30 tablet 08/20/16 Unknown Rx Clopidogrel [Plavix] 75 mg PO QDAY #30 tablet 08/20/16 Unknown Rx Docusate Sodium [Colace CAP] 100 mg PO BID #60 capsule 08/20/16 Unknown Rx Insulin Detemir [Levemir] 18 units SUB-Q BID #1 vial 08/20/16 Unknown Rx Metoclopramide [Reglan TAB] 5 mg PO AC #90 tablet 08/20/16 Unknown Rx Nortriptyline [Pamelor] 50 mg PO QDAY #30 capsule 08/20/16 Unknown Rx Pantoprazole [Protonix TAB] 40 mg PO DAILY #30 tablet 08/20/16 Unknown Rx Sennosides Tab [Senokot] 8.6 mg PO QHS #30 tablet 08/20/16 Unknown Rx Sucralfate [Carafate] 1 gm PO HS #1 bottle 08/20/16 Unknown Rx cloNIDine [Catapres] 0.1 mg PO Q12HR #60 tablet 08/20/16 Unknown Rx hydrALAZINE [Apresoline TAB] 10 mg PO Q8HR #90 tablet 08/20/16 Unknown Rx oxyCODONE /ACETAMINOPHEN [Percocet 1 tab PO Q8HR PRN #30 tablet 08/21/16 Unknown Rx 5/325] Potassium Chloride [K-Dur] 40 meq PO QDAY #30 tablet 08/22/16 Unknown Rx ED Review of Systems ROS: Stated complaint: UNRESPONSIVE Other details as noted in HPI Comment: Unobtainable due to pts medical conditions Physical Exam - Physical Exam Physical Exam: GENERAL: Patient is ill-appearing. HEENT: Normocephalic. Atraumatic. Pupils equal reactive to light bilaterally.. Patient is mostly just staring straight forward. Patient has moist mucous membranes. NECK: Supple. Trachea is midline. CHEST/LUNGS: Clear to auscultation. There is no respiratory distress noted. HEART/CARDIOVASCULAR: Regular. There is no tachycardia. There is no gallop rub or murmur. ABDOMEN: Abdomen is soft, nontender. Patient has normal bowel sounds. There is no abdominal distention. SKIN: Skin is warm and dry. NEURO: Patient is mostly nonverbal. She responds to painful stimuli. She is not following any commands currently. MUSCULOSKELETAL: There is no tenderness or deformity. There is no evidence of acute injury. ED Medical Decision Making - Lab Data Result diagrams: 12/31/16 23:19 12/31/16 23:19 - EKG Data -: EKG Interpreted by Me EKG shows normal: sinus rhythm, axis, intervals (prolonged QTC), QRS complexes ( LVH), ST-T waves Rate: normal - EKG Data When compared to previous EKG there are: previous EKG unavailable Interpretation: other (sinus rhythm, LVH, prolonged QTC) - Radiology Data Radiology results: report reviewed CT of the head does not show any acute bleed, shift, mass, ischemia or skull fracture. Findings most likely representing chronic ischemia or atrophic changes. - Medical Decision Making 56-year-old female presents to the emergency department after EMS was called secondary to a unresponsive episode. The patient was only sponsor to painful stimuli at that time. She was given Narcan eventually had spontaneous eye opening and was seen moving some of her extremities but still was not following any commands. Throughout her ED stay the patient is become more active. Despite the fact that the patient is catheterized, she continues to say that she needs to be and is trying to get out of bed to do so. Seen moving her extremities. CT of the head did not show any bleed, shift, mass or any acute process. Her labs show hyperglycemia but the patient does not appear to have DKA or H&H NK and was given IV insulin. She has some acute on chronic renal insufficiency. Urine drug screen is negative. There is no urinary tract infection. Patient will be admitted to the hospital for further evaluation and possible MRI. She's been accepted for admission by the hospitalist, Dr. Hollis. - Differential Diagnosis CVA, TIA, sepsis, hyperglycemia, DKA Critical Care Time: No Critical care attestation.: If time is entered above; I have spent that time in minutes in the direct care of this critically ill patient, excluding procedure time. ED Disposition Clinical Impression: Hyperglycemia, History of CVA (cerebrovascular accident) Altered mental status Qualifiers: Altered mental status type: unspecified Qualified Code(s): R41.82 - Altered mental status, unspecified Acute on chronic renal failure Qualifiers: Acute renal failure type: unspecified Chronic kidney disease stage: unspecified stage Qualified Code(s): N17.9 - Acute kidney failure, unspecified; N18.9 - Chronic kidney disease, unspecified Disposition: OP ADMIT IP TO THIS HOSP Is pt being admited?: Yes Condition: Poor Time of Disposition: 01:32
[2016-12-31 22:41] LABS: Urine Drugs of Abuse Note Disclamer
--- NOTE | 2016-12-31 22:51 | Cat Scan Report ---
FINAL REPORT EXAM: CT HEAD/BRAIN WO CON HISTORY: lethargic , dizzy with fall, poss. rt facial droop hx stroke TECHNIQUE: Noncontrast CT axial images of the brain. PRIORS: 05 August 2016. FINDINGS: No parenchymal mass, hemorrhage, midline shift or hydrocephalus. No evidence of acute cortical infarct. No abnormal, extra-axial fluid or air collection. Mild, patchy low density in the periventricular and subcortical white matter is nonspecific, but may relate to chronic small vessel ischemic change. Focal encephalomalacia in the right temporal and right posterior parietal regions and left inferior cerebellum suggesting old ischemic change or infarcts, stable or with appropriate interval change and evolution. Probable old lacunar infarct changes in the bilateral basal ganglia, left frontoparietal deep white matter of centrum semiovale and pontine region again noted. Age related volume loss. Osseous calvarium grossly intact. IMPRESSION: 1. Findings probably representing chronic ischemic and atrophic changes. Please note that MRI is a far more sensitive modality in the evaluation of acute cerebral ischemia, and followup may be warranted. 2. No other acute intracranial findings.
[2016-12-31 22:59] LABS: Bacteria,Urine 2+ /HPF (Negative); Bilirubin,Urine SM (Negative); Blood,Urine SM (Negative); Ketones,Urine TR mg/dL (Negative); Leukocyte Esterase,Urine TR (Negative); Mucus,Urine 2+ /HPF; Nitrite,Urine NEG (Negative)
[2016-12-31 23:01] LABS: WBC,Urine < 1.0 /HPF (0.0-6.0)
[2016-12-31] MEDS ORDERED: ATIVAN IV ONE (23:52)
[2017-01-01 00:01] LABS: BUN/Creatinine Ratio 11.14; Calcium 11.2 mg/dL (8.4-10.2); Chloride 92.3 mmol/L (98-107); Potassium 4.2 mmol/L (3.6-5.0)
[2017-01-01 00:09] LABS: Basophils % (Auto) 0.4 % (0.0-1.8); Eosinophils % (Auto) 0.1 % (0.0-4.3); Mean Corpuscular HGB Conc 31 % (30-34); Mean Corpuscular Volume 82 fl (79-97); Platelet Count 498 K/mm3 (140-440); Red Blood Count 5.21 M/mm3 (3.65-5.03); Red Cell Distribution Width 16.3 % (13.2-15.2)
[2017-01-01 00:14] LABS: Hematocrit 42.6 % (30.3-42.9); Hemoglobin 13.1 gm/dl (10.1-14.3); Mean Corpuscular Hemoglobin 25 pg (28-32)
[2017-01-01 00:19] LABS: INR 1.11 (0.87-1.13)
[2017-01-01] MEDS ORDERED: NACL 0.9% 1000 ML 1,000 ML ONE (00:32)
[2017-01-01] MEDS ORDERED: NACL 0.9% 1000 ML 1,000 ML IV ONE (01:04)
--- NOTE | 2017-01-01 03:53 | Cat Scan Report ---
FINAL REPORT EXAM: CT ABDOMEN PELVIS WO CON HISTORY: abdominal pain COMPARISON: CT of the abdomen pelvis May 05, 2016. TECHNIQUE: Contiguous axial images were obtained. Additional sagittal and coronal reformatted images were obtained. FINDINGS: Mild atelectasis at the lung bases. Aneurysmal dilatation the visualized ascending thoracic aorta measuring 4.4 centimeters in diameter. Gallbladder surgically absent. Liver, spleen, pancreas are grossly unremarkable. Mild nodular thickening of adrenal glands. 2 millimeter nonobstructive left renal calculus. No hydronephrosis bilaterally. Aorta is normal in caliber. Mild to moderate calcified plaque along the aorta. Urinary bladder is decompressed by Cavazos catheter. There are few pelvic phleboliths. No free fluid or lymphadenopathy in the pelvic cavity. Previously seen wall thickening and high attenuation material within the left renal pelvis and proximal ureter are no longer present on today's exam. This may reflect a transient inflammatory process. Large and small bowel loops normal in caliber. Small to moderate amount of stool in the colon. Appendix is not visualized. However, there is no pericecal stranding or fluid to suggest acute inflammation. Lumbar vertebral body heights are preserved. Bony pelvis is grossly intact. IMPRESSION: Previously seen wall thickening and high attenuation material left renal pelvis and proximal ureter are no longer present on today's exam. This may have reflected a transient inflammatory process. There is a stable 2 millimeter nonobstructive left renal calculus. No obstructive uropathy or gross inflammatory changes of the renal collecting system on today's exam. Large and small bowel loops normal in caliber. Appendix is not visualized. However, there is no pericecal stranding or fluid to suggest acute inflammation. Mild aneurysmal dilatation visualized ascending thoracic aorta measuring 4.4 centimeters in diameter.
[2017-01-01] MEDS ORDERED: DULCOLAX PR PRN (06:15)
[2017-01-01] MEDS ORDERED: MILK OF MAGNESIA PO PRN (06:15)
--- NOTE | 2017-01-01 06:15 | History and Physical Report ---
History of Present Illness Date of examination: 01/01/17 Date of admission: 01/01/17 02:42 History of present illness: 55-year-old woman with a history of hypertension, diabetes, coronary artery disease, hyperlipidemia, GERD was brought to the emergency room for confusion. The patient states that she is here because of abdominal pain, she is unable to give any detailed. Review of the chart shows that she has worsening renal function and elevated white count. Review of system is unable to be obtained Past medical history:hypertension, diabetes, coronary artery disease, hyperlipidemia, GERD PAST SURGICAL HISTORY: Hysterectomy, appendectomy, cholecystectomy, lysis of dictation SOCIAL HISTORY: Denies alcohol, tobacco, drugs FAMILY HISTORY: Hypertension Medications and Allergies Allergies Allergy/AdvReac Type Severity Reaction Status Date / Time morphine AdvReac Vomiting Verified 12/31/16 21:46 Home Medications Medication Instructions Recorded Confirmed Last Taken Type Magnesium Hydroxide [Milk of 30 ml PO Q4H PRN #30 oral.liqd 08/09/16 08/09/16 Unknown Rx Magnesia] Aspirin [Aspirin TAB] 325 mg PO QDAY #30 tablet 08/20/16 Unknown Rx AtorvaSTATin [Lipitor] 40 mg PO QHS #30 tablet 08/20/16 Unknown Rx Clopidogrel [Plavix] 75 mg PO QDAY #30 tablet 08/20/16 Unknown Rx Docusate Sodium [Colace CAP] 100 mg PO BID #60 capsule 08/20/16 Unknown Rx Insulin Detemir [Levemir] 18 units SUB-Q BID #1 vial 08/20/16 Unknown Rx Metoclopramide [Reglan TAB] 5 mg PO AC #90 tablet 08/20/16 Unknown Rx Nortriptyline [Pamelor] 50 mg PO QDAY #30 capsule 08/20/16 Unknown Rx Pantoprazole [Protonix TAB] 40 mg PO DAILY #30 tablet 08/20/16 Unknown Rx Sennosides Tab [Senokot] 8.6 mg PO QHS #30 tablet 08/20/16 Unknown Rx Sucralfate [Carafate] 1 gm PO HS #1 bottle 08/20/16 Unknown Rx cloNIDine [Catapres] 0.1 mg PO Q12HR #60 tablet 08/20/16 Unknown Rx hydrALAZINE [Apresoline TAB] 10 mg PO Q8HR #90 tablet 08/20/16 Unknown Rx oxyCODONE /ACETAMINOPHEN [Percocet 1 tab PO Q8HR PRN #30 tablet 08/21/16 Unknown Rx 5/325] Potassium Chloride [K-Dur] 40 meq PO QDAY #30 tablet 08/22/16 Unknown Rx Active Meds: Active Medications Sodium Chloride (Nacl 0.9% 1000 Ml) 1,000 mls @ 125 mls/hr IV ONCE ONE Stop: 01/01/17 09:03 Last Admin: 01/01/17 01:09 Dose: 125 mls/hr Exam - Physical Exam Narrative exam: Gen. appearance: Patient lying in bed, no apparent distress HEENT: Normocephalic, atraumatic, pupils equally round and reactive to light, extraocular movement intact, and no sclericterus,. No JVD or thyromegaly or nodule,neck supple, no carotid bruit ,mucous membranes moist, no exudate or erythema Heart: S1, S2, regular rate and rhythm Lungs: Clear to auscultation bilaterally, breathing comfortable Abdomen: Positive bowel sounds, nontender, nondistended, no organomegaly Extremity: No edema, cyanosis, clubbing Skin: No rash, nodules, warm, dry Neuro: ORIENTED TO NAME, difficult to assess - Constitutional Vitals: Temp Pulse Resp BP Pulse Ox 98.1 F 99 H 16 155/95 100 01/01/17 06:00 01/01/17 06:00 01/01/17 06:00 01/01/17 06:00 01/01/17 06:00 Results - Labs CBC & Chem 7: 01/02/17 05:37 01/02/17 20:32 Labs: Abnormal lab results 01/01/17 Range/Units 05:35 POC Glucose 248 H (70-105) - Imaging and Cardiology CT Scan - head: report reviewed Assessment and Plan Assessment Acute renal failure SIRS Abdominal pain Encephalopathy most likely metabolic Hypertension Diabetes of 2 Hyperlipidemia Plan Admit to medicine Start IV fluids, IV antibiotic, obtain blood cultures, urinalysis Check CAT scan of the abdomen Check fingersticks initiate insulin sliding scale Start DVT prophylaxis
[2017-01-01] MEDS: NACL 0.45% 1000 ML 1,000 ML IV SCH (07:29)
--- NOTE | 2017-01-01 08:34 | Admit Criteria Form ---
Admission Criteria Documentation: MENTAL STATUS CHANGE Clinical Indications for Inpatient Care (Place 'X' for any and all applicable criteria): Ongoing inpatient care may be needed for 1 or more of the following(1)(2)(3)(5)( 6): [ X]I. Suspected serious etiology (eg, medical disorder, [employer] event) of altered mental status [ ]II. Danger to self or others not manageable at lower level of care [ ]III. Grave disability (eg, inability to perform self care necessary at lower level of care) [ ]IV. Agitation or inappropriate behavior interfering with care for primary condition (eg, attempting to discontinue lines or drains prematurely, unable to cooperate with respiratory care) [ ]V. Delirium [A] [D][E] as described by 1 or more of the following(26): [ ]a) Delirium due to alcohol or sedative [F] withdrawal [ ]b) Delirium of uncertain etiology that has not responded to appropriate empiric treatment [ ]c) Delirium that prevents performance of a life-sustaining function (eg, feeding or hydrating oneself) [ ]. General contraindications and/or Inappropriate clinical situations for Observational Care in patients with Mental Status Change, when ANY ONE of the following is required: [ ]a) Prediction of prolongation of LOS based on ANY ONE of the following may be considered as a contraindication for observational care 2, 3, 4, 5, 6, 7, 8, 9, 10, 11 [ ]i) Age > 65 yrs. [ ]ii) Patient arriving by ambulance [ ]iii) Patient with high acuity [ ]iv) Patient requiring vital sign monitoring [ ]v) Patient on IV medication [ ]b) Systolic blood pressures greater than or equal to 180mmHg 3, 12 [ ]c) Patient with altered mental status including delirium and other alteration of consciousness, (3) [ ]d) Patient whose discharge disposition will be to a [facility] home or rehabilitation home should not be managed in Emergency Department Observation Unit. CMS rule requires 3 days hospital stay before such placement.3,13 [ ]e) Patient with failure to thrive due to broad array of etiologies 3,16,17 [ ]f) Inability to ambulate 3,14 Extended stay beyond goal length of stay for the primary condition may be needed until ALL of the following are present(3)(5): [ ]a) Underlying medical etiology of mental status change is absent, or has been established and adequately treated [ ]b) Danger to self or others is absent or manageable at lower level of care. [ ]c) Behavior crisis management, including physical or chemical restraints, is not required or available at lower level of car [ ]d) Substance or alcohol withdrawal is absent or manageable at lower level of care. [ ]e) Behavioral symptoms (eg, agitation, somnolence, inappropriate behavior) are absent, or are manageable at lower level of care. The original [facility] [employer] content created by [facility] [employer] has been revised. The portions of the content which have been revised are identified through the use of italic text or in bold, and [facility] has neither reviewed nor approved the modified material. All other unmodified content is copyright [facility] [employer]. Please see references footnoted in the original [facility] edition 2016 Admission Criteria Met: Yes
[2017-01-01 09:05] LABS: Creatine Kinase MB 3.9 ng/mL (0.0-4.0)
[2017-01-01] MEDS ORDERED: LEVAQUIN 750MG/150ML 750 MG/150 ML BAG IV SCH ×2 (10:00→12:00)
[2017-01-01 13:18] LABS: Creatine Kinase MB 3.5 ng/mL (0.0-4.0)
[2017-01-01] MEDS: ZOFRAN IV PRN (15:46)
[2017-01-01] MEDS ORDERED: D50W (25GM) Syringe IV PRN (15:51)
[2017-01-01] MEDS: NOVOLOG SUB-Q SCH ×2 (17:50→22:00)
[2017-01-01] MEDS: TYLENOL PO PRN (17:57)
[2017-01-02] MEDS: NACL 0.45% 1000 ML 1,000 ML IV SCH ×2 (00:28→15:01)
[2017-01-02] MEDS: ZOFRAN IV PRN ×2 (00:33→09:20)
[2017-01-02] MEDS: TYLENOL PO PRN (06:02)
[2017-01-02 06:22] LABS: Basophils % (Auto) 0.5 % (0.0-1.8); Eosinophils % (Auto) 0.9 % (0.0-4.3); Hematocrit 37.1 % (30.3-42.9); Hemoglobin 11.9 gm/dl (10.1-14.3); Mean Corpuscular HGB Conc 32 % (30-34); Mean Corpuscular Hemoglobin 26 pg (28-32); Mean Corpuscular Volume 81 fl (79-97); Platelet Count 400 K/mm3 (140-440); Red Blood Count 4.56 M/mm3 (3.65-5.03); Red Cell Distribution Width 16.2 % (13.2-15.2); White Blood Count 12.5 K/mm3 (4.5-11.0)
[2017-01-02 06:41] LABS: BUN/Creatinine Ratio 12.22; Calcium 10.2 mg/dL (8.4-10.2); Chloride 96.2 mmol/L (98-107)
[2017-01-02] MEDS: NOVOLOG SUB-Q SCH ×4 (09:19→22:20)
--- NOTE | 2017-01-02 13:17 | XRay Report ---
Supine and upright views of the abdomen: Nausea and vomiting. There is a cholecystectomy clip in the right upper quadrant. There is a somewhat unusual transverse shaped contained collection of gas just above the pubis. The bowel gas pattern is otherwise unremarkable. No free air. No soft tissue mass. Impression: Unusual pelvic gas pattern as described. Followup KUB recommended.
--- NOTE | 2017-01-02 16:30 | Progress Note ---
Assessment and Plan Assessment and plan: Patient is a 55-year-old woman with a history of hypertension, diabetes mellitus type 2, coronary artery disease, hyperlipidemia and GERD was brought to the emergency room for confusion. The patient states that she is here because of abdominal pains, she is unable to give any detailed. Review of the chart shows that she has worsening renal function and elevated white count. 2v Abd XR read as unusual pelvic gas pattern, there is a somewhat unusual transverse shaped contained collection of gas just above the pubis. The bowel gas is otherwise unremarkable, no free air, no soft tissue mass per Dr. Baca. CT abdomen and pelvis without contrast was read as previously seen wall thickness and high attenuation material left renal pelvis and proximal ureter no longer present on today's exam, this may reflect a transient inflammatory process, there is a stable 2 mm nonobstructing left renal calculus , no obstructive uropathy or gross inflammatory changes of the renal collecting set system on today's exam, large and small bowel loops normal in caliber, appendix is not visualized, however there is no pericecal stranding or fluid to suggest an acute inflammation, mild aneurysmal dilatation visualized ascending thoracic aorta measuring 4.4 cm in diameter. -Acute renal failure, vasomotor nephropathy worsening: consulted Nephrology -SIRS, leukocytosis improved after starting on levaquin: stop Levaquin due to ARF, use iv rocephin empiric uti. Await culture. Check chest xr -Abdominal pain with nausea vomiting: antiemetic, clears. -Acute Encephalopathy most likely metabolic, resolving, d/c restraints: treat the renal failure -Hypertension, uncontrolled: iv prn antihypertensives, Continue to monitor -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 type 2: ssi -Hyperlipidemia: statin full code Disposition: Continue inpatient care, once renal function improves may be discharged History Interval history: Patient seen and examined. Follow up on current diagnosis/confusion. Overnight uneventful. No cp, sob, or severe headaches. Imaging, old records, testing, labs , nursing notes reviewed. 2 brothers at bedside. Patient complains of nausea vomiting. Generalized abdominal pain Hospitalist Physical - Physical exam Narrative exam: GEN: WDWN, NAD, AWAKE, ALERT, ORIENTATED x 3 HEENT: NCAT, PERRL, EOMI, OP CLEAR NECK: SUPPLE, NO THYROMEGALY, NO JVD, NO LAD CVS: RRR, NORMAL S1S2 LUNGS/CHEST: CTA B, NORMAL CHEST EXPANSION B, GOOD AIR ENTRY B ABD: SOFT, diffuse tenderness, GBS, NO REBOUND OR GUARDING EXT/SKIN: NO SIGNIFICANT EDEMA OR RASH MSK: FROM X 4 EXTREMITIES NEURO: CN 2-12 GROSSLY INTACT, NO FOCAL DEFICITS PSY: CALM - Constitutional Vitals: Temp Pulse Resp BP Pulse Ox 97.7 F 84 20 140/90 98 01/02/17 16:00 01/02/17 16:00 01/02/17 16:00 01/02/17 16:00 01/02/17 16:00 Results - Labs CBC & Chem 7: 01/02/17 05:37 01/02/17 05:37 Labs: Laboratory Last Values WBC 12.5 K/mm3 (4.5-11.0) H 01/02/17 05:37 RBC 4.56 M/mm3 (3.65-5.03) 01/02/17 05:37 Hgb 11.9 gm/dl (10.1-14.3) 01/02/17 05:37 Hct 37.1 % (30.3-42.9) 01/02/17 05:37 MCV 81 fl (79-97) 01/02/17 05:37 MCH 26 pg (28-32) L 01/02/17 05:37 MCHC 32 % (30-34) 01/02/17 05:37 RDW 16.2 % (13.2-15.2) H 01/02/17 05:37 Plt Count 400 K/mm3 (140-440) 01/02/17 05:37 Lymph % (Auto) 18.1 % (13.4-35.0) 01/02/17 05:37 [place] % (Auto) 11.4 % (0.0-7.3) H 01/02/17 05:37 Eos % (Auto) 0.9 % (0.0-4.3) 01/02/17 05:37 Baso % (Auto) 0.5 % (0.0-1.8) 01/02/17 05:37 Lymph # 2.3 K/mm3 (1.2-5.4) 01/02/17 05:37 [place] # 1.4 K/mm3 (0.0-0.8) H 01/02/17 05:37 Eos # 0.1 K/mm3 (0.0-0.4) 01/02/17 05:37 Baso # 0.1 K/mm3 (0.0-0.1) 01/02/17 05:37 Seg Neutrophils % 69.1 % (40.0-70.0) 01/02/17 05:37 Seg Neutrophils # 8.7 K/mm3 (1.8-7.7) H 01/02/17 05:37 PT 14.2 Sec. (12.2-14.9) 12/31/16 23:19 INR 1.11 (0.87-1.13) 12/31/16 23:19 APTT 32.0 Sec. (24.2-36.6) 12/31/16 23:19 Thrombin Time 18.8 Sec. (15.1-19.6) 12/31/16 23:19 Sodium 141 mmol/L (137-145) 01/02/17 05:37 Potassium 4.0 mmol/L (3.6-5.0) 01/02/17 05:37 Chloride 96.2 mmol/L (98-107) L 01/02/17 05:37 Carbon Dioxide 23 mmol/L (22-30) 01/02/17 05:37 Anion Gap 26 mmol/L 01/02/17 05:37 BUN 55 mg/dL (7-17) H 01/02/17 05:37 Creatinine 4.5 mg/dL (0.7-1.2) H 01/02/17 05:37 Estimated GFR 12 ml/min 01/02/17 05:37 BUN/Creatinine Ratio 12.22 % 01/02/17 05:37 Glucose 188 mg/dL (65-100) H 01/02/17 05:37 POC Glucose 194 (70-105) H 01/02/17 11:26 Hemoglobin A1c 13.9 % (4-6) H 01/01/17 18:11 Calcium 10.2 mg/dL (8.4-10.2) 01/02/17 05:37 Total Creatine Kinase 374 units/L (30-135) H 01/01/17 12:46 CK-MB (CK-2) 3.5 ng/mL (0.0-4.0) 01/01/17 12:46 CK-MB (CK-2) Rel Index 0.9 (0-4) 01/01/17 12:46 Troponin T 0.015 ng/mL (0.00-0.029) 01/01/17 12:46 Urine Color Kateryna (Yellow) 12/31/16 22:30 Urine Turbidity Turbid (Clear) 12/31/16 22:30 Urine pH 5.0 (5.0-7.0) 12/31/16 22:30 Ur Specific [place] 1.026 (1.003-1.030) 12/31/16 22:30 Urine Protein 100 mg/dl mg/dL (Negative) 12/31/16 22:30 Urine Glucose (UA) 50 mg/dL (Negative) 12/31/16 22:30 Urine Ketones Tr mg/dL (Negative) 12/31/16 22:30 Urine Blood Sm (Negative) 12/31/16 22:30 Urine Nitrite Neg (Negative) 12/31/16 22:30 Urine Bilirubin Sm (Negative) 12/31/16 22:30 Urine Ictotest Negative (Negative) 12/31/16 22:30 Urine Urobilinogen 2.0 mg/dL (<2.0) 12/31/16 22:30 Ur Leukocyte Esterase Tr (Negative) 12/31/16 22:30 Urine WBC (Auto) < 1.0 /HPF (0.0-6.0) 12/31/16 22:30 Urine RBC (Auto) 5.0 /HPF (0.0-6.0) 12/31/16 22:30 U Epithel Cells (Auto) 13.0 /HPF (0-13.0) 12/31/16 22:30 Urine Bacteria (Auto) 2+ /HPF (Negative) 12/31/16 22:30 Hyaline Casts 20 /LPF 12/31/16 22:30 Urine Mucus 2+ /HPF 12/31/16 22:30 Urine Opiates Screen Presumptive negative 12/31/16 22:30 Urine Methadone Screen Presumptive negative 12/31/16 22:30 Ur Barbiturates Screen Presumptive negative 12/31/16 22:30 Ur Phencyclidine Scrn Presumptive negative 12/31/16 22:30 Ur Amphetamines Screen Presumptive negative 12/31/16 22:30 U Benzodiazepines Scrn Presumptive negative 12/31/16 22:30 Urine Cocaine Screen Presumptive negative 12/31/16 22:30 U Marijuana (THC) Screen Presumptive negative 12/31/16 22:30 Drugs of Abuse Note Disclamer 12/31/16 22:30
[2017-01-02] MEDS ORDERED: REGLAN IV PRN (16:56)
[2017-01-02] MEDS: DILAUDID IV PRN ×2 (17:28→22:21)
[2017-01-02 21:16] LABS: BUN/Creatinine Ratio 17.4; Calcium 9.6 mg/dL (8.4-10.2); Chloride 95.6 mmol/L (98-107); Potassium 3.6 mmol/L (3.6-5.0)
[2017-01-02] MEDS: LEVEMIR SUB-Q SCH (22:20)
[2017-01-03] MEDS: NACL 0.45% 1000 ML 1,000 ML IV SCH ×2 (04:16→19:23)
[2017-01-03] MEDS: DILAUDID IV PRN ×4 (05:48→20:18)
--- NOTE | 2017-01-03 07:21 | XRay Report ---
AP CHEST: HISTORY: Shortness of breath, pneumonia AP view of the chest demonstrates a normal mediastinal and cardiac contour with clear lungs and normal bony and soft tissue structures. External device overlying the cardiac shadow is noted. IMPRESSION: Unremarkable AP chest.
--- NOTE | 2017-01-03 08:43 | Ultrasound Report ---
ULTRASOUND RENAL INDICATION: Acute renal failure. COMPARISON: 08/08/2016. FINDINGS: Renal sonography suggests top normal/borderline increased renal cortical echogenicity. Grossly preserved contours. No hydronephrosis. RIGHT KIDNEY measures 10 x 3.4 x 4.2 cm with cortical thickness of 1.2 cm. LEFT KIDNEY estimated at 11 x 5.9 x 6 cm with cortical thickness of 1.7 cm. URINARY BLADDER empty and inadequately assessed. CONCLUSION: Slight underlying medical renal disease not excluded sonographically without acute renal abnormality. Please correlate. Thank you for the opportunity to participate in this patient's care.
[2017-01-03] MEDS: NOVOLOG SUB-Q SCH ×4 (08:59→22:09)
--- NOTE | 2017-01-03 09:46 | Consultation ---
History of Present Illness - Reason for Consult Consult date: 01/03/17 acute renal failure - History of Present Illness Patient is a 55-year-old AAF with history significant for Obesity, Hypertension , Type 2 diabetes, CAD, Hyperlipidemia, GERD and chronic pain syndrome was brought to the emergency room for AMS. Patient is well known to our service and she was admitted in the past with similar presentation. She is a poor historian. The patient states that she is having abdominal pain, N, V and D for the past 3 days and associated with poor PO intake. Her creatinine was 3.5 , increased to 4.5 yesterday and it is 2.7 today. Her baseline creatinine is around 1. Past History Past Medical History: diabetes, hypertension, hyperlipidemia Medications and Allergies Allergies Allergy/AdvReac Type Severity Reaction Status Date / Time morphine AdvReac Vomiting Verified 12/31/16 21:46 Home Medications Medication Instructions Recorded Confirmed Last Taken Type Magnesium Hydroxide [Milk of 30 ml PO Q4H PRN #30 oral.liqd 08/09/16 08/09/16 Unknown Rx Magnesia] Aspirin [Aspirin TAB] 325 mg PO QDAY #30 tablet 08/20/16 Unknown Rx AtorvaSTATin [Lipitor] 40 mg PO QHS #30 tablet 08/20/16 Unknown Rx Clopidogrel [Plavix] 75 mg PO QDAY #30 tablet 08/20/16 Unknown Rx Docusate Sodium [Colace CAP] 100 mg PO BID #60 capsule 08/20/16 Unknown Rx Insulin Detemir [Levemir] 18 units SUB-Q BID #1 vial 08/20/16 Unknown Rx Metoclopramide [Reglan TAB] 5 mg PO AC #90 tablet 08/20/16 Unknown Rx Nortriptyline [Pamelor] 50 mg PO QDAY #30 capsule 08/20/16 Unknown Rx Pantoprazole [Protonix TAB] 40 mg PO DAILY #30 tablet 08/20/16 Unknown Rx Sennosides Tab [Senokot] 8.6 mg PO QHS #30 tablet 08/20/16 Unknown Rx Sucralfate [Carafate] 1 gm PO HS #1 bottle 08/20/16 Unknown Rx cloNIDine [Catapres] 0.1 mg PO Q12HR #60 tablet 08/20/16 Unknown Rx hydrALAZINE [Apresoline TAB] 10 mg PO Q8HR #90 tablet 08/20/16 Unknown Rx oxyCODONE /ACETAMINOPHEN [Percocet 1 tab PO Q8HR PRN #30 tablet 08/21/16 Unknown Rx 5/325] Potassium Chloride [K-Dur] 40 meq PO QDAY #30 tablet 08/22/16 Unknown Rx Active Meds: Active Medications Acetaminophen (Tylenol) 650 mg PO Q4H PRN PRN Reason: Pain MILD(1-3)/Fever >100.5/GARCIA Last Admin: 01/02/17 06:02 Dose: 650 mg Bisacodyl (Dulcolax) 10 mg NE QDAY PRN PRN Reason: Constipation unrelieved by MOM Dextrose (D50w (25gm)) 50 ml IV PRN PRN PRN Reason: Hypoglycemia Hydromorphone HCl (Dilaudid) 0.5 mg IV Q3H PRN PRN Reason: Pain , Severe (7-10) Last Admin: 01/03/17 05:48 Dose: 0.5 mg Sodium Chloride (Nacl 0.45% 1000 Ml) 1,000 mls @ 75 mls/hr IV DIRECT ROSA Last Admin: 01/03/17 04:16 Dose: 75 mls/hr Ceftriaxone Sodium (Rocephin/Ns 1 Gm/50 Ml) 1 gm in 50 mls @ 100 mls/hr IV Q24HR [facility] PRN Reason: Protocol Insulin Aspart (Novolog) 0 units SUB-Q ACHS ROSA PRN Reason: Protocol Last Admin: 01/03/17 08:59 Dose: 2 units Insulin Detemir (Levemir) 5 units SUB-Q QHS [facility] Last Admin: 01/02/17 22:20 Dose: 5 units Metoclopramide HCl (Reglan) 10 mg IV Q8H PRN PRN Reason: Nausea And Vomiting Ondansetron HCl (Zofran) 4 mg IV Q8H PRN PRN Reason: N/V unrelieved by Reglan Last Admin: 01/02/17 09:20 Dose: 4 mg Review of Systems ROS unobtainable: due to mental status Exam - Vital Signs Vital signs: Vital Signs Pulse 100 H 12/31/16 21:10 - General Appearance General appearance: well-developed, well-nourished, appears stated age, obese, other (no distress) EENT: ATNC, PERRL, mucous membranes moist, hearing intact, vision intact Neck: Present: neck supple Respiratory: Clear to Ascultation Heart: regular, S1S2, no murmurs Gastrointestinal: Present: normoactive bowel sounds, tenderness, obese Integumentary: no rash Neurologic: no focal deficit, no asterixis, disoriented, CN 3-12 intact Musculoskeletal: Present: other (no edema) Psychiatric: mood/affect appropriate, cooperative Results - Lab Results 01/02/17 05:37 01/02/17 20:32 Most recent lab results Calcium 9.6 mg/dL (8.4-10.2) 01/02/17 20:32 Urine Creatinine 240.6 mg/dL (0.1-20.0) H 01/03/17 Unknown Urine Sodium 21 mEq/L 01/03/17 Unknown Assessment and Plan - Patient Problems (1) [place] (acute kidney injury) Current Visit: No Status: Acute Plan to address problem: Hemodynamic [place] in the setting of volume depletion. Continue IV fluids. Renal function is improving. Will follow. (2) Volume depletion Current Visit: No Status: Acute Plan to address problem: Continue IV fluids. (3) Hypotension Current Visit: No Status: Acute Qualifiers: Hypotension type: H Trimester: T Plan to address problem: BP is improving. (4) Altered mental status Current Visit: Yes Status: Acute Qualifiers: Altered mental status type: unspecified Coma depth: C Coma timing: C Qualified Code(s): R41.82 - Altered mental status, unspecified
[2017-01-03] MEDS ORDERED: LEVAQUIN 500MG/100ML 500 MG/100 ML BAG IV SCH (10:00)
[2017-01-03] MEDS: ROCEPHIN/NS 1 GM/50 ML 1 GM/50 ML BAG IV SCH (10:09)
--- NOTE | 2017-01-03 13:22 | Progress Note ---
Assessment and Plan Assessment and plan: Patient is a 55-year-old woman with a history of hypertension, diabetes mellitus type 2, coronary artery disease, hyperlipidemia and GERD was brought to the emergency room for confusion. The patient states that she is here because of abdominal pains, she is unable to give any detailed. Review of the chart shows that she has worsening renal function and elevated white count. 2v Abd XR read as unusual pelvic gas pattern, there is a somewhat unusual transverse shaped contained collection of gas just above the pubis. The bowel gas is otherwise unremarkable, no free air, no soft tissue mass per Dr. Baca. CT abdomen and pelvis without contrast was read as previously seen wall thickness and high attenuation material left renal pelvis and proximal ureter no longer present on today's exam, this may reflect a transient inflammatory process, there is a stable 2 mm nonobstructing left renal calculus , no obstructive uropathy or gross inflammatory changes of the renal collecting set system on today's exam, large and small bowel loops normal in caliber, appendix is not visualized, however there is no pericecal stranding or fluid to suggest an acute inflammation, mild aneurysmal dilatation visualized ascending thoracic aorta measuring 4.4 cm in diameter. -Acute renal failure, vasomotor nephropathy worsening: consulted Nephrology -SIRS, leukocytosis improved after starting on levaquin: stop Levaquin due to ARF, use iv rocephin empiric uti. Await culture -negative so far. Check chest xr-negative -Abdominal pain with nausea vomiting: antiemetic, clears. -Acute Encephalopathy most likely metabolic, resolving, d/c restraints: treat the renal failure -Hypertension, uncontrolled: iv prn antihypertensives, Continue to monitor -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 type 2: ssi -Hyperlipidemia: statin full code Disposition: Continue inpatient care, once renal function improves may be discharged Patient continues to have persistent severe abdominal pain which is out of proportion to exam; therefore, I will consult GI for their recommendation Anticipate discharge tomorrow if renal function continues to be steady History Interval history: Patient seen and examined. Follow up on current diagnosis/confusion. Overnight uneventful. No cp, sob, or severe headaches. Imaging, old records, testing, labs , nursing notes reviewed. Out of restraints. Patient complains of nausea vomiting. Generalized abdominal pain which is still present. Confusion has resolved. Hospitalist Physical - Physical exam Narrative exam: GEN: WDWN, NAD, AWAKE, ALERT, ORIENTATED x 3 HEENT: NCAT, PERRL, EOMI, OP CLEAR NECK: SUPPLE, NO THYROMEGALY, NO JVD, NO LAD CVS: RRR, NORMAL S1S2 LUNGS/CHEST: CTA B, NORMAL CHEST EXPANSION B, GOOD AIR ENTRY B ABD: SOFT, diffuse tenderness, GBS, NO REBOUND OR GUARDING EXT/SKIN: NO SIGNIFICANT EDEMA OR RASH MSK: FROM X 4 EXTREMITIES NEURO: CN 2-12 GROSSLY INTACT, NO FOCAL DEFICITS PSY: CALM - Constitutional Vitals: Temp Pulse Resp BP Pulse Ox 98.0 F 77 20 140/76 99 01/03/17 08:00 01/03/17 08:00 01/03/17 08:00 01/03/17 08:00 01/03/17 08:56 Results - Labs CBC & Chem 7: 01/02/17 05:37 01/02/17 20:32 Labs: Laboratory Last Values WBC 12.5 K/mm3 (4.5-11.0) H 01/02/17 05:37 RBC 4.56 M/mm3 (3.65-5.03) 01/02/17 05:37 Hgb 11.9 gm/dl (10.1-14.3) 01/02/17 05:37 Hct 37.1 % (30.3-42.9) 01/02/17 05:37 MCV 81 fl (79-97) 01/02/17 05:37 MCH 26 pg (28-32) L 01/02/17 05:37 MCHC 32 % (30-34) 01/02/17 05:37 RDW 16.2 % (13.2-15.2) H 01/02/17 05:37 Plt Count 400 K/mm3 (140-440) 01/02/17 05:37 Lymph % (Auto) 18.1 % (13.4-35.0) 01/02/17 05:37 [place] % (Auto) 11.4 % (0.0-7.3) H 01/02/17 05:37 Eos % (Auto) 0.9 % (0.0-4.3) 01/02/17 05:37 Baso % (Auto) 0.5 % (0.0-1.8) 01/02/17 05:37 Lymph # 2.3 K/mm3 (1.2-5.4) 01/02/17 05:37 [place] # 1.4 K/mm3 (0.0-0.8) H 01/02/17 05:37 Eos # 0.1 K/mm3 (0.0-0.4) 01/02/17 05:37 Baso # 0.1 K/mm3 (0.0-0.1) 01/02/17 05:37 Seg Neutrophils % 69.1 % (40.0-70.0) 01/02/17 05:37 Seg Neutrophils # 8.7 K/mm3 (1.8-7.7) H 01/02/17 05:37 PT 14.2 Sec. (12.2-14.9) 12/31/16 23:19 INR 1.11 (0.87-1.13) 12/31/16 23:19 APTT 32.0 Sec. (24.2-36.6) 12/31/16 23:19 Thrombin Time 18.8 Sec. (15.1-19.6) 12/31/16 23:19 Sodium 138 mmol/L (137-145) 01/02/17 20:32 Potassium 3.6 mmol/L (3.6-5.0) 01/02/17 20:32 Chloride 95.6 mmol/L (98-107) L 01/02/17 20:32 Carbon Dioxide 22 mmol/L (22-30) 01/02/17 20:32 Anion Gap 24 mmol/L 01/02/17 20:32 BUN 47 mg/dL (7-17) H 01/02/17 20:32 Creatinine 2.7 mg/dL (0.7-1.2) H 01/02/17 20:32 Estimated GFR 22 ml/min 01/02/17 20:32 BUN/Creatinine Ratio 17.40 % 01/02/17 20:32 Glucose 183 mg/dL (65-100) H 01/02/17 20:32 POC Glucose 191 (70-105) H 01/03/17 11:24 Hemoglobin A1c 13.9 % (4-6) H 01/01/17 18:11 Calcium 9.6 mg/dL (8.4-10.2) 01/02/17 20:32 Total Creatine Kinase 374 units/L (30-135) H 01/01/17 12:46 CK-MB (CK-2) 3.5 ng/mL (0.0-4.0) 01/01/17 12:46 CK-MB (CK-2) Rel Index 0.9 (0-4) 01/01/17 12:46 Troponin T 0.015 ng/mL (0.00-0.029) 01/01/17 12:46 Urine Color [place]ater[place] (Yellow) 12/31/16 22:30 Urine Turbidity Turbid (Clear) 12/31/16 22:30 Urine pH 5.0 (5.0-7.0) 12/31/16 22:30 Ur Specific [place] 1.026 (1.003-1.030) 12/31/16 22:30 Urine Protein 100 mg/dl mg/dL (Negative) 12/31/16 22:30 Urine Glucose (UA) 50 mg/dL (Negative) 12/31/16 22:30 Urine Ketones Tr mg/dL (Negative) 12/31/16 22:30 Urine Blood Sm (Negative) 12/31/16 22:30 Urine Nitrite Neg (Negative) 12/31/16 22:30 Urine Bilirubin Sm (Negative) 12/31/16 22:30 Urine Ictotest Negative (Negative) 12/31/16 22:30 Urine Urobilinogen 2.0 mg/dL (<2.0) 12/31/16 22:30 Ur Leukocyte Esterase Tr (Negative) 12/31/16 22:30 Urine WBC (Auto) < 1.0 /HPF (0.0-6.0) 12/31/16 22:30 Urine RBC (Auto) 5.0 /HPF (0.0-6.0) 12/31/16 22:30 U Epithel Cells (Auto) 13.0 /HPF (0-13.0) 12/31/16 22:30 Urine Bacteria (Auto) 2+ /HPF (Negative) 12/31/16 22:30 Hyaline Casts 20 /LPF 12/31/16 22:30 Urine Mucus 2+ /HPF 12/31/16 22:30 Urine Creatinine 240.6 mg/dL (0.1-20.0) H 01/03/17 Unknown Urine Sodium 21 mEq/L 01/03/17 Unknown Urine Opiates Screen Presumptive negative 12/31/16 22:30 Urine Methadone Screen Presumptive negative 12/31/16 22:30 Ur Barbiturates Screen Presumptive negative 12/31/16 22:30 Ur Phencyclidine Scrn Presumptive negative 12/31/16 22:30 Ur Amphetamines Screen Presumptive negative 12/31/16 22:30 U Benzodiazepines Scrn Presumptive negative 12/31/16 22:30 Urine Cocaine Screen Presumptive negative 12/31/16 22:30 U Marijuana (THC) Screen Presumptive negative 12/31/16 22:30 Drugs of Abuse Note Disclamer 12/31/16 22:30
[2017-01-03 16:44] LABS: Hematocrit 35.7 % (30.3-42.9); Hemoglobin 10.9 gm/dl (10.1-14.3); Mean Corpuscular HGB Conc 31 % (30-34); Mean Corpuscular Volume 82 fl (79-97); Platelet Count 367 K/mm3 (140-440); Red Blood Count 4.36 M/mm3 (3.65-5.03); Red Cell Distribution Width 15.9 % (13.2-15.2); White Blood Count 10.2 K/mm3 (4.5-11.0)
[2017-01-03 16:47] LABS: Mean Corpuscular Hemoglobin 25 pg (28-32)
[2017-01-03 17:03] LABS: Calcium 8.8 mg/dL (8.4-10.2); Chloride 97.2 mmol/L (98-107); Potassium 3.5 mmol/L (3.6-5.0)
--- NOTE | 2017-01-03 17:27 | Consultation ---
History of Present Illness - Reason for Consult Consult date: 01/03/17 abd pain - History of Present Illness 55 yo BF with multiple medical problems, including HTN, DM, CAD, GERD, A fib, CVA x 2 - most recently in 07/2016, admitted with AMS per ER notes. H&P states she had abd pain. Consult requested for abd pain, persistent. Pt states she has constant sharp lower abd pain x 2 months, worse with po intake of certain foods. Pt states she has also had N/V 3-4x/d during this time. No GI bleed. She states she has had 30# weight loss. I spoke by phone with pt's mother and , independently. They both states she did not complain of abd pain nor have N/V. They both state she is addicted to pain meds and she has complaints when she runs out. She was at [facility] last month, and apparently had a negative evaluation, details unknown. It is unclear if and when she had a colonoscopy. Mother states she has lost weight, but that she only wants to eat cookies, etc. Pt complains of constipation with BMs 1-2x/wk. Past History Past Medical History: diabetes, hypertension, hyperlipidemia, other (CVA x 2) Past Surgical History: appendectomy, cholecystectomy, hysterectomy Social history: Medications and Allergies Allergies Allergy/AdvReac Type Severity Reaction Status Date / Time morphine AdvReac Vomiting Verified 12/31/16 21:46 Home Medications Medication Instructions Recorded Confirmed Last Taken Type Magnesium Hydroxide [Milk of 30 ml PO Q4H PRN #30 oral.liqd 08/09/16 08/09/16 Unknown Rx Magnesia] Aspirin [Aspirin TAB] 325 mg PO QDAY #30 tablet 08/20/16 Unknown Rx AtorvaSTATin [Lipitor] 40 mg PO QHS #30 tablet 08/20/16 Unknown Rx Clopidogrel [Plavix] 75 mg PO QDAY #30 tablet 08/20/16 Unknown Rx Docusate Sodium [Colace CAP] 100 mg PO BID #60 capsule 08/20/16 Unknown Rx Insulin Detemir [Levemir] 18 units SUB-Q BID #1 vial 08/20/16 Unknown Rx Metoclopramide [Reglan TAB] 5 mg PO AC #90 tablet 08/20/16 Unknown Rx Nortriptyline [Pamelor] 50 mg PO QDAY #30 capsule 08/20/16 Unknown Rx Pantoprazole [Protonix TAB] 40 mg PO DAILY #30 tablet 08/20/16 Unknown Rx Sennosides Tab [Senokot] 8.6 mg PO QHS #30 tablet 08/20/16 Unknown Rx Sucralfate [Carafate] 1 gm PO HS #1 bottle 08/20/16 Unknown Rx cloNIDine [Catapres] 0.1 mg PO Q12HR #60 tablet 08/20/16 Unknown Rx hydrALAZINE [Apresoline TAB] 10 mg PO Q8HR #90 tablet 08/20/16 Unknown Rx oxyCODONE /ACETAMINOPHEN [Percocet 1 tab PO Q8HR PRN #30 tablet 08/21/16 Unknown Rx 5/325] Potassium Chloride [K-Dur] 40 meq PO QDAY #30 tablet 08/22/16 Unknown Rx Active Meds: Active Medications Acetaminophen (Tylenol) 650 mg PO Q4H PRN PRN Reason: Pain MILD(1-3)/Fever >100.5/GARCIA Last Admin: 01/02/17 06:02 Dose: 650 mg Bisacodyl (Dulcolax) 10 mg MS QDAY PRN PRN Reason: Constipation unrelieved by MOM Dextrose (D50w (25gm)) 50 ml IV PRN PRN PRN Reason: Hypoglycemia Hydromorphone HCl (Dilaudid) 0.5 mg IV Q3H PRN PRN Reason: Pain , Severe (7-10) Last Admin: 01/03/17 15:55 Dose: 0.5 mg Sodium Chloride (Nacl 0.45% 1000 Ml) 1,000 mls @ 75 mls/hr IV DIRECT ROSA Last Admin: 01/03/17 04:16 Dose: 75 mls/hr Ceftriaxone Sodium (Rocephin/Ns 1 Gm/50 Ml) 1 gm in 50 mls @ 100 mls/hr IV Q24HR ROSA PRN Reason: Protocol Last Admin: 01/03/17 10:09 Dose: 100 mls/hr Insulin Aspart (Novolog) 0 units SUB-Q ACHS ROSA PRN Reason: Protocol Last Admin: 01/03/17 13:09 Dose: 2 units Insulin Detemir (Levemir) 5 units SUB-Q QHS ROSA Last Admin: 01/02/17 22:20 Dose: 5 units Metoclopramide HCl (Reglan) 10 mg IV Q8H PRN PRN Reason: Nausea And Vomiting Ondansetron HCl (Zofran) 4 mg IV Q8H PRN PRN Reason: N/V unrelieved by Reglan Last Admin: 01/02/17 09:20 Dose: 4 mg Review of Systems All systems: negative Gastrointestinal: abdominal pain Exam - Constitutional Vitals: Temp Pulse Resp BP Pulse Ox 99.6 F 81 18 152/73 97 01/03/17 15:35 01/03/17 15:35 01/03/17 15:35 01/03/17 15:35 01/03/17 15:35 General appearance: Present: no acute distress - EENT Eyes: Present: PERRL, EOM intact ENT: hearing intact - Neck Neck: Present: supple - Respiratory Respiratory effort: normal Respiratory: bilateral: CTA - Cardiovascular Rhythm: regular Heart Sounds: Present: S1 & S2 - Abdominal General gastrointestinal: Present: soft, tender (Mild diffuse), normal bowel sounds Results - Labs CBC & Chem 7: 01/03/17 16:11 01/03/17 16:23 Labs: Abnormal lab results 01/02/17 01/03/17 01/03/17 Range/Units 20:32 06:12 11:24 MCH (28-32) pg RDW (13.2-15.2) % Sodium (137-145) mmol/L Potassium (3.6-5.0) mmol/L Chloride 95.6 L (98-107) mmol/L BUN 47 H (7-17) mg/dL Creatinine 2.7 H (0.7-1.2) mg/dL Glucose 183 H (65-100) mg/dL POC Glucose 156 H 191 H (70-105) TSH (0.270-4.200) mlU/mL Urine Creatinine (0.1-20.0) mg/dL 01/03/17 01/03/17 01/03/17 Range/Units 16:11 16:22 16:23 MCH 25 L (28-32) pg RDW 15.9 H (13.2-15.2) % Sodium 136 L (137-145) mmol/L Potassium 3.5 L (3.6-5.0) mmol/L Chloride 97.2 L (98-107) mmol/L BUN 34 H (7-17) mg/dL Creatinine 1.7 H (0.7-1.2) mg/dL Glucose 163 H (65-100) mg/dL POC Glucose (70-105) TSH 5.030 H (0.270-4.200) mlU/mL Urine Creatinine (0.1-20.0) mg/dL 01/03/17 01/03/17 Range/Units 16:24 Unknown MCH (28-32) pg RDW (13.2-15.2) % Sodium (137-145) mmol/L Potassium (3.6-5.0) mmol/L Chloride (98-107) mmol/L BUN (7-17) mg/dL Creatinine (0.7-1.2) mg/dL Glucose (65-100) mg/dL POC Glucose 186 H (70-105) TSH (0.270-4.200) mlU/mL Urine Creatinine 240.6 H (0.1-20.0) mg/dL Assessment and Plan 1. Abd pain - etiology unclear. Labs and CT unrevealing. Exam relatively benign, and pt not in significant distress. Pain may be due to narcotic withdrawal. Ischemia much less likely given chronicity of pain, but will review CT and consider mesenteric evaluation. Can consider colonoscopy, but no clear symptoms related to LGI tract.
[2017-01-03] MEDS: LEVEMIR SUB-Q SCH (22:10)
[2017-01-04] MEDS: DILAUDID IV PRN ×4 (04:32→20:19)
[2017-01-04 05:03] LABS: Albumin 3.2 g/dL (3.9-5); Albumin/Globulin Ratio 0.8 %; BUN/Creatinine Ratio 20.83; Bilirubin,Total 0.7 mg/dL (0.1-1.2); Calcium 9.1 mg/dL (8.4-10.2); Chloride 99.1 mmol/L (98-107); Magnesium 2.3 mg/dL (1.7-2.3); Phosphorous 2.9 mg/dL (2.5-4.5); Potassium 3.9 mmol/L (3.6-5.0); Total Protein 7.1 g/dL (6.3-8.2)
[2017-01-04 06:34] LABS: Hematocrit 35.4 % (30.3-42.9); Hemoglobin 11.2 gm/dl (10.1-14.3); Mean Corpuscular HGB Conc 32 % (30-34); Mean Corpuscular Volume 82 fl (79-97); Platelet Count 342 K/mm3 (140-440); Red Blood Count 4.34 M/mm3 (3.65-5.03); Red Cell Distribution Width 15.8 % (13.2-15.2); White Blood Count 8.2 K/mm3 (4.5-11.0)
[2017-01-04 06:40] LABS: Mean Corpuscular Hemoglobin 26 pg (28-32)
[2017-01-04] MEDS: NOVOLOG SUB-Q SCH ×4 (08:00→23:26)
--- NOTE | 2017-01-04 09:18 | Progress Note ---
Assessment and Plan - Patient Problems (1) MADISON (acute kidney injury) Current Visit: No Status: Acute Plan to address problem: Hemodynamic MADISON in the setting of volume depletion. Continue IV fluids. Renal function continue to improve. Will follow. (2) Volume depletion Current Visit: No Status: Acute Plan to address problem: Continue IV fluids. (3) Hypotension Current Visit: No Status: Acute Qualifiers: Hypotension type: H Trimester: T Plan to address problem: Improved. (4) Altered mental status Current Visit: Yes Status: Acute Qualifiers: Altered mental status type: unspecified Coma depth: C Coma timing: C Qualified Code(s): R41.82 - Altered mental status, unspecified Plan to address problem: Improving. Subjective Date of service: 01/04/17 Interval history: Patient is feeling better. Objective - Vital Signs Vital signs: Vital Signs - 12hr 01/03/17 01/04/17 01/04/17 23:35 05:00 07:00 Temperature 98.6 F 98.2 F 98.1 F Pulse Rate 74 80 74 Respiratory 18 18 20 Rate Blood Pressure 147/76 146/77 167/85 O2 Sat by Pulse 99 98 100 Oximetry - General Appearance General appearance: well-developed, appears stated age, obese, other (no distress) EENT: ATNC, PERRL, mucous membranes moist, hearing intact, vision intact Neck: supple Respiratory: Present: Clear to Ascultation Cardiology: regular, S1S2, no murmurs Gastrointestinal: normoactive bowel sounds, no tenderness, no distended, obese Integumentary: no rash Neurologic: no focal deficit, no asterixis, alert and oriented x3, CN 3-12 intact, other (speech is slurred) Musculoskeletal: other (no edema) Psychiatric: mood/affect appropriate, cooperative - Lab 01/05/17 06:20 01/05/17 06:20 Most recent lab results Calcium 9.1 mg/dL (8.4-10.2) 01/04/17 04:16 Phosphorus 2.90 mg/dL (2.5-4.5) 01/04/17 04:16 Magnesium 2.30 mg/dL (1.7-2.3) 01/04/17 04:16 Urine Creatinine 240.6 mg/dL (0.1-20.0) H 01/03/17 Unknown Urine Sodium 21 mEq/L 01/03/17 Unknown
[2017-01-04] MEDS: NACL 0.45% 1000 ML 1,000 ML IV SCH (09:56)
[2017-01-04] MEDS: ROCEPHIN/NS 1 GM/50 ML 1 GM/50 ML BAG IV SCH (10:00)
--- NOTE | 2017-01-04 11:20 | Gastroenterology Progress Note ---
<BETHANIE ADAMES - Last Filed: 01/04/17 11:15> Assessment and Plan 1.Abd pain -afebrile -WBC-WNL -etiology unclear- possibly due to narcotic withdrawal vs ischemia (less likely given chronic pain) -labs and CT unrevealing -MRA-pending -clinically pt is improved- denies abd pain or N/V today and is asking to eat -clear liquid diet after MRA today -will follow Subjective Date of service: 01/04/17 Principal diagnosis: Abd pain Interval history: Patient resting in be. No acute distress noted. c/o being hungry. Denies abd pain or N/V today. Objective - Constitutional Vitals: Temp Pulse Resp BP Pulse Ox 98.1 F 74 20 167/85 100 01/04/17 07:00 01/04/17 07:00 01/04/17 07:00 01/04/17 07:00 01/04/17 07:00 General appearance: no acute distress, obese - EENT Eyes: PERRL, EOM intact ENT: hearing intact - Neck Neck: supple, normal ROM - Respiratory Respiratory: bilateral: CTA - Cardiovascular Rhythm: regular Heart Sounds: Present: S1 & S2 - Extremities Extremities: No edema - Gastrointestinal General gastrointestinal: Present: soft, tender (generalized), non-distended, normal bowel sounds - Integumentary Integumentary: Present: warm, dry - Neurologic Neurological: oriented to person - Psychiatric Psychiatric: cooperative - Labs CBC & Chem 7: 01/04/17 05:46 01/04/17 04:16 Labs: Laboratory Results - last 24 hr 01/03/17 01/03/17 01/03/17 11:24 16:11 16:22 WBC 10.2 RBC 4.36 Hgb 10.9 Hct 35.7 MCV 82 MCH 25 L MCHC 31 RDW 15.9 H Plt Count 367 Sodium Potassium Chloride Carbon Dioxide Anion Gap BUN Creatinine Estimated GFR BUN/Creatinine Ratio Glucose POC Glucose 191 H Calcium Phosphorus Magnesium Total Bilirubin AST ALT Alkaline Phosphatase Total Protein Albumin Albumin/Globulin Ratio TSH 5.030 H Plasma/Serum Alcohol 01/03/17 01/03/17 01/03/17 16:23 16:24 21:50 WBC RBC Hgb Hct MCV MCH MCHC RDW Plt Count Sodium 136 L Potassium 3.5 L Chloride 97.2 L Carbon Dioxide 23 Anion Gap 19 BUN 34 H Creatinine 1.7 H Estimated GFR 38 BUN/Creatinine Ratio 20.00 Glucose 163 H POC Glucose 186 H 236 H Calcium 8.8 Phosphorus Magnesium Total Bilirubin AST ALT Alkaline Phosphatase Total Protein Albumin Albumin/Globulin Ratio TSH Plasma/Serum Alcohol 01/04/17 01/04/17 01/04/17 04:16 04:16 05:46 WBC 8.2 RBC 4.34 Hgb 11.2 Hct 35.4 MCV 82 MCH 26 L MCHC 32 RDW 15.8 H Plt Count 342 Sodium 138 Potassium 3.9 Chloride 99.1 Carbon Dioxide 23 Anion Gap 20 BUN 25 H Creatinine 1.2 Estimated GFR 57 BUN/Creatinine Ratio 20.83 Glucose 149 H POC Glucose Calcium 9.1 Phosphorus 2.90 Magnesium 2.30 Total Bilirubin 0.70 AST 19 ALT 16 Alkaline Phosphatase 188 H Total Protein 7.1 Albumin 3.2 L Albumin/Globulin Ratio 0.8 TSH Plasma/Serum Alcohol < 0.01 01/04/17 06:48 WBC RBC Hgb Hct MCV MCH MCHC RDW Plt Count Sodium Potassium Chloride Carbon Dioxide Anion Gap BUN Creatinine Estimated GFR BUN/Creatinine Ratio Glucose POC Glucose 162 H Calcium Phosphorus Magnesium Total Bilirubin AST ALT Alkaline Phosphatase Total Protein Albumin Albumin/Globulin Ratio TSH Plasma/Serum Alcohol <MARGUERITE CHEUNG R - Last Filed: 01/04/17 14:12> Assessment and Plan Pt feels well. Hungry. F/u MRA. If okay, can D/C pt to home. Objective - Constitutional Vitals: Temp Pulse Resp BP Pulse Ox 98.1 F 74 20 167/85 100 01/04/17 07:00 01/04/17 07:00 01/04/17 07:00 01/04/17 07:00 01/04/17 07:00 - Labs CBC & Chem 7: 01/04/17 05:46 01/04/17 04:16 Labs: Laboratory Results - last 24 hr 01/03/17 01/03/17 01/03/17 16:11 16:22 16:23 WBC 10.2 RBC 4.36 Hgb 10.9 Hct 35.7 MCV 82 MCH 25 L MCHC 31 RDW 15.9 H Plt Count 367 Sodium 136 L Potassium 3.5 L Chloride 97.2 L Carbon Dioxide 23 Anion Gap 19 BUN 34 H Creatinine 1.7 H Estimated GFR 38 BUN/Creatinine Ratio 20.00 Glucose 163 H POC Glucose Calcium 8.8 Phosphorus Magnesium Total Bilirubin AST ALT Alkaline Phosphatase Total Protein Albumin Albumin/Globulin Ratio TSH 5.030 H Plasma/Serum Alcohol 01/03/17 01/03/17 01/04/17 16:24 21:50 04:16 WBC RBC Hgb Hct MCV MCH MCHC RDW Plt Count Sodium Potassium Chloride Carbon Dioxide Anion Gap BUN Creatinine Estimated GFR BUN/Creatinine Ratio Glucose POC Glucose 186 H 236 H Calcium Phosphorus Magnesium Total Bilirubin AST ALT Alkaline Phosphatase Total Protein Albumin Albumin/Globulin Ratio TSH Plasma/Serum Alcohol < 0.01 01/04/17 01/04/17 01/04/17 04:16 05:46 06:48 WBC 8.2 RBC 4.34 Hgb 11.2 Hct 35.4 MCV 82 MCH 26 L MCHC 32 RDW 15.8 H Plt Count 342 Sodium 138 Potassium 3.9 Chloride 99.1 Carbon Dioxide 23 Anion Gap 20 BUN 25 H Creatinine 1.2 Estimated GFR 57 BUN/Creatinine Ratio 20.83 Glucose 149 H POC Glucose 162 H Calcium 9.1 Phosphorus 2.90 Magnesium 2.30 Total Bilirubin 0.70 AST 19 ALT 16 Alkaline Phosphatase 188 H Total Protein 7.1 Albumin 3.2 L Albumin/Globulin Ratio 0.8 TSH Plasma/Serum Alcohol 01/04/17 11:34 WBC RBC Hgb Hct MCV MCH MCHC RDW Plt Count Sodium Potassium Chloride Carbon Dioxide Anion Gap BUN Creatinine Estimated GFR BUN/Creatinine Ratio Glucose POC Glucose 168 H Calcium Phosphorus Magnesium Total Bilirubin AST ALT Alkaline Phosphatase Total Protein Albumin Albumin/Globulin Ratio TSH Plasma/Serum Alcohol
--- NOTE | 2017-01-04 19:21 | Progress Note ---
Assessment and Plan Assessment and plan: 1. Acute renal failure Likely vasomotor nephropathy due to volume depletion Improving with iv fluids Nephrology following 2. Acute metabolic encephalopathy Improving 3. Abdominal pain - acute on chronic Labs and CT abd unrevealing Gi consulted and managing - ordered abdominal MRA to r/o ischemia even though is chronic; diff - narcotic withdrawal 4. HTN BP uncontrolled Adjusdt regimen 5. DM Accu checks and SSI 6. HPL On statin 7. Chronic pain syndrome Decreasing narcotic doses, adjusting regimen 7. DVT prophylaxis History Interval history: feeling better, abdominal pain improved, scheduled for abd MRA Hospitalist Physical - Constitutional Vitals: Temp Pulse Resp BP Pulse Ox 98.4 F 68 19 156/78 100 01/04/17 16:00 01/04/17 16:00 01/04/17 16:00 01/04/17 16:00 01/04/17 07:00 General appearance: Present: no acute distress, obese - EENT Eyes: Present: PERRL, EOM intact. Absent: scleral icterus, conjunctival injection - Neck Neck: Present: supple, normal ROM. Absent: masses or JVD - Respiratory Respiratory effort: normal Respiratory: bilateral: CTA, negative: rhonchi, wheezing - Cardiovascular Rhythm: regular Heart Sounds: Present: S1 & S2. Absent: systolic murmur - Extremities Extremities: no ischemia - Abdominal General gastrointestinal: soft, tender, non-distended, normal bowel sounds Localized gastrointestinal: tender: epigastric periumbilical - Psychiatric Psychiatric: no intact judgment & insight, cooperative - Neurologic Neurologic: CNII-XII intact, no focal deficits Results - Labs CBC & Chem 7: 01/05/17 06:20 01/06/17 06:09 Labs: Laboratory Last Values WBC 8.2 K/mm3 (4.5-11.0) 01/04/17 05:46 RBC 4.34 M/mm3 (3.65-5.03) 01/04/17 05:46 Hgb 11.2 gm/dl (10.1-14.3) 01/04/17 05:46 Hct 35.4 % (30.3-42.9) 01/04/17 05:46 MCV 82 fl (79-97) 01/04/17 05:46 MCH 26 pg (28-32) L 01/04/17 05:46 MCHC 32 % (30-34) 01/04/17 05:46 RDW 15.8 % (13.2-15.2) H 01/04/17 05:46 Plt Count 342 K/mm3 (140-440) 01/04/17 05:46 Lymph % (Auto) 18.1 % (13.4-35.0) 01/02/17 05:37 [place] % (Auto) 11.4 % (0.0-7.3) H 01/02/17 05:37 Eos % (Auto) 0.9 % (0.0-4.3) 01/02/17 05:37 Baso % (Auto) 0.5 % (0.0-1.8) 01/02/17 05:37 Lymph # 2.3 K/mm3 (1.2-5.4) 01/02/17 05:37 [place] # 1.4 K/mm3 (0.0-0.8) H 01/02/17 05:37 Eos # 0.1 K/mm3 (0.0-0.4) 01/02/17 05:37 Baso # 0.1 K/mm3 (0.0-0.1) 01/02/17 05:37 Seg Neutrophils % 69.1 % (40.0-70.0) 01/02/17 05:37 Seg Neutrophils # 8.7 K/mm3 (1.8-7.7) H 01/02/17 05:37 PT 14.2 Sec. (12.2-14.9) 12/31/16 23:19 INR 1.11 (0.87-1.13) 12/31/16 23:19 APTT 32.0 Sec. (24.2-36.6) 12/31/16 23:19 Thrombin Time 18.8 Sec. (15.1-19.6) 12/31/16 23:19 Sodium 138 mmol/L (137-145) 01/04/17 04:16 Potassium 3.9 mmol/L (3.6-5.0) 01/04/17 04:16 Chloride 99.1 mmol/L (98-107) 01/04/17 04:16 Carbon Dioxide 23 mmol/L (22-30) 01/04/17 04:16 Anion Gap 20 mmol/L 01/04/17 04:16 BUN 25 mg/dL (7-17) H 01/04/17 04:16 Creatinine 1.2 mg/dL (0.7-1.2) 01/04/17 04:16 Estimated GFR 57 ml/min 01/04/17 04:16 BUN/Creatinine Ratio 20.83 % 01/04/17 04:16 Glucose 149 mg/dL (65-100) H 01/04/17 04:16 POC Glucose 168 (70-105) H 01/04/17 11:34 Hemoglobin A1c 13.9 % (4-6) H 01/01/17 18:11 Calcium 9.1 mg/dL (8.4-10.2) 01/04/17 04:16 Phosphorus 2.90 mg/dL (2.5-4.5) 01/04/17 04:16 Magnesium 2.30 mg/dL (1.7-2.3) 01/04/17 04:16 Total Bilirubin 0.70 mg/dL (0.1-1.2) 01/04/17 04:16 AST 19 units/L (5-40) 01/04/17 04:16 ALT 16 units/L (7-56) 01/04/17 04:16 Alkaline Phosphatase 188 units/L (35-129) H 01/04/17 04:16 Total Creatine Kinase 374 units/L (30-135) H 01/01/17 12:46 CK-MB (CK-2) 3.5 ng/mL (0.0-4.0) 01/01/17 12:46 CK-MB (CK-2) Rel Index 0.9 (0-4) 01/01/17 12:46 Troponin T 0.015 ng/mL (0.00-0.029) 01/01/17 12:46 Total Protein 7.1 g/dL (6.3-8.2) 01/04/17 04:16 Albumin 3.2 g/dL (3.9-5) L 01/04/17 04:16 Albumin/Globulin Ratio 0.8 % 01/04/17 04:16 TSH 5.030 mlU/mL (0.270-4.200) H 01/03/17 16:22 Urine Color Kateryna (Yellow) 12/31/16 22:30 Urine Turbidity Turbid (Clear) 12/31/16 22:30 Urine pH 5.0 (5.0-7.0) 12/31/16 22:30 Ur Specific [place] 1.026 (1.003-1.030) 12/31/16 22:30 Urine Protein 100 mg/dl mg/dL (Negative) 12/31/16 22:30 Urine Glucose (UA) 50 mg/dL (Negative) 12/31/16 22:30 Urine Ketones Tr mg/dL (Negative) 12/31/16 22:30 Urine Blood Sm (Negative) 12/31/16 22:30 Urine Nitrite Neg (Negative) 12/31/16 22:30 Urine Bilirubin Sm (Negative) 12/31/16 22:30 Urine Ictotest Negative (Negative) 12/31/16 22:30 Urine Urobilinogen 2.0 mg/dL (<2.0) 12/31/16 22:30 Ur Leukocyte Esterase Tr (Negative) 12/31/16 22:30 Urine WBC (Auto) < 1.0 /HPF (0.0-6.0) 12/31/16 22:30 Urine RBC (Auto) 5.0 /HPF (0.0-6.0) 12/31/16 22:30 U Epithel Cells (Auto) 13.0 /HPF (0-13.0) 12/31/16 22:30 Urine Bacteria (Auto) 2+ /HPF (Negative) 12/31/16 22:30 Hyaline Casts 20 /LPF 12/31/16 22:30 Urine Mucus 2+ /HPF 12/31/16 22:30 Urine Creatinine 240.6 mg/dL (0.1-20.0) H 01/03/17 Unknown Urine Sodium 21 mEq/L 01/03/17 Unknown Urine Opiates Screen Presumptive negative 12/31/16 22:30 Urine Methadone Screen Presumptive negative 12/31/16 22:30 Ur Barbiturates Screen Presumptive negative 12/31/16 22:30 Ur Phencyclidine Scrn Presumptive negative 12/31/16 22:30 Ur Amphetamines Screen Presumptive negative 12/31/16 22:30 U Benzodiazepines Scrn Presumptive negative 12/31/16 22:30 Urine Cocaine Screen Presumptive negative 12/31/16 22:30 U Marijuana (THC) Screen Presumptive negative 12/31/16 22:30 Drugs of Abuse Note Disclamer 12/31/16 22:30 Plasma/Serum Alcohol < 0.01 gm% (0-0.07) 01/04/17 04:16
--- NOTE | 2017-01-04 19:55 | Magnetic Resonance Report ---
FINAL REPORT PROCEDURE: MR MRA/MRV ABD WO/W CON TECHNIQUE: Magnetic resonance angiography of the abdomen was performed using standard pulse sequences before and after the IV injection of ml paramagnetic contrast. HISTORY: abd pain, r/o mesenteric ischemia COMPARISON: CT 01/01/2017 FINDINGS: Kidneys: Normal. Right renal artery(s): Minimal luminal irregularity of the proximal artery, without significant focal stenosis Left renal artery(s): Normal. Celiac axis: Patent. Superior Mesenteric Artery: Patent. Inferior Mesenteric Artery: Patent. Abnormal Enhancement: None. IMPRESSION: Mesenteric arteries are patent, without significant focal stenosis or occlusion.
[2017-01-04] MEDS: LEVEMIR SUB-Q SCH (23:26)
[2017-01-05] MEDS: DILAUDID IV PRN ×6 (00:40→21:43)
[2017-01-05 06:58] LABS: Hematocrit 36.7 % (30.3-42.9); Hemoglobin 11.4 gm/dl (10.1-14.3); Mean Corpuscular HGB Conc 31 % (30-34); Mean Corpuscular Volume 82 fl (79-97); Platelet Count 338 K/mm3 (140-440); Red Blood Count 4.45 M/mm3 (3.65-5.03); Red Cell Distribution Width 16.1 % (13.2-15.2); White Blood Count 8.4 K/mm3 (4.5-11.0)
[2017-01-05 07:01] LABS: Anion Gap 18 mmol/L; Blood Urea Nitrogen 14 mg/dL (7-17); Calcium 9.2 mg/dL (8.4-10.2); Carbon Dioxide 24 mmol/L (22-30); Chloride 96.4 mmol/L (98-107); Glucose 156 mg/dL (65-100); Potassium 3.5 mmol/L (3.6-5.0); Sodium 135 mmol/L (137-145)
[2017-01-05 07:17] LABS: Mean Corpuscular Hemoglobin 26 pg (28-32)
[2017-01-05] MEDS ORDERED: K-DUR PO ONE (08:41)
--- NOTE | 2017-01-05 08:41 | Progress Note ---
Assessment and Plan - Patient Problems (1) MADISON (acute kidney injury) Current Visit: No Status: Acute Plan to address problem: Hemodynamic MADISON in the setting of volume depletion. Renal function has improved. Replete K. Will follow. (2) Volume depletion Current Visit: No Status: Acute Plan to address problem: Continue IV fluids. (3) Hypertension, uncontrolled Current Visit: No Status: Acute Plan to address problem: Decrease IV fluids. Start on Hydralazine. (4) Altered mental status Current Visit: Yes Status: Acute Qualifiers: Altered mental status type: unspecified Coma depth: C Coma timing: C Qualified Code(s): R41.82 - Altered mental status, unspecified Plan to address problem: Improving. Subjective Date of service: 01/05/17 Principal diagnosis: Abd pain Interval history: Patient is feeling better. Objective - Vital Signs Vital signs: Vital Signs - 12hr 01/04/17 01/05/17 01/05/17 21:00 00:00 00:40 Temperature 97.5 F L Pulse Rate 66 Pulse Rate [ 66 Apical] Respiratory 18 18 Rate Blood Pressure 149/80 O2 Sat by Pulse 99 Oximetry 01/05/17 01/05/17 07:00 07:42 Temperature 98.2 F Pulse Rate 81 Pulse Rate [ Apical] Respiratory 20 20 Rate Blood Pressure 174/81 O2 Sat by Pulse 98 Oximetry - General Appearance General appearance: well-developed, appears stated age, obese, other (no distress) EENT: ATNC, PERRL, mucous membranes moist, hearing intact, vision intact Neck: supple Respiratory: Present: Clear to Ascultation Cardiology: regular, S1S2, no murmurs Gastrointestinal: normoactive bowel sounds, no tenderness, obese Integumentary: no rash Neurologic: no focal deficit, no asterixis, alert and oriented x3, CN 3-12 intact, other (speech slurred) Musculoskeletal: other (no edema) Psychiatric: mood/affect appropriate, cooperative - Lab 01/05/17 06:20 01/05/17 06:20 Most recent lab results Calcium 9.2 mg/dL (8.4-10.2) 01/05/17 06:20 Phosphorus 2.90 mg/dL (2.5-4.5) 01/04/17 04:16 Magnesium 2.30 mg/dL (1.7-2.3) 01/04/17 04:16 Urine Creatinine 240.6 mg/dL (0.1-20.0) H 01/03/17 Unknown Urine Sodium 21 mEq/L 01/03/17 Unknown
[2017-01-05] MEDS: NOVOLOG SUB-Q SCH ×3 (08:52→16:48)
[2017-01-05] MEDS: NACL 0.45% 1000 ML 1,000 ML IV SCH (08:56)
[2017-01-05] MEDS: ROCEPHIN/NS 1 GM/50 ML 1 GM/50 ML BAG IV SCH (09:20)
[2017-01-05] MEDS: APRESOLINE PO SCH ×3 (11:39→21:43)
--- NOTE | 2017-01-05 20:36 | Progress Note ---
Assessment and Plan Assessment and plan: 1. Acute renal failure Likely vasomotor nephropathy due to volume depletion Resolved with iv fluids 2. Acute metabolic encephalopathy Resolved 3. Abdominal pain - chronic Labs and CT abd unrevealing MRA excluded ischemia Gi following 4. HTN Regimen adjusted and BP better controlled now Continue to monitor 5. DM Accu checks and SSI 6. HPL On statin 7. Chronic pain syndrome Decreasing narcotic doses, adjusting regimen 7. DVT prophylaxis History Interval history: doing well, no abdominal pain, tolerating diet Hospitalist Physical - Constitutional Vitals: Temp Pulse Resp BP Pulse Ox 99.0 F 83 20 194/80 98 01/05/17 16:00 01/05/17 16:00 01/05/17 16:00 01/05/17 16:00 01/05/17 07:00 General appearance: Present: no acute distress, obese - EENT Eyes: Present: PERRL, EOM intact. Absent: scleral icterus, conjunctival injection - Neck Neck: Present: supple, normal ROM. Absent: masses or JVD - Respiratory Respiratory effort: normal Respiratory: bilateral: CTA, negative: rhonchi, wheezing - Cardiovascular Rhythm: regular Heart Sounds: Present: S1 & S2. Absent: systolic murmur - Extremities Extremities: no ischemia - Abdominal General gastrointestinal: soft, non-tender, non-distended, normal bowel sounds - Psychiatric Psychiatric: cooperative - Neurologic Neurologic: CNII-XII intact, no focal deficits Results - Labs CBC & Chem 7: 01/05/17 06:20 01/06/17 06:09 Labs: Laboratory Last Values WBC 8.4 K/mm3 (4.5-11.0) 01/05/17 06:20 RBC 4.45 M/mm3 (3.65-5.03) 01/05/17 06:20 Hgb 11.4 gm/dl (10.1-14.3) 01/05/17 06:20 Hct 36.7 % (30.3-42.9) 01/05/17 06:20 MCV 82 fl (79-97) 01/05/17 06:20 MCH 26 pg (28-32) L 01/05/17 06:20 MCHC 31 % (30-34) 01/05/17 06:20 RDW 16.1 % (13.2-15.2) H 01/05/17 06:20 Plt Count 338 K/mm3 (140-440) 01/05/17 06:20 Lymph % (Auto) 18.1 % (13.4-35.0) 01/02/17 05:37 [place] % (Auto) 11.4 % (0.0-7.3) H 01/02/17 05:37 Eos % (Auto) 0.9 % (0.0-4.3) 01/02/17 05:37 Baso % (Auto) 0.5 % (0.0-1.8) 01/02/17 05:37 Lymph # 2.3 K/mm3 (1.2-5.4) 01/02/17 05:37 [place] # 1.4 K/mm3 (0.0-0.8) H 01/02/17 05:37 Eos # 0.1 K/mm3 (0.0-0.4) 01/02/17 05:37 Baso # 0.1 K/mm3 (0.0-0.1) 01/02/17 05:37 Seg Neutrophils % 69.1 % (40.0-70.0) 01/02/17 05:37 Seg Neutrophils # 8.7 K/mm3 (1.8-7.7) H 01/02/17 05:37 PT 14.2 Sec. (12.2-14.9) 12/31/16 23:19 INR 1.11 (0.87-1.13) 12/31/16 23:19 APTT 32.0 Sec. (24.2-36.6) 12/31/16 23:19 Thrombin Time 18.8 Sec. (15.1-19.6) 12/31/16 23:19 Sodium 135 mmol/L (137-145) L 01/05/17 06:20 Potassium 3.5 mmol/L (3.6-5.0) L 01/05/17 06:20 Chloride 96.4 mmol/L (98-107) L 01/05/17 06:20 Carbon Dioxide 24 mmol/L (22-30) 01/05/17 06:20 Anion Gap 18 mmol/L 01/05/17 06:20 BUN 14 mg/dL (7-17) 01/05/17 06:20 Creatinine 1.0 mg/dL (0.7-1.2) 01/05/17 06:20 Estimated GFR > 60 ml/min 01/05/17 06:20 BUN/Creatinine Ratio 14.00 % 01/05/17 06:20 Glucose 156 mg/dL (65-100) H 01/05/17 06:20 POC Glucose 143 (70-105) H 01/05/17 15:58 Hemoglobin A1c 13.9 % (4-6) H 01/01/17 18:11 Calcium 9.2 mg/dL (8.4-10.2) 01/05/17 06:20 Phosphorus 2.90 mg/dL (2.5-4.5) 01/04/17 04:16 Magnesium 2.30 mg/dL (1.7-2.3) 01/04/17 04:16 Total Bilirubin 0.70 mg/dL (0.1-1.2) 01/04/17 04:16 AST 19 units/L (5-40) 01/04/17 04:16 ALT 16 units/L (7-56) 01/04/17 04:16 Alkaline Phosphatase 188 units/L (35-129) H 01/04/17 04:16 Total Creatine Kinase 374 units/L (30-135) H 01/01/17 12:46 CK-MB (CK-2) 3.5 ng/mL (0.0-4.0) 01/01/17 12:46 CK-MB (CK-2) Rel Index 0.9 (0-4) 01/01/17 12:46 Troponin T 0.015 ng/mL (0.00-0.029) 01/01/17 12:46 Total Protein 7.1 g/dL (6.3-8.2) 01/04/17 04:16 Albumin 3.2 g/dL (3.9-5) L 01/04/17 04:16 Albumin/Globulin Ratio 0.8 % 01/04/17 04:16 TSH 5.030 mlU/mL (0.270-4.200) H 01/03/17 16:22 Urine Color K[place] (Yellow) 12/31/16 22:30 Urine Turbidity Turbid (Clear) 12/31/16 22:30 Urine pH 5.0 (5.0-7.0) 12/31/16 22:30 Ur Specific [place] 1.026 (1.003-1.030) 12/31/16 22:30 Urine Protein 100 mg/dl mg/dL (Negative) 12/31/16 22:30 Urine Glucose (UA) 50 mg/dL (Negative) 12/31/16 22:30 Urine Ketones Tr mg/dL (Negative) 12/31/16 22:30 Urine Blood Sm (Negative) 12/31/16 22:30 Urine Nitrite Neg (Negative) 12/31/16 22:30 Urine Bilirubin Sm (Negative) 12/31/16 22:30 Urine Ictotest Negative (Negative) 12/31/16 22:30 Urine Urobilinogen 2.0 mg/dL (<2.0) 12/31/16 22:30 Ur Leukocyte Esterase Tr (Negative) 12/31/16 22:30 Urine WBC (Auto) < 1.0 /HPF (0.0-6.0) 12/31/16 22:30 Urine RBC (Auto) 5.0 /HPF (0.0-6.0) 12/31/16 22:30 U Epithel Cells (Auto) 13.0 /HPF (0-13.0) 12/31/16 22:30 Urine Bacteria (Auto) 2+ /HPF (Negative) 12/31/16 22:30 Hyaline Casts 20 /LPF 12/31/16 22:30 Urine Mucus 2+ /HPF 12/31/16 22:30 Urine Creatinine 240.6 mg/dL (0.1-20.0) H 01/03/17 Unknown Urine Sodium 21 mEq/L 01/03/17 Unknown Urine Opiates Screen Presumptive negative 12/31/16 22:30 Urine Methadone Screen Presumptive negative 12/31/16 22:30 Ur Barbiturates Screen Presumptive negative 12/31/16 22:30 Ur Phencyclidine Scrn Presumptive negative 12/31/16 22:30 Ur Amphetamines Screen Presumptive negative 12/31/16 22:30 U Benzodiazepines Scrn Presumptive negative 12/31/16 22:30 Urine Cocaine Screen Presumptive negative 12/31/16 22:30 U Marijuana (THC) Screen Presumptive negative 12/31/16 22:30 Drugs of Abuse Note Disclamer 12/31/16 22:30 Plasma/Serum Alcohol < 0.01 gm% (0-0.07) 01/04/17 04:16
[2017-01-06] MEDS: NOVOLOG SUB-Q SCH ×3 (00:12→12:42)
[2017-01-06] MEDS: LEVEMIR SUB-Q SCH (00:13)
[2017-01-06] MEDS: DILAUDID IV PRN ×4 (01:30→12:27)
[2017-01-06 06:58] LABS: Anion Gap 17 mmol/L; Blood Urea Nitrogen 9 mg/dL (7-17); Calcium 8.7 mg/dL (8.4-10.2); Carbon Dioxide 23 mmol/L (22-30); Chloride 98.2 mmol/L (98-107); Glucose 142 mg/dL (65-100); Potassium 3.5 mmol/L (3.6-5.0); Sodium 135 mmol/L (137-145)
[2017-01-06] MEDS ORDERED: K-DUR PO ONE (09:17)
--- NOTE | 2017-01-06 09:17 | Progress Note ---
Assessment and Plan - Patient Problems (1) MADISON (acute kidney injury) Status: Acute Plan to address problem: Hemodynamic MADISON in the setting of volume depletion. Renal function has improved. Replete K. (2) Volume depletion Status: Acute Plan to address problem: Improved. (3) Hypertension, uncontrolled Status: Acute Plan to address problem: BP is better. (4) Altered mental status Status: Acute Qualifiers: Altered mental status type: unspecified Coma depth: C Coma timing: C Qualified Code(s): R41.82 - Altered mental status, unspecified Plan to address problem: Improving. Subjective Date of service: 01/06/17 Principal diagnosis: Abd pain Interval history: Patient is feeling better. Objective - Vital Signs Vital signs: Vital Signs - 12hr 01/05/17 01/06/17 01/06/17 21:43 00:00 01:30 Temperature 98.8 F Pulse Rate 86 86 Respiratory 20 20 18 Rate Blood Pressure 168/80 166/79 O2 Sat by Pulse 100 Oximetry 01/06/17 01/06/17 05:44 07:00 Temperature 98.5 F Pulse Rate 86 Respiratory 18 20 Rate Blood Pressure 142/82 O2 Sat by Pulse 97 Oximetry - General Appearance General appearance: well-developed, well-nourished, appears stated age, obese, other (no distress) EENT: ATNC, PERRL, mucous membranes moist, hearing intact, vision intact Neck: no JVD, supple Respiratory: Present: Clear to Ascultation Cardiology: regular, S1S2, no murmurs Gastrointestinal: normoactive bowel sounds, no tenderness, obese Integumentary: no rash Neurologic: no focal deficit, no asterixis, alert and oriented x3, other ( slurred speech) Musculoskeletal: other (no edema) Psychiatric: mood/affect appropriate, cooperative - Lab 01/05/17 06:20 01/06/17 06:09 Most recent lab results Calcium 8.7 mg/dL (8.4-10.2) 01/06/17 06:09 Phosphorus 2.90 mg/dL (2.5-4.5) 01/04/17 04:16 Magnesium 2.30 mg/dL (1.7-2.3) 01/04/17 04:16 Urine Creatinine 240.6 mg/dL (0.1-20.0) H 08/17/17 Unknown Urine Sodium 21 mEq/L 01/03/17 Unknown
[2017-01-06] MEDS: ROCEPHIN/NS 1 GM/50 ML 1 GM/50 ML BAG IV SCH (09:30)
[2017-01-06] MEDS: APRESOLINE PO SCH ×2 (09:30→14:21)
--- NOTE | 2017-01-06 09:44 | Discharge Summary ---
Providers - Providers Date of Admission: 01/01/17 02:42 Date of discharge: 01/06/17 Attending physician: GABRIELLA ESPARZA 01/03/17 08:07 Physical Therapy Evaluation and Treat [CONS] Routine Comment: Reason For Exam: unsteady gait, ?need placement 01/03/17 09:42 Consult to Physician [CONS] Routine Consulting Provider: SHENG VELÁSQUEZ Reason For Exam: renal failure Place consult to:: DR. VELÁSQUEZ Notified:: OFFICE Phone number called:: IN HOUSE Was contact made?: Yes If yes, spoke with:: DR. VELÁSQUEZ Time called:: 10:15 01/03/17 13:17 Consult to Physician [CONS] Routine Consulting Provider: RAGHU ZAMORA Reason For Exam: persistant abd pain out of proportion to exam Place consult to:: Ayaan Zamora MD Notified:: OFFICE Phone number called:: [phone] Was contact made?: Yes If yes, spoke with:: MERRY Time called:: 13:36 Comment:: HELEN NOTIFIED Primary care physician: [employer] Hospitalization Reason for admission: abdominal pain Condition: Stable Pertinent studies: CT abdomen MRA abdomen Hospital course: Patient is a 56 years old obese -Swiss female with hypertension, diabetes, hyperlipidemia, chronic pain syndrome and narcotic use/? abuse who presented for abdominal pain. Found to have acute kidney injury likely secondary to volume depletion; responded well to IV hydration and resolved. Regarding acute abdominal pain, labs and CT abdomen have been unrevealing; GI consulted and MRA abdomen ordered and mesenteric ischemia excluded. Her narcotic regimen has been adjusted and she was counseled. Discharged in stable condition with PCP follow-up. Discharge diagnoses: 1. Acute renal failure - resolved 2. Acute metabolic encephalopathy - resolved 3. Abdominal pain - chronic 4. HTN - regimen adjusted 5. DM 6. HPL 7. Chronic pain syndrome 8. Obesity Disposition: DC-01 TO HOME OR SELFCARE Time spent for discharge: 35 min Core Measure Documentation - Palliative Care Palliative Care/ Comfort Measures: Not Applicable - Core Measures Any of the following diagnoses?: none Exam - Physical Exam Narrative exam: Seen and examined: - Constitutional Vitals: Temp Pulse Resp BP Pulse Ox 98.5 F 86 20 142/82 97 01/06/17 07:00 01/06/17 09:30 01/06/17 07:00 01/06/17 09:30 01/06/17 07:00 General appearance: Present: no acute distress, obese - Neck Neck: Present: supple, normal ROM. Absent: masses or JVD - Respiratory Respiratory effort: normal Respiratory: bilateral: CTA, negative: rhonchi, wheezing - Cardiovascular Rhythm: regular Heart Sounds: Present: S1 & S2. 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 Follow up with: PRIMARY CARE, [Primary Care Provider] - 3-5 Days Prescriptions: AtorvaSTATin [Lipitor] 40 mg PO QHS #30 tablet Insulin Detemir [Levemir] 10 units SUB-Q QHS 30 Days Aspirin [Aspirin TAB] 325 mg PO QDAY #30 tablet Clopidogrel [Plavix] 75 mg PO QDAY #30 tablet Docusate Sodium [Colace CAP] 100 mg PO BID #60 capsule hydrALAZINE [Apresoline TAB] 25 mg PO TID #90 tablet Metoclopramide [Reglan TAB] 5 mg PO AC #90 tablet oxyCODONE /ACETAMINOPHEN [Percocet 5/325 mg] 1 tab PO Q8HR PRN #12 tablet PRN Reason: Pain Pantoprazole [Protonix TAB] 40 mg PO DAILY #30 tablet Potassium Chloride [K-Dur] 20 meq PO QDAY #30 tablet
[2017-01-06] MEDS ORDERED: Fluarix Quad 2017-2018(36 MOS+) IM ONE (12:00)
[2017-01-06 14:22] VITALS: BP 137/66
== END 2017-01-06 16:00 | disposition home or self-care (01) | DRG 682 ==
LOC: ED 21:11 → 3A 01-01 02:42
PROVIDERS: ADMIT Internal Medicine; ATTEND Internal Medicine
PROC: 3E0234Z Introduction of Serum, Toxoid and Vaccine into Muscle, Percutaneous Approach (ICD-10-PCS; principal; 2017-01-06)
DX: N17.0 Acute kidney failure with tubular necrosis (principal); G93.41 Metabolic encephalopathy; R65.10 Systemic inflammatory response syndrome (SIRS) of non-infectious origin without acute organ dysfunction; R10.9 Unspecified abdominal pain; E78.5 Hyperlipidemia, unspecified; K21.9 Gastro-esophageal reflux disease without esophagitis; M19.90 Unspecified osteoarthritis, unspecified site; E11.65 Type 2 diabetes mellitus with hyperglycemia; E11.22 Type 2 diabetes mellitus with diabetic chronic kidney disease; N18.9 Chronic kidney disease, unspecified; I12.9 Hypertensive chronic kidney disease with stage 1 through stage 4 chronic kidney disease, or unspecified chronic kidney disease; I25.10 Atherosclerotic heart disease of native coronary artery without angina pectoris; E66.9 Obesity, unspecified; G89.4 Chronic pain syndrome; E86.9 Volume depletion, unspecified; I95.9 Hypotension, unspecified; Z23 Encounter for immunization; Z88.5 Allergy status to narcotic agent; Z68.33 Body mass index [BMI] 33.0-33.9, adult; Z86.73 Personal history of transient ischemic attack (TIA), and cerebral infarction without residual deficits; Z79.4 Long term (current) use of insulin; Z90.49 Acquired absence of other specified parts of digestive tract; Z82.49 Family history of ischemic heart disease and other diseases of the circulatory system; Z90.710 Acquired absence of both cervix and uterus; Z79.82 Long term (current) use of aspirin
CPT/HCPCS: 36415; 70450; 71010; 74020; 74176; 74185; 76770; 80048; 80053; 80307; 80320; 81001; 82550; 82553; 82570; 82962; 83036; 83735; 84100; 84300; 84443; 84484; 85025; 85027; 85610; 85670; 85730; 87040; 90686; 93005; 93010; 96361; 96374; 96375; A9577; C8902; G0480; J0696; J1170; J1815; J1818; J1956; J2060; J2405; J7030

== ENCOUNTER 2017-01-07 15:36 | Emergency (ER) | payer OTHER ==
[2017-01-07] MEDS ORDERED: TYLENOL PO ONE (18:08)
[2017-01-07] MEDS ORDERED: BENTYL IM ONE (18:09)
[2017-01-07] MEDS ORDERED: CATAPRES PO ONE (18:10)
--- NOTE | 2017-01-07 18:10 | Emergency Department Report ---
ED General Adult HPI - General Chief complaint: Chest Pain Stated complaint: NAUSEA/VOMITING Time Seen by Provider: 01/07/17 17:44 Source: patient, family, EMS (ems notes not available at time of chart dictation), RN notes reviewed, old records reviewed Mode of arrival: Stretcher Limitations: No Limitations - History of Present Illness Initial comments: This is a 56-year-old female. Past medical history includes hypertension, diabetes, coronary artery disease, high cholesterol, GERD. She is accompanied by her sister, Ms. Holley Blackmon; [phone] The patient reports that she was on the toilet earlier on today, and had a mechanical fall, landing on her chest and head. Prior to the fall, she had no symptoms. After the fall, she reports headache and chest pain. She also describes abdominal pain. Patient has a history of stroke, and has chronic right-sided weakness which is not a new, worsening or different. The pain is sharp, and increases with palpation and range of motion, and it decreases with rest. Of note, patient recently admitted to the hospital for abdominal pain and multiple other complaints, found to have a mild aneurysmal dilatation of the thoracic aorta, however she had a negative MR angiogram of the abdomen and pelvis. She also has chronic renal insufficiency. As for her sister, the sister's concern that the patient may be drug seeking, and the patient's sister reports that while the patient was recently discharged with narcotic pain medication, the pharmacy would not fill it at the family endorsed concern that the patient may be drug seeking. The patient is not a homicidal suicidal, her pain increases with palpation and range of motion, and it decreases with rest, she is currently not interested in speaking to anyone about narcotic detox. -: Sudden Location: head, chest, abdomen Quality: aching Consistency: constant Improves with: rest Worsens with: movement Associated Symptoms: chest pain, headaches - Related Data Home Medications Medication Instructions Recorded Confirmed Last Taken Gabapentin [Neurontin] 300 mg PO Q8HR 01/07/17 01/07/17 Unknown Glimepiride [Amaryl] 1 mg PO QAM 01/07/17 01/07/17 Unknown Lisinopril [Zestril] 20 mg PO QDAY 01/07/17 01/07/17 Unknown Spironolactone [Aldactone] 50 mg PO QDAY 01/07/17 01/07/17 Unknown amLODIPine [Norvasc] 10 mg PO DAILY 01/07/17 01/07/17 Unknown cloNIDine [Catapres] 0.1 mg PO BID 01/07/17 01/07/17 Unknown Previous Rx's Medication Instructions Recorded Last Taken Type Sucralfate [Carafate] 1 gm PO HS #1 bottle 08/20/16 Unknown Rx Aspirin [Aspirin TAB] 325 mg PO QDAY #30 tablet 01/06/17 Unknown Rx AtorvaSTATin [Lipitor] 40 mg PO QHS #30 tablet 01/06/17 Unknown Rx Clopidogrel [Plavix] 75 mg PO QDAY #30 tablet 01/06/17 Unknown Rx Docusate Sodium [Colace CAP] 100 mg PO BID #60 capsule 01/06/17 Unknown Rx Insulin Detemir [Levemir] 10 units SUB-Q QHS 30 Days 01/06/17 Unknown Rx Metoclopramide [Reglan TAB] 5 mg PO AC #90 tablet 01/06/17 Unknown Rx Pantoprazole [Protonix TAB] 40 mg PO DAILY #30 tablet 01/06/17 Unknown Rx Potassium Chloride [K-Dur] 20 meq PO QDAY #30 tablet 01/06/17 Unknown Rx hydrALAZINE [Apresoline TAB] 25 mg PO TID #90 tablet 01/06/17 Unknown Rx oxyCODONE /ACETAMINOPHEN [Percocet 1 tab PO Q8HR PRN #12 tablet 01/06/17 Unknown Rx 5/325 mg] Allergies Allergy/AdvReac Type Severity Reaction Status Date / Time morphine AdvReac Vomiting Verified 12/31/16 21:46 ED Review of Systems ROS: Stated complaint: NAUSEA/VOMITING Other details as noted in HPI Constitutional: malaise, weakness Eyes: denies: vision change ENT: denies: epistaxis Respiratory: denies: cough Cardiovascular: chest pain Gastrointestinal: abdominal pain Musculoskeletal: back pain Skin: denies: lesions Neurological: weakness ED Past Medical Hx - Past Medical History Previous Medical History?: Yes Hx Hypertension: Yes Hx CVA: Yes Hx Heart Attack/AMI: No Hx Congestive Heart Failure: No Hx Diabetes: Yes Hx Deep Vein Thrombosis: No Hx Pulmonary Embolism: No Hx GERD: Yes Hx Liver Disease: No Hx Renal Disease: No Hx Sickle Cell Disease: No Hx Arthritis: Yes Hx Headaches / Migraines: No Hx Seizures: No Hx Kidney Stones: No Hx Asthma: No Hx COPD: No Hx Tuberculosis: No Hx Dementia: No Hx HIV: No Additional medical history: Gastroparesis. HIGH CHOLESTEROL - Surgical History Past Surgical History?: Yes Hx Coronary Stent: No Hx Open Heart Surgery: No Hx Pacemaker: No Hx Internal Defibrillator: No Hx Cholecystectomy: No Hx Appendectomy: Yes Hx Breast Surgery: No Additional Surgical History: Lysis of adhesions. hysterectomy - Social History Smoking Status: Unknown if ever smoked Substance Use Type: None - Medications Home Medications: Home Medications Medication Instructions Recorded Confirmed Last Taken Type Sucralfate [Carafate] 1 gm PO HS #1 bottle 08/20/16 01/07/17 Unknown Rx Aspirin [Aspirin TAB] 325 mg PO QDAY #30 tablet 01/06/17 01/07/17 Unknown Rx AtorvaSTATin [Lipitor] 40 mg PO QHS #30 tablet 01/06/17 01/07/17 Unknown Rx Clopidogrel [Plavix] 75 mg PO QDAY #30 tablet 01/06/17 01/07/17 Unknown Rx Docusate Sodium [Colace CAP] 100 mg PO BID #60 capsule 01/06/17 01/07/17 Unknown Rx Insulin Detemir [Levemir] 10 units SUB-Q QHS 30 Days 01/06/17 01/07/17 Unknown Rx Metoclopramide [Reglan TAB] 5 mg PO AC #90 tablet 01/06/17 01/07/17 Unknown Rx Pantoprazole [Protonix TAB] 40 mg PO DAILY #30 tablet 01/06/17 01/07/17 Unknown Rx Potassium Chloride [K-Dur] 20 meq PO QDAY #30 tablet 01/06/17 01/07/17 Unknown Rx hydrALAZINE [Apresoline TAB] 25 mg PO TID #90 tablet 01/06/17 01/07/17 Unknown Rx oxyCODONE /ACETAMINOPHEN [Percocet 1 tab PO Q8HR PRN #12 tablet 01/06/17 Unknown Rx 5/325 mg] Gabapentin [Neurontin] 300 mg PO Q8HR 01/07/17 01/07/17 Unknown History Glimepiride [Amaryl] 1 mg PO QAM 01/07/17 01/07/17 Unknown History Lisinopril [Zestril] 20 mg PO QDAY 01/07/17 01/07/17 Unknown History Spironolactone [Aldactone] 50 mg PO QDAY 01/07/17 01/07/17 Unknown History amLODIPine [Norvasc] 10 mg PO DAILY 01/07/17 01/07/17 Unknown History cloNIDine [Catapres] 0.1 mg PO BID 01/07/17 01/07/17 Unknown History ED Physical Exam - General Limitations: Physical Limitation General appearance: alert, in no apparent distress - Head Head exam: Present: atraumatic, normocephalic - Eye Eye exam: Present: normal appearance, PERRL, EOMI. Absent: nystagmus - ENT ENT exam: Present: normal exam, normal orophraynx, mucous membranes moist, normal external ear exam - Neck Neck exam: Present: normal inspection, full ROM. Absent: tenderness, meningismus - Respiratory Respiratory exam: Present: normal lung sounds bilaterally, chest wall tenderness. Absent: respiratory distress, wheezes, rales, rhonchi, stridor - Cardiovascular Cardiovascular Exam: Present: regular rate, normal rhythm, normal heart sounds. Absent: systolic murmur, diastolic murmur, rubs, gallop - GI/Abdominal GI/Abdominal exam: Present: soft, tenderness, normal bowel sounds. Absent: distended, guarding, rebound, rigid, pulsatile mass - Extremities Exam Extremities exam: Present: normal inspection, full ROM, normal capillary refill , other (the pelvis is stable. The compartments are soft. There is no long bony tenderness.). Absent: pedal edema, joint swelling, calf tenderness - Back Exam Back exam: Present: normal inspection, paraspinal tenderness, vertebral tenderness - Neurological Exam Neurological exam: Present: alert, oriented X3, motor sensory deficit (chronic weakness in the right upper and right lower extremity) - Psychiatric Psychiatric exam: Present: normal affect, normal mood - Skin Skin exam: Present: warm, dry, intact, normal color. Absent: rash ED Course Vital Signs 01/07/17 01/07/17 01/07/17 15:57 16:00 16:15 Temperature Pulse Rate 83 105 H 108 H Respiratory 16 37 H 32 H Rate Blood Pressure 213/102 213/102 Blood Pressure [Right] O2 Sat by Pulse 100 Oximetry 01/07/17 01/07/17 01/07/17 16:22 16:27 19:09 Temperature 98.1 F Pulse Rate 101 H Respiratory Rate Blood Pressure 218/124 Blood Pressure [Right] O2 Sat by Pulse Oximetry 01/07/17 01/07/17 19:10 20:51 Temperature Pulse Rate 104 H 91 H Respiratory 18 18 Rate Blood Pressure Blood Pressure 218/124 148/76 [Right] O2 Sat by Pulse 100 100 Oximetry - Reevaluation(s) Reevaluation #1: 01/07/17 19:31 Differential diagnosis: Intracranial injury, cervical spine injury, chest wall contusion, blunt cardiac injury, blunt abdominal injury, drug seeking behavior, narcotic dependence Assessment and plan: 56-year-old female with known history of narcotic dependence status post minor mechanism mechanical fall. Given history of stroke with residual deficits, it is difficult to obtain an objective examination. Her sister subjectively feels that patient is at her baseline. The patient is resting quite comfortably. Recently had a negative urinalysis, laboratory studies so far are unremarkable, EKG does not demonstrate arrhythmia , troponin is negative, therefore blunt cardiac injury is very unlikely. Patient is alert to name, and location, however she had difficulty multiplying [phone], and she misidentified a color of my shift. There may be a component of drug-seeking behavior or malingering, however concussion is also a possibility. Therefore, we will obtain CT scan of the brain and cervical spine. Head reproducible chest wall tenderness, again, mechanism doubt serious intrathoracic injury, but given her tenderness, and probable concussion, we will obtain CT scan of the chest, abdomen, pelvis to exclude serious traumatic injuries. The patient is currently resting currently in no distress, x-ray of the chest and pelvis negative. Reevaluation #2: 01/07/17 19:34 Patient has a history of chronic hypertension. Clonidine is ordered. No active vomiting at this time. Reevaluation #3: 01/07/17 20:34 Sleeping comfortably. Belly soft a repeat examination. No tenderness at this time. Tolerating liquid feeds. Hypertension is appreciated, this is chronic, and she can follow up with her outpatient primary care doctor. As for the [employer] clinical policy on hypertension: . Are ED blood pressure readings accurate and reliable for screening asymptomatic patients for hypertension? Level A recommendations. None specified. Level B recommendations. If blood pressure measurements are persistently elevated with a systolic blood pressure greater than 140 mm Hg or diastolic blood pressure greater than 90 mm Hg, the patient should be referred for follow- up of possible hypertension and blood pressure management. Level C recommendations. Patients with a single elevated blood pressure reading may require further screening for hypertension in the outpatient setting. 2. Do asymptomatic patients with elevated blood pressures benefit from rapid lowering of their blood pressure? Level A recommendations. None specified. Level B recommendations. (1) Initiating treatment for asymptomatic hypertension in the ED is not necessary when patients have follow-up; (2) Rapidly lowering blood pressure in asymptomatic patients in the ED is unnecessary and may be harmful in some patients; (3) When ED treatment for asymptomatic hypertension is initiated, blood pressure management should attempt to gradually lower blood pressure and should not be expected to be normalized during the initial ED visit. Troponin is negative. Repeat EKG is morphologically unremarkable and unchanged , therefore blunt cardiac injury is very unlikely. Mental status improved. Likely concussion. 01/07/17 20:37 Reevaluation #4: 01/07/17 20:41 Repeat blood pressure 148/76. No active vomiting. appears quite comfortable. ED Medical Decision Making - Lab Data Result diagrams: 01/07/17 18:00 01/07/17 18:00 Vital Signs 01/07/17 01/07/17 01/07/17 15:57 16:00 16:15 Temperature Pulse Rate 83 105 H 108 H Respiratory 16 37 H 32 H Rate Blood Pressure 213/102 213/102 Blood Pressure [Right] O2 Sat by Pulse 100 Oximetry 01/07/17 01/07/17 01/07/17 16:22 16:27 19:09 Temperature 98.1 F Pulse Rate 101 H Respiratory Rate Blood Pressure 218/124 Blood Pressure [Right] O2 Sat by Pulse Oximetry 01/07/17 19:10 Temperature Pulse Rate 104 H Respiratory 18 Rate Blood Pressure Blood Pressure 218/124 [Right] O2 Sat by Pulse 100 Oximetry - EKG Data -: EKG Interpreted by Me - EKG Data 01/07/17 19:34 Sinus tachycardia, 104 bpm, QTC 491 ms, left ventricular hypertrophy, abnormal EKG, not morphologically consistent with STEMI - Radiology Data Radiology results: report reviewed, image reviewed interpreted by me: X-ray is negative. X-ray of the pelvis is negative. Critical care attestation.: If time is entered above; I have spent that time in minutes in the direct care of this critically ill patient, excluding procedure time. ED Disposition Clinical Impression: Hypertension, Abdominal pain in female patient, Fall Disposition: DC-01 TO HOME OR SELFCARE Is pt being admited?: No Does the pt Need Aspirin: No Condition: Good Instructions: Hypertension (ED) Additional Instructions: Pain typically gets worse before it gets better after mechanical fall. Continue current outpatient medications. Follow up with the primary care doctor within the next 7-10 days for urinary chest wall pain, abdominal pain, and elevated blood pressure. Please make certain to follow-up for elevated blood pressure. Her blood pressure was elevated while in the emergency department, and this can result in , disability, paralysis, loss of quality of life if hypertension is better controlled. Return to the ER right away with new pain, worse pain, migration of pain, fevers, chills, confusion, intractable nausea or vomiting, inability to tolerate liquid feeds. Please note that CT scan of the chest inserted nonspecific pulmonary nodule, this should be followed up and monitored by her primary care doctor within the next 6 months. Not having this followed up could resultant undiagnosed tumor/cancer/ malignancy. Referrals: PRIMARY CARE, [Primary Care Provider] - 3-5 Days CAROLEE JONES MD [Staff Physician] - 3-5 Days KYLE RAPP MD [Staff Physician] - 3-5 Days
[2017-01-07 18:46] LABS: Hematocrit 37.4 % (30.3-42.9); Hemoglobin 12.1 gm/dl (10.1-14.3); Mean Corpuscular HGB Conc 32 % (30-34); Mean Corpuscular Hemoglobin 26 pg (28-32); Mean Corpuscular Volume 81 fl (79-97); Platelet Count 371 K/mm3 (140-440); Red Blood Count 4.62 M/mm3 (3.65-5.03); Red Cell Distribution Width 16.2 % (13.2-15.2); White Blood Count 8.8 K/mm3 (4.5-11.0)
[2017-01-07 18:48] LABS: Anion Gap 24 mmol/L; BUN/Creatinine Ratio 8.75; Blood Urea Nitrogen 7 mg/dL (7-17); Calcium 9.8 mg/dL (8.4-10.2); Carbon Dioxide 19 mmol/L (22-30); Chloride 101.3 mmol/L (98-107); Glucose 181 mg/dL (65-100); Potassium 3.4 mmol/L (3.6-5.0); Sodium 141 mmol/L (137-145)
[2017-01-07 18:49] LABS: INR 0.95 (0.87-1.13)
[2017-01-07 18:50] LABS: Partial Thromboplastin Time 28.3 Sec. (24.2-36.6)
--- NOTE | 2017-01-07 19:42 | Cat Scan Report ---
FINAL REPORT PROCEDURE: CT HEAD/BRAIN WO CON TECHNIQUE: Computerized tomography of the head was performed without contrast material. HISTORY: trauma, concussion COMPARISON: 12/31/2016 FINDINGS: There is chronic appearing focal infarct in the posterior right parietal lobe, right temporal lobe, and left cerebellum. Mild involutional changes are present. Chronic appearing lacunar infarcts are noted in the bilateral basal ganglia and left mitesh. Calvarium is intact. Visualized paranasal sinuses and mastoids are aerated. IMPRESSION: No CT evidence of acute intracranial abnormality
--- NOTE | 2017-01-07 19:47 | Cat Scan Report ---
FINAL REPORT PROCEDURE: CT CERVICAL SPINE WO CON TECHNIQUE: Computerized tomography of the cervical spine was performed from the skull base to T1 without contrast material. HISTORY: trauma, concussion, neck pain COMPARISON: No prior studies are available for comparison. FINDINGS: The vertebral body heights and alignment are maintained. No acute fracture or subluxation is identified. Minimal degenerative disc changes are noted in the mid cervical levels. IMPRESSION: No acute fracture or subluxation is identified..
--- NOTE | 2017-01-07 20:18 | Cat Scan Report ---
FINAL REPORT PROCEDURE: CT CHEST WO CON TECHNIQUE: Computerized axial tomography of the chest was performed without contrast material. This study is performed without intravenous contrast and the sensitivity for pathology, including neoplasms, adenopathy, abscess, pulmonary embolism and aortic dissection, is reduced. HISTORY: trauma, chest wall pain COMPARISON: No prior studies are available for comparison. TECHNICAL QUALITY: Satisfactory. FINDINGS: Heart and pericardium: No pericardial effusion or thickening is identified. Thoracic aorta: Normal. Pulmonary vasculature: Normal. Lymph nodes: No enlarged thoracic lymph nodes. Lungs: 5 millimeter medial left lung base nodule. Pleural space: No effusion, thickening, or pneumothorax. Musculoskeletal structures: No acute fracture is identified. Upper abdominal structures: See separate CT report. IMPRESSION: 5 millimeter left lung base nodule. No acute abnormality is identified.
--- NOTE | 2017-01-07 20:29 | Cat Scan Report ---
FINAL REPORT PROCEDURE: CT ABDOMEN PELVIS WO CON TECHNIQUE: Computerized axial tomography of the abdomen and pelvis was performed without intravenous contrast. This study is performed without intravascular contrast material and its sensitivity for abdominal and pelvic pathology, including neoplasms, inflammation, abscess, free fluid, thrombosis, arterial dissection and infarction, is reduced compared with a contrast enhanced study. HISTORY: trauma, abdominal pain COMPARISON: No prior studies are available for comparison. FINDINGS: Visualized lower thorax: Fine nodular pattern in the right middle lobe may be related to an atypical infectious process. Liver: Normal size and attenuation. Spleen: Normal size and attenuation. Gallbladder and biliary system: There has been cholecystectomy. Pancreas: Normal. Adrenals: Normal. Kidneys: Normal. GI tract: Moderate volume of stool is seen in the colon, compatible with constipation. No bowel obstruction or acute inflammation is seen. Lymph nodes and mesentery: Normal. Vasculature: Normal. Bladder: Air is present within the urinary bladder lumen. Correlate for any recent instrumentation. Reproductive organs: Uterus is not visualized. Peritoneum: No free fluid. Musculoskeletal structures: No significant abnormality. Other: None. IMPRESSION: Moderate constipation. No acute post traumatic abnormality is identified.
[2017-01-07 20:51] VITALS: BP 148/76
--- NOTE | 2017-01-08 07:48 | XRay Report ---
Single view chest: Compared to 01/02/17. History: Trauma, chest wall pain. Findings: Normal cardiomediastinal silhouette. Trachea is midline. No consolidation, pneumothorax or pleural effusion. Impression: No acute cardiopulmonary findings.
--- NOTE | 2017-01-08 10:36 | XRay Report ---
AP PELVIS: History: Trauma with pelvic pain. AP view of the pelvis shows normal pelvic contour and soft tissues. The hips are symmetric and within normal limits as are the sacroiliac joints. IMPRESSION: Normal pelvis.
== END 2017-01-07 21:33 | disposition home or self-care (01) ==
LOC: ED 15:36
DX: R10.9 Unspecified abdominal pain (principal); I10 Essential (primary) hypertension; W19.XXXA Unspecified fall, initial encounter; Y93.9 Activity, unspecified; Y92.9 Unspecified place or not applicable; Y99.9 Unspecified external cause status
CPT/HCPCS: 36415; 70450; 71010; 71250; 72125; 72170; 74176; 80048; 83690; 84484; 85027; 85610; 85730; 93005; 93010; 96372; 99285; J0500

== ENCOUNTER 2017-07-15 13:40 | Emergency (ER) | payer OTHER ==
[2017-07-15] MEDS ORDERED: NACL 0.9% 1000 ML 1,000 ML ONE ×2 (13:50→21:07)
[2017-07-15] MEDS ORDERED: NACL 0.9% 500 ML 500 ML IV ONE (14:18)
--- NOTE | 2017-07-15 14:20 | Emergency Department Report ---
ED General Adult HPI - General Chief complaint: Altered Mental Status Stated complaint: DIABETIC Time Seen by Provider: 07/15/17 14:09 Source: family, EMS (verbal report received from EMS.ems notes not available at time of chart dictation), RN notes reviewed, old records reviewed Mode of arrival: Stretcher Limitations: Altered Mental Status, Physical Limitation - History of Present Illness Initial comments: This is a 56-year-old female. The patient is previously evaluated by me. Past medical history includes hypertension, diabetes, heart disease, high cholesterol , GERD/reflux. Patient's also has a past medical history of stroke, toxic metabolic encephalopathy The patient is brought to the hospital by EMS. As per verbal report from EMS, patient has not been responsive or acting her normal self for the past 3-4 days. The symptoms are constant. They do not radiate anywhere. As per EMS there no exacerbating or relieving factors. Family thinks there is no trauma but they are not certain. Patient is altered and cannot describe exacerbating or relieving factors, qualitative nature of symptoms, radiation. -: days(s) Consistency: constant Improves with: none Worsens with: none Associated Symptoms: confusion - Related Data Previous Rx's Medication Instructions Recorded Last Taken Type Potassium Chloride [K-Dur] 20 meq PO QDAY #30 tablet 01/06/17 Unknown Rx AtorvaSTATin [Lipitor] 40 mg PO QHS #30 tablet 04/05/17 Unknown Rx Clonidine HCl [Catapres] 0.3 mg PO TID #90 tablet 04/05/17 Unknown Rx Clopidogrel [Plavix] 75 mg PO QDAY #30 tablet 04/05/17 Unknown Rx Gabapentin [Neurontin] 300 mg PO TID #90 capsule 04/05/17 Unknown Rx Insulin Detemir [Levemir] 27 units SUB-Q BID #60 units 04/05/17 Unknown Rx Nortriptyline [Pamelor] 50 mg PO TID #90 capsule 04/05/17 Unknown Rx Pantoprazole [Protonix TAB] 40 mg PO DAILY #30 tablet 04/05/17 Unknown Rx amLODIPine [Norvasc] 10 mg PO QDAY #30 tablet 04/05/17 Unknown Rx hydrALAZINE [Apresoline TAB] 25 mg PO TID #90 tablet 04/05/17 Unknown Rx Allergies Allergy/AdvReac Type Severity Reaction Status Date / Time morphine AdvReac Vomiting Verified 07/15/17 13:49 ED Review of Systems ROS: Stated complaint: DIABETIC Other details as noted in HPI Comment: Unobtainable due to pts medical conditions ED Past Medical Hx - Past Medical History Previous Medical History?: Yes Hx Hypertension: Yes Hx CVA: Yes Hx Diabetes: Yes Hx GERD: Yes Hx Renal Disease: Yes Hx Arthritis: Yes Additional medical history: Gastroparesis. HIGH CHOLESTEROL - Surgical History Past Surgical History?: Yes Hx Appendectomy: Yes Additional Surgical History: Lysis of adhesions. hysterectomy - Social History Smoking Status: Unknown if ever smoked - Medications Home Medications: Home Medications Medication Instructions Recorded Confirmed Last Taken Type Potassium Chloride [K-Dur] 20 meq PO QDAY #30 tablet 01/06/17 03/19/17 Unknown Rx AtorvaSTATin [Lipitor] 40 mg PO QHS #30 tablet 04/05/17 Unknown Rx Clonidine HCl [Catapres] 0.3 mg PO TID #90 tablet 04/05/17 Unknown Rx Clopidogrel [Plavix] 75 mg PO QDAY #30 tablet 04/05/17 Unknown Rx Gabapentin [Neurontin] 300 mg PO TID #90 capsule 04/05/17 Unknown Rx Insulin Detemir [Levemir] 27 units SUB-Q BID #60 units 04/05/17 Unknown Rx Nortriptyline [Pamelor] 50 mg PO TID #90 capsule 04/05/17 Unknown Rx Pantoprazole [Protonix TAB] 40 mg PO DAILY #30 tablet 04/05/17 Unknown Rx amLODIPine [Norvasc] 10 mg PO QDAY #30 tablet 04/05/17 Unknown Rx hydrALAZINE [Apresoline TAB] 25 mg PO TID #90 tablet 04/05/17 Unknown Rx ED Physical Exam - General Limitations: Altered Mental Status General appearance: in no apparent distress, lethargic, in distress - Head Head exam: Present: atraumatic, normocephalic - Eye Eye exam: Present: normal appearance, EOMI - ENT ENT exam: Present: normal exam, normal orophraynx, mucous membranes dry - Neck Neck exam: Present: normal inspection, full ROM. Absent: tenderness, meningismus - Respiratory Respiratory exam: Present: normal lung sounds bilaterally, other (the patient is breathing rapidly with a rate of 44 bpm). Absent: respiratory distress - Cardiovascular Cardiovascular Exam: Present: normal rhythm, tachycardia, normal heart sounds. Absent: systolic murmur, diastolic murmur, rubs, gallop - GI/Abdominal GI/Abdominal exam: Present: soft, normal bowel sounds. Absent: distended, tenderness, guarding, rebound, rigid, pulsatile mass - Extremities Exam Extremities exam: Present: normal inspection, normal capillary refill. Absent: tenderness, pedal edema, joint swelling, calf tenderness - Back Exam Back exam: Present: normal inspection. Absent: tenderness, CVA tenderness (R), paraspinal tenderness, vertebral tenderness - Neurological Exam Neurological exam: Present: altered, other (patient is altered. Patient is nonverbal. Follow some commands. Cannot assess for cranial nerves, strength or sensation, patient noted to be moving 4 extremities spontaneously.) - Psychiatric Psychiatric exam: Present: depressed - Skin Skin exam: Present: warm, dry, intact, normal color. Absent: rash ED Course Vital Signs 07/15/17 07/15/17 07/15/17 13:43 13:45 14:00 Temperature 97.4 F L Pulse Rate 110 H 110 H 108 H Respiratory 44 H 36 H 34 H Rate Blood Pressure 181/97 166/104 185/95 Blood Pressure [Left] O2 Sat by Pulse 98 99 96 Oximetry 07/15/17 07/15/17 07/15/17 14:15 14:30 15:00 Temperature Pulse Rate 104 H 104 H 104 H Respiratory 39 H 39 H 37 H Rate Blood Pressure 154/93 152/89 161/94 Blood Pressure [Left] O2 Sat by Pulse 93 92 91 Oximetry 07/15/17 07/15/17 07/15/17 15:15 15:30 15:37 Temperature Pulse Rate 102 H 101 H Respiratory 34 H 34 H 36 H Rate Blood Pressure 144/93 157/88 Blood Pressure [Left] O2 Sat by Pulse 93 97 96 Oximetry 07/15/17 07/15/17 07/15/17 15:45 16:00 16:15 Temperature Pulse Rate 107 H 111 H 111 H Respiratory 30 H 32 H 37 H Rate Blood Pressure 157/88 132/77 132/77 Blood Pressure [Left] O2 Sat by Pulse 95 90 81 L Oximetry 07/15/17 07/15/17 07/15/17 16:30 16:45 17:03 Temperature Pulse Rate 111 H 108 H 109 H Respiratory 35 H 39 H 19 Rate Blood Pressure 142/92 142/92 142/92 Blood Pressure [Left] O2 Sat by Pulse 79 L 90 82 L Oximetry 07/15/17 07/15/17 07/15/17 17:15 17:30 17:45 Temperature Pulse Rate 108 H 108 H 107 H Respiratory 40 H 39 H 30 H Rate Blood Pressure 159/90 159/85 147/94 Blood Pressure [Left] O2 Sat by Pulse 94 88 84 Oximetry 07/15/17 07/15/17 07/15/17 18:01 18:15 19:22 Temperature 99.7 F H Pulse Rate 108 H 107 H 113 H Respiratory 39 H 41 H 25 H Rate Blood Pressure 133/88 133/88 Blood Pressure 139/96 [Left] O2 Sat by Pulse 89 91 90 Oximetry 07/15/17 21:32 Temperature Pulse Rate Respiratory 25 H Rate Blood Pressure 95/62 Blood Pressure [Left] O2 Sat by Pulse 96 Oximetry - Reevaluation(s) Reevaluation #1: 07/15/17 14:58 Differential diagnosis, including but not limited to: Intracranial injury, cervical spine injury, pneumonia, toxic encephalopathy, metabolic encephalopathy , urinary tract infection, dehydration, hyperosmolar,, diabetic ketoacidosis, rhabdomyolysis Assessment and plan: 56-year-old female with altered mental status, hyperglycemia, venous pH demonstrates acidosis, tachypnea. Most likely diabetic ketoacidosis. Etiology uncertain at this time. X-ray of the chest is clear. Noncontrast CT scan of the brain and cervical spine pending at this time. Laboratory studies pending at this time. EKG pending at this time. Patient will require admission. Reevaluation #2: 07/15/17 15:21 Laboratory studies demonstrate diabetic ketoacidosis, acute renal insufficiency hyperglycemia. IV fluids have been ordered, insulin has been ordered, a noncontrast CT scan of the brain suggest right-sided petechial hemorrhage. This hospital does not have neuro critical care available for consultation. Page is placed to [place] to arrange transfer for definitive care Reevaluation #3: 07/15/17 15:38 Blood pressure is now in the 140s. We will hold off on nicardipine drip. Awaiting callback from transfer center. Reevaluation #4: 07/15/17 16:29 Dr Adamson accepts to [facility] as an er to er transfer. recommends bp < 150. ok with 500 mg keppra if patient has a seizure 07/15/17 16:29 07/15/17 18:15 Awaiting transport to [place]. Nicardipine drip is initiated. Awaiting ambulance transfer. Reevaluation #5: 07/15/17 21:20 Patient found to be hypoxic on room air not protecting her airway saturating at 83-86% on a nonrebreather. Patient is now minimally responsive and not protecting her airway. She therefore will require intubation. Patient was placed on a BiPAP while I monitored her airway for delayed sequence intubation. Patient started on BiPAP therapy, and then transition to bag valve mask with a peep valve, as well as nasal cannula oxygen at 15 L/m. Patient induced with 200 mg of ketamine, and video laryngoscopy is performed, vocal cords are noted on direct inspection and exam, and a bougie catheter is placed through the trachea with successful introduction of a 7.5 endotracheal tube. Patient is then paralyzed with 200 mg of rocuronium, and she receives rapid bag valve mask ventilation, to compensate for her underlying diabetic ketoacidosis. Shortly after intubation, patient lost pulses. She receives aggressive CPR, standard ACLS medications, and is different blood times one at 275 J. Patient regains pulses. This hospital does not have hypothermia protocol. Patient found to be hypotensive, had a tachycardic rate at 180 bpm, appeared to be a supraventricular tachycardia, and receives 100 J cardioversion. Rate remains unchanged initially, and then begins to slow down. Given hypotension and hemodynamic instability, an emergent right sided femoral nonsterile central line was placed emergently for hemodynamic instability. This was placed with ultrasound guidance with one attempt with no obvious complications. EKG currently showing sinus tachycardia with ST depression, most likely strain. We contacted out to [facility] to update them - Consultations Consultation #1: 07/15/17 21:25 cardene drip is discontinued Consultation #2: 07/15/17 21:42 Dr Villegas, Dr Wheeler of [facility] informed of patients change in clinical status - Procedure Description Procedures done: The right side of the neck is prepped and draped with typical aseptic fashion. Ultrasound superficial probe is covered with a sterile probe cover, and this provider uses typical sterile technique and introduces a 3 inch 20-gauge Angiocath into the right internal jugular vein with one attempt with no complications. Patient tolerated the procedure well, there were no complications, typical sterile technique was adhered to. - Central Line Placement Right Femoral Consent Obtained: emergent situation Time Out Performed: Yes Patient Placed on Monitor/Pulse Ox: Yes MD Prep: mask, gown, gloves Central Line Prep: Povidone-Iodine 1% Ultrasound Used for Placement: Yes Central Line Lumen Inserted: triple Bloods Obtained for Lab: No Central Line Position: good blood return, all ports aspirated, flus, sutured in place with 2-0 Dressing Applied: Tegaderm Patient Tolerated Procedure: well Additional Comments: Patient has hemodynamic instability and is status post cardiac arrest, therefore requires emergent central venous access for vasoactive medications. - Intubation Time Out Performed: Yes Sedative: Ketamine Mg Given: 200 Paralytic: other (after endotracheal tube placement) Mg Given: 200 Laryngoscope: fiberoptic video scope Size: 3 Assist Device Used: fiberoptic device ET Tube Size: 7.5 Tube Secured Depth (cm): 23 Tube Secured Location: teeth Tube Placement Confirmation: visualized tube passing t Patient Tolerated Procedure: other (see note) Intubation Complications: other (see note) ED Medical Decision Making - Lab Data Result diagrams: 07/15/17 14:23 07/15/17 19:34 Vital Signs 07/15/17 13:43 Temperature 97.4 F L Pulse Rate 110 H Respiratory 44 H Rate Blood Pressure 181/97 O2 Sat by Pulse 98 Oximetry Lab Results 07/15/17 07/15/17 07/15/17 Range/Units 13:52 14:23 14:23 WBC 12.6 H (4.5-11.0) K/mm3 RBC 5.52 H (3.65-5.03) M/mm3 Hgb 14.2 (10.1-14.3) gm/dl Hct 47.4 H (30.3-42.9) % MCV 86 (79-97) fl MCH 26 L (28-32) pg MCHC 30 (30-34) % RDW 18.2 H (13.2-15.2) % Plt Count 372 (140-440) K/mm3 PT 15.8 H (12.2-14.9) Sec. INR 1.19 H (0.87-1.13) APTT 23.1 L (24.2-36.6) Sec. VBG pH (7.320-7.420) POC Glucose > 500 H (70-105) Lactic Acid (0.7-2.0) mmol/L Ammonia (25-60) umol/L Salicylates (2.8-20.0) mg/dL Acetaminophen (10.0-30.0) ug/mL Plasma/Serum Alcohol (0-0.07) % 07/15/17 07/15/17 07/15/17 Range/Units 14:23 14:23 14:23 WBC (4.5-11.0) K/mm3 RBC (3.65-5.03) M/mm3 Hgb (10.1-14.3) gm/dl Hct (30.3-42.9) % MCV (79-97) fl MCH (28-32) pg MCHC (30-34) % RDW (13.2-15.2) % Plt Count (140-440) K/mm3 PT (12.2-14.9) Sec. INR (0.87-1.13) APTT (24.2-36.6) Sec. VBG pH (7.320-7.420) POC Glucose (70-105) Lactic Acid (0.7-2.0) mmol/L Ammonia (25-60) umol/L Salicylates < 0.3 L (2.8-20.0) mg/dL Acetaminophen < 15.0 (10.0-30.0) ug/mL Plasma/Serum Alcohol < 0.01 (0-0.07) % 07/15/17 07/15/17 07/15/17 Range/Units 14:23 14:23 14:23 WBC (4.5-11.0) K/mm3 RBC (3.65-5.03) M/mm3 Hgb (10.1-14.3) gm/dl Hct (30.3-42.9) % MCV (79-97) fl MCH (28-32) pg MCHC (30-34) % RDW (13.2-15.2) % Plt Count (140-440) K/mm3 PT (12.2-14.9) Sec. INR (0.87-1.13) APTT (24.2-36.6) Sec. VBG pH 7.218 L (7.320-7.420) POC Glucose (70-105) Lactic Acid 2.40 H* (0.7-2.0) mmol/L Ammonia 56.0 (25-60) umol/L Salicylates (2.8-20.0) mg/dL Acetaminophen (10.0-30.0) ug/mL Plasma/Serum Alcohol (0-0.07) % - EKG Data -: EKG Interpreted by Me Rate: tachycardia - EKG Data 07/15/17 15:22 Sinus tachycardia, 102 bpm, normal axis, QTC prolonged, diffuse ST depression inferior leads, lateral leads, nonspecific ST abnormalities V1 and V2, aVR, compared to prior EKG from March 2017, abnormalities appear to be more pronounced. - Radiology Data Radiology results: pending, report reviewed, image reviewed interpreted by me: X-ray of the chest, interpreted by me: No acute disease X-ray of the chest, interpreted by radiology: No acute disease post intubation xr chest shows appropriate ett placement ct c spine negative - Medical Decision Making Differential diagnosis, including but not limited to: See medical decision making Critical Care Time: Yes Critical care time in (mins) excluding proc time.: 120 Critical care attestation.: If time is entered above; I have spent that time in minutes in the direct care of this critically ill patient, excluding procedure time. ED Disposition Clinical Impression: Diabetic ketoacidosis, Encephalopathy acute, Acute renal insufficiency Disposition: DC/TX- [facility] IP Is pt being admited?: No Condition: Critical Instructions: Diabetic Ketoacidosis (ED) Referrals: PRIMARY CARE, [Primary Care Provider] - 3-5 Days
[2017-07-15 14:36] LABS: Mean Corpuscular HGB Conc 30 % (30-34); Mean Corpuscular Volume 86 fl (79-97); Platelet Count 372 K/mm3 (140-440); Red Blood Count 5.52 M/mm3 (3.65-5.03); Red Cell Distribution Width 18.2 % (13.2-15.2)
[2017-07-15 14:38] LABS: Hematocrit 47.4 % (30.3-42.9); Hemoglobin 14.2 gm/dl (10.1-14.3); Mean Corpuscular Hemoglobin 26 pg (28-32)
[2017-07-15 14:46] LABS: INR 1.19 (0.87-1.13); Partial Thromboplastin Time 23.1 Sec. (24.2-36.6)
--- NOTE | 2017-07-15 14:48 | XRay Report ---
AP CHEST: HISTORY: Altered mental status AP view of the chest demonstrates a normal mediastinal and cardiac contour with clear lungs and normal bony and soft tissue structures. IMPRESSION: Unremarkable AP chest.
[2017-07-15 15:03] LABS: Alanine Aminotransferase 23 units/L (7-56); BUN/Creatinine Ratio 33; Blood Urea Nitrogen 98 mg/dL (7-17); Calcium 10.7 mg/dL (8.4-10.2); Hemolysis Index 31
--- NOTE | 2017-07-15 15:15 | Cat Scan Report ---
CT HEAD WITHOUT CONTRAST: HISTORY: Altered mental status. TECHNIQUE: Sequential 2.5mm CT images. COMPARISON: 03/19/17. FINDINGS: There are multiple chronic infarcts which are unchanged since the comparison exam. Chronic lacunar infarcts are identified in the left mitesh and bilateral basal ganglia. A 2.6 x 2.0 cm chronic cortical infarct is identified in the right posterior watershed region. A 2.1 x 1.3 cm chronic cortical infarct is identified in the right anterior temporal lobe. 1.5 cm chronic infarct in the left cerebellar hemisphere is unchanged. The right caudate nucleus and right putamen are slightly hyperintense on today's examination which is a new finding. This does not have the typical appearance of a hypertensive hemorrhage. I suppose a petechial hemorrhage could be considered. Internal density measures up to 53 Hounsfield units. Consider further evaluation with MRI. Mild cortical volume loss and mild chronic white matter changes are stable. Ventricular size is stable. IMPRESSION: Multiple chronic infarcts, see above. Subtle hyperdensity has developed in the right basal ganglia which is of uncertain significance. Petechial hemorrhage? These findings were discussed with Dr. Sanchez in the emergency department at 1507 hrs.
[2017-07-15] MEDS ORDERED: D50W (25GM) Syringe IV PRN (15:18)
[2017-07-15 15:33] LABS: Bacteria,Urine 1+ /HPF (Negative); Bilirubin,Urine NEG (Negative); Blood,Urine SM (Negative); Color,Urine Red (Yellow); Protein,Urine <15 mg/dL mg/dL (Negative); Urobilinogen,Urine < 2.0 mg/dL (<2.0)
[2017-07-15] MEDS ORDERED: NovoLIN R 100 UNITS in NACL 0.9% 99 ML IV SCH (16:00)
[2017-07-15] MEDS ORDERED: SODIUM CHLORIDE FLUSH SYRINGE 10 ML IV NR (16:00)
[2017-07-15] MEDS ORDERED: CARDENE 50 MG in NACL 0.9% 250ML 230 ML IV SCH (16:00)
[2017-07-15] MEDS ORDERED: D5W/0.45% NACL/KCL 20 MEQ 20 MEQ/1,000 ML BAG IV SCH (16:00)
[2017-07-15 16:08] LABS: Band Neutrophils # (Manual) 4.9 K/mm3; Basophils % (Manual) 0 % (0.0-1.8); Eosinophils % (Manual) 0 % (0.0-4.3); Total Cells Counted 100
[2017-07-15 16:09] LABS: Anisocytosis 1+; Ovalocytes Few; Platelet Estimate Consistent w Auto
[2017-07-15 16:29] LABS: Amphetamine Screen,Urine PRESUMPTIVE NEGATIVE; Benzodiazepines Screen,Urine PRESUMPTIVE NEGATIVE; Cannabinoid Screen,Urine PRESUMPTIVE NEGATIVE; Cocaine Screen,Urine PRESUMPTIVE NEGATIVE; Methadone Screen,Urine PRESUMPTIVE NEGATIVE; Opiate Screen,Urine PRESUMPTIVE NEGATIVE
[2017-07-15 18:13] LABS: Calcium 10.3 mg/dL (8.4-10.2)
--- NOTE | 2017-07-15 20:03 | Cat Scan Report ---
FINAL REPORT PROCEDURE: CT CERVICAL SPINE WO CON TECHNIQUE: Computerized tomography of the cervical spine was performed from the skull base to T1 without contrast material. DLP 683.92 mGy-cm. HISTORY: Altered mental status. COMPARISON: No prior studies are available for comparison. FINDINGS: C1-2: No significant abnormality. C2-3: No significant abnormality. C3-4: Tiny posterior and uncovertebral osteophytes. Mild slightly right paracentral diffuse disc bulge/protrusion. C4-5: Slight disc bulge. C5-6: Tiny posterior and uncovertebral osteophytes. Mild disc bulge. C6-7: Posterior and uncovertebral osteophytes with mild foraminal narrowing and canal stenosis.. C7-T1: No significant abnormality. Other: Normal alignment. Tiny osteophytes. Small lymph nodes scattered throughout the neck, likely reactive. Biapical scarring. Venous catheter in the right neck. IMPRESSION: Mild multilevel degenerative changes of the cervical spine.
[2017-07-15 20:07] LABS: Calcium 10.8 mg/dL (8.4-10.2)
[2017-07-15] MEDS ORDERED: KETALAR ONE (20:30)
[2017-07-15] MEDS ORDERED: ARTIFICIAL TEARS OPHTH OINT OU PRN (21:16)
[2017-07-15] MEDS ORDERED: NACL 0.9% 1000 ML 1,000 ML IV ONE ×2 (21:16→21:20)
[2017-07-15] MEDS ORDERED: KETALAR IV ONE (21:16)
[2017-07-15] MEDS ORDERED: ZEMURON IV ONE (21:16)
[2017-07-15] MEDS ORDERED: VASELINE LIP THERAPY TP PRN (21:16)
[2017-07-15] MEDS ORDERED: ATIVAN IV PRN (21:16)
--- NOTE | 2017-07-15 21:59 | XRay Report ---
FINAL REPORT PROCEDURE: XR CHEST 1V AP TECHNIQUE: Chest radiograph anteroposterior view. CPT 51025 HISTORY: ett placement COMPARISON: 03/23/2017 FINDINGS: Heart: Normal. Mediastinum/Vessels: Normal. Lungs/Pleural space: Normal. Bony thorax: No acute osseous abnormality. Life support devices: An endotracheal tube is identified terminating about 4.7 centimeters above the amanda.. IMPRESSION: Endotracheal tube is terminating about 4.7 centimeters above the amanda. No acute pulmonary process..
[2017-07-15 22:00] LABS: Calcium 12.8 mg/dL (8.4-10.2)
[2017-07-15] MEDS ORDERED: NACL 0.9% 500 ML IV SCH (22:00)
[2017-07-15] MEDS ORDERED: fentaNYL DRIP Premix 2,000 MCG/100 ML BAG IV SCH (22:00)
[2017-07-15] MEDS ORDERED: LEVOPHED DRIP 4 MG/NS 250 ML 4 MG/250 ML BAG IV SCH (22:00)
[2017-07-15 23:45] VITALS: BP 104/76
[2017-07-16 03:00] LABS: BUN/Creatinine Ratio 31; Blood Urea Nitrogen 97 mg/dL (7-17); Calcium 10.8 mg/dL (8.4-10.2)
[2017-07-16] MEDS ORDERED: SODIUM BICARBONATE IV ONE (14:50)
[2017-07-16] MEDS ORDERED: CALCIUM CHLORIDE IV ONE (14:50)
[2017-07-16] MEDS ORDERED: ADRENALIN ONE (14:50)
[2017-07-16] MEDS ORDERED: ZEMURON IV ONE (14:51)
== END 2017-07-16 00:36 | disposition short-term general hospital (02) ==
LOC: ED 13:40
DX: E11.10 Type 2 diabetes mellitus with ketoacidosis without coma (principal); G93.40 Encephalopathy, unspecified; N28.9 Disorder of kidney and ureter, unspecified; I47.1 Supraventricular tachycardia; I10 Essential (primary) hypertension; M19.90 Unspecified osteoarthritis, unspecified site; Z86.73 Personal history of transient ischemic attack (TIA), and cerebral infarction without residual deficits; E78.00 Pure hypercholesterolemia, unspecified; Z90.49 Acquired absence of other specified parts of digestive tract; Z90.710 Acquired absence of both cervix and uterus; Z88.5 Allergy status to narcotic agent
CPT/HCPCS: 31500; 36415; 36556; 51701; 70450; 71045; 72125; 80048; 80053; 80307; 81001; 82140; 82550; 82803; 82805; 82962; 83735; 84100; 84443; 84484; 85007; 85025; 85610; 85730; 87040; 87086; 92960; 93005; 93010; 96361; 96365; 96366; 96368; 96376; 99291; 99292; G0480; J0171; J3010; J7030; J7050; 80320; 94002; J1815